=== PATIENT | male | born 1935 | race American Indian/Alaskan Native ===

== ENCOUNTER 2017-10-31 11:09 | Emergency (ER) | payer MEDICARE ==
--- NOTE | 2017-10-31 12:12 | Emergency Department Report ---
ED General Adult HPI - General Chief complaint: Extremity Injury, Lower Stated complaint: OPEN SORES/BLISTERS ON BOTH LEGS Time Seen by Provider: 10/31/17 12:10 Source: patient Mode of arrival: Stretcher Limitations: No Limitations - History of Present Illness Initial comments: Chief complaint: Draining sores both feet, worsening chronic edema both legs. Patient has history of recent hospitalization for wet gangrene of both lower extremities, primarily both feet, which review of discharge summary from hospitalization at [facility] from October 19-, shows patient to have had wet gangrene, with report of maggots in the wound. Patient was treated with diuresis, antibiotics, and chronic medical conditions were also stabilized, and patient was discharged home with prescriptions for antibiotics, and patient was expecting home health care to be taking care of wound daily, but nobody came by. He also got no antibiotics, but lives in assisted living facility, takes care of all of his own activities of daily living, and manages her own medications, and did not fill prescriptions on his own. He comes in for check, primarily because he was getting no care at home, and reports that wound is draining somewhat, but significantly reduced, and chronic edema of both lower extremities is also significantly improved, although he still has significant edema and chronic venous changes of both lower extremities. He has not had any fever chills or diaphoresis, and no pain in his lower extremities. He reports having had CT angiography of both lower extremities, and this was OK, and he has chronic venous changes, and that he takes blood thinners for both his atrial fibrillation and his legs. He is not aware of any diagnosis of pulmonary embolism. Past medical history is significant for insulin-dependent diabetes mellitus, he takes before meals NovoLog, takes Xarelto for atrial fibrillation, as well as medication for hypertension, and intermittent COPD medications, but reports that he had quit smoking approximately 10-15 years ago. He manages to take care of himself at home, but is minimally ambulatory, and primarily gets around by wheelchair, but can stand and transfer okay, and receives meals provided by assisted living facility twice daily. He administers insulin with each meal, 7 units NovoLog. Has no additional acute complaints, no chest pain, no shortness of breath, no abdominal pain, no nausea or vomiting, no focal neurologic symptoms. Review of chart shows patient has an unfilled prescription for Augmentin, to be taken twice daily. Other medications were also refilled at time of discharge. These were also not refilled. Contact with Hospital reveals that patient was felt that his chronic venous insufficiency was too advanced for compression devices, and that he was to be managed in wound care clinic, here at [facility], and appointment had already been made for November 08, 1 week from now, and arrangements for transport her to be made at that time as well. He has not had follow-up with his routine physicians, including his regular [place] primary care physician. Has appointment for these in the coming months. - Related Data Allergies Allergy/AdvReac Type Severity Reaction Status Date / Time morphine AdvReac Vomiting Verified 10/31/17 14:15 ED Review of Systems ROS: Stated complaint: OPEN SORES/BLISTERS ON BOTH LEGS Other details as noted in HPI Comment: All other systems reviewed and negative Constitutional: denies: chills, diaphoresis, fever, malaise, weakness ENT: denies: throat pain Respiratory: denies: orthopnea, shortness of breath Cardiovascular: denies: chest pain, palpitations, edema, syncope Endocrine: no symptoms reported Gastrointestinal: denies: abdominal pain, nausea, diarrhea Musculoskeletal: denies: back pain, joint swelling, arthralgia Skin: other (chronic venous insufficiency changes with thickening of skin of both lower extremities,) Neurological: numbness (chronic neuropathy, both lower extremities), abnormal gait (limited ambulation, chronic, secondary to neuropathy and chronic leg edema ) Psychiatric: denies: anxiety, depression Hematological/Lymphatic: denies: easy bleeding, easy bruising ED Past Medical Hx - Past Medical History Previous Medical History?: Yes Hx Hypertension: Yes Hx Diabetes: Yes Additional medical history: Chronic venous insufficiency both lower extremities, - Surgical History Past Surgical History?: Yes Hx Open Heart Surgery: Yes - Social History Smoking Status: Never Smoker Substance Use Type: None ED Physical Exam - General Limitations: No Limitations General appearance: alert, in no apparent distress - Head Head exam: Present: atraumatic, normocephalic - ENT ENT exam: Present: normal exam, mucous membranes moist - Neck Neck exam: Present: normal inspection, full ROM. Absent: tenderness - Respiratory Respiratory exam: Present: normal lung sounds bilaterally. Absent: respiratory distress, wheezes, rales, rhonchi, chest wall tenderness - Cardiovascular Cardiovascular Exam: Present: regular rate, normal heart sounds - GI/Abdominal GI/Abdominal exam: Present: soft, normal bowel sounds. Absent: tenderness - Extremities Exam Extremities exam: Present: pedal edema (bilateral, marked, chronic), other ( marked chronic bilateral skin thickening secondary to chronic venous insufficiency, with areas of secondary desquamation dorsum of both feet, dry, no acute drainage identified, no overt gangrene). Absent: tenderness - Back Exam Back exam: Present: normal inspection. Absent: tenderness - Neurological Exam Neurological exam: Present: alert, CN II-XII intact, other (equal bilateral effort to move both lower extremities, but unable to lift off of stretcher due to weightman generalized weakness) - Psychiatric Psychiatric exam: Present: normal affect, normal mood - Skin Skin exam: Present: other (chronic bilateral venous changes both lower extremities, with marked thickening, lichenification, scaling, no active drainage) ED Course Vital Signs 10/31/17 11:30 Temperature 37.0 C Pulse Rate 72 Respiratory 18 Rate Blood Pressure 160/57 O2 Sat by Pulse 97 Oximetry ED Medical Decision Making - Medical Decision Making Patient has significant chronic venous insufficiency both lower extremities, but is stable with no evidence of acute inflammation or infection, with stable laboratory evaluation. Patient himself reports that edema is less than when he was hospitalized one week ago at [facility], and that drainage has almost completely subsided. He primarily comes in because he did not get his antibiotics, and apparently was unaware that he had a prescription and was responsible for obtaining his medications. He also has an appointment for follow-up in clinic, here at [facility], as he is felt to be too far advanced for outpatient treatment by home health, which is the proximate reason why he did not have any visits. Patient was explaining this, given initial dose of Augmentin, and will be referred back for outpatient follow-up, as she shows no signs of acute infection or decompensation. 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 He is stable for return to his prior level of care, and should have adequate treatment once he fills his Augmentin prescription - Differential Diagnosis cellulitis, gangrene, chronic venous insufficiency Critical Care Time: No Critical care attestation.: If time is entered above; I have spent that time in minutes in the direct care of this critically ill patient, excluding procedure time. 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 steam pan sponger use Diabetes mellitus complication status: with circulatory complication Diabetes mellitus complication detail: with other circulatory complications Qualified Code(s): E11.59 - Type 2 diabetes mellitus with other circulatory complications; Z79.4 - nursing home (current) use of insulin Disposition: TO HOME OR SELFCARE Is pt being admited?: No Does the pt Need Aspirin: No Condition: Stable Instructions: Diabetes Mellitus Type 2 in Adults (ED), Peripheral Vascular Disorders (ED), Stasis Dermatitis (ED) Additional Instructions: Your physical exam is stable today, with your legs showing no signs of recurrence of infection. You have a prescription for Augmentin, should have this filled, and take medicine twice daily. We have given first dose in the emergency department. You have an appointment for visit by the wound care clinic on November 08, and transfer request arrangements have or even made according to paperwork sent by your facility. Keep her legs elevated as much as possible, but you should change positions several times during the day, as this will keep fluid moving through your system , and increase fluid removal by your kidneys. Continue your other medications as before. Time of Disposition: 14:34
[2017-10-31 13:55] LABS: Alanine Aminotransferase 16 units/L (7-56); Albumin 3.1 g/dL (3.9-5); BUN/Creatinine Ratio 19; Blood Urea Nitrogen 15 mg/dL (9-20); Calcium 8.2 mg/dL (8.4-10.2); Hemolysis Index 7
[2017-10-31 13:56] LABS: Basophils # (Auto) 0.1 K/mm3 (0.0-0.1); Basophils % (Auto) 1.4 % (0.0-1.8); Eosinophils # (Auto) 0.3 K/mm3 (0.0-0.4); Hematocrit 33.2 % (35.5-45.6); Hemoglobin 10.7 gm/dl (11.8-15.2); Lymphocytes # (Auto) 1.6 K/mm3 (1.2-5.4); Lymphocytes % (Auto) 20.5 % (13.4-35.0); Mean Corpuscular HGB Conc 32 % (32-34); Mean Corpuscular Hemoglobin 27 pg (28-32); Mean Corpuscular Volume 84 fl (84-94); Monocytes # (Auto) 0.6 K/mm3 (0.0-0.8); Monocytes % (Auto) 7.4 % (0.0-7.3); Platelet Count 311 K/mm3 (140-440); Red Blood Count 3.97 M/mm3 (3.65-5.03); Red Cell Distribution Width 16.3 % (13.2-15.2)
[2017-10-31] MEDS ORDERED: AUGMENTIN 875 MG PO ONE (14:41)
[2017-10-31 15:12] VITALS: BP 164/76
== END 2017-10-31 15:27 | disposition home or self-care (01) ==
LOC: ED 11:09
DX: I87.2 Venous insufficiency (chronic) (peripheral) (principal); I10 Essential (primary) hypertension; I48.91 Unspecified atrial fibrillation; J44.9 Chronic obstructive pulmonary disease, unspecified; E11.59 Type 2 diabetes mellitus with other circulatory complications; Z79.4 Long term (current) use of insulin; Z88.5 Allergy status to narcotic agent
CPT/HCPCS: 36415; 80053; 82140; 83735; 83880; 85025; 85379; 99283

== ENCOUNTER 2017-11-08 09:38 | Outpatient (CLI) | payer MEDICARE ==
[2017-11-08] MEDS ORDERED: XYLOCAINE TOPICAL 4% TP ONE ×2 (10:32→12:25)
== END 2017-11-08 09:39 | disposition home or self-care (01) ==
LOC: WOUND 09:38
PROVIDERS: ATTEND Surgery
DX: E11.621 Type 2 diabetes mellitus with foot ulcer (principal); L97.512 Non-pressure chronic ulcer of other part of right foot with fat layer exposed; L97.522 Non-pressure chronic ulcer of other part of left foot with fat layer exposed; I25.10 Atherosclerotic heart disease of native coronary artery without angina pectoris; I89.0 Lymphedema, not elsewhere classified; I10 Essential (primary) hypertension; Z87.891 Personal history of nicotine dependence
CPT/HCPCS: 11042; 11045; G0463

== ENCOUNTER 2017-11-15 09:20 | Outpatient (CLI) | payer MEDICARE ==
[2017-11-15] MEDS ORDERED: XYLOCAINE TOPICAL 4% TP ONE ×2 (10:06→10:47)
[2017-11-15] MEDS ORDERED: AD OINTMENT TP ONE (10:06)
[2017-11-15] MEDS ORDERED: AD OINTMENT TP PRN (10:49)
== END 2017-11-15 09:21 | disposition home or self-care (01) ==
LOC: WOUND 09:20
PROVIDERS: ATTEND Surgery
DX: E11.621 Type 2 diabetes mellitus with foot ulcer (principal); L97.412 Non-pressure chronic ulcer of right heel and midfoot with fat layer exposed; L97.522 Non-pressure chronic ulcer of other part of left foot with fat layer exposed; I25.10 Atherosclerotic heart disease of native coronary artery without angina pectoris; I89.0 Lymphedema, not elsewhere classified; I10 Essential (primary) hypertension; Z87.891 Personal history of nicotine dependence
CPT/HCPCS: A6250

== ENCOUNTER 2017-11-20 11:56 | Outpatient (CLI) | payer MEDICARE ==
--- NOTE | 2017-11-21 11:40 | Vascular Lab Report ---
LOWER EXTREMITY VENOUS DUPLEX: REASON FOR EXAM: Lymphedema. COMMENTS ON THE RIGHT: All veins visualized are freely compressible without evidence of internal echogenicity. Flow is spontaneous and phasic throughout. COMMENTS ON THE LEFT: All veins visualized are freely compressible without evidence of internal echogenicity. Flow is spontaneous and phasic throughout. IMPRESSION: No evidence of acute or chronic deep venous thrombosis in either lower extremity.
== END 2017-11-20 11:57 | disposition home or self-care (01) ==
LOC: VAS 11:56
PROVIDERS: ATTEND Surgery
DX: I89.0 Lymphedema, not elsewhere classified (principal); L97.512 Non-pressure chronic ulcer of other part of right foot with fat layer exposed; L97.522 Non-pressure chronic ulcer of other part of left foot with fat layer exposed; E11.9 Type 2 diabetes mellitus without complications; I10 Essential (primary) hypertension; I73.9 Peripheral vascular disease, unspecified; Z88.6 Allergy status to analgesic agent
CPT/HCPCS: 93970

== ENCOUNTER 2017-11-22 09:33 | Outpatient (CLI) | payer MEDICARE ==
[2017-11-22] MEDS ORDERED: AD OINTMENT TP ONE (10:30)
[2017-11-22] MEDS ORDERED: XYLOCAINE TOPICAL 4% TP ONE (10:31)
[2017-11-23] MEDS ORDERED: AD OINTMENT TP SCH (10:00)
== END 2017-11-22 09:34 | disposition home or self-care (01) ==
LOC: WOUND 09:33
PROVIDERS: ATTEND Surgery
DX: E11.621 Type 2 diabetes mellitus with foot ulcer (principal); L97.522 Non-pressure chronic ulcer of other part of left foot with fat layer exposed; L97.419 Non-pressure chronic ulcer of right heel and midfoot with unspecified severity; I25.10 Atherosclerotic heart disease of native coronary artery without angina pectoris; I89.0 Lymphedema, not elsewhere classified; I10 Essential (primary) hypertension; Z87.891 Personal history of nicotine dependence
CPT/HCPCS: 29580; 29581; A6250

== ENCOUNTER → 2017-11-28 | Outpatient (CLI) | payer MEDICARE ==
[~2017-11-28] MED LIST: AD OINTMENT TP ONE; AD OINTMENT TP PRN; XYLOCAINE TOPICAL 4% TP ONE
== END | disposition home or self-care (01) ==
LOC: WOUND 12:59
PROVIDERS: ATTEND Surgery
DX: E11.621 Type 2 diabetes mellitus with foot ulcer (principal); L97.522 Non-pressure chronic ulcer of other part of left foot with fat layer exposed; L97.512 Non-pressure chronic ulcer of other part of right foot with fat layer exposed; I25.10 Atherosclerotic heart disease of native coronary artery without angina pectoris; I89.0 Lymphedema, not elsewhere classified; I10 Essential (primary) hypertension; Z87.891 Personal history of nicotine dependence
CPT/HCPCS: 29581; A6250

== ENCOUNTER 2017-12-05 10:54 | Outpatient (CLI) | payer MEDICARE ==
[2017-12-05] MEDS ORDERED: AD OINTMENT TP ONE (11:47)
[2017-12-05] MEDS ORDERED: XYLOCAINE TOPICAL 4% TP ONE ×2 (11:48→15:52)
[2017-12-06] MEDS ORDERED: AD OINTMENT TP SCH (10:00)
== END 2017-12-05 10:55 | disposition home or self-care (01) ==
LOC: WOUND 10:54
PROVIDERS: ATTEND Surgery
DX: E11.621 Type 2 diabetes mellitus with foot ulcer (principal); L97.522 Non-pressure chronic ulcer of other part of left foot with fat layer exposed; L97.512 Non-pressure chronic ulcer of other part of right foot with fat layer exposed; I25.10 Atherosclerotic heart disease of native coronary artery without angina pectoris; I89.0 Lymphedema, not elsewhere classified; I10 Essential (primary) hypertension; Z87.891 Personal history of nicotine dependence
CPT/HCPCS: A6250

== ENCOUNTER 2017-12-12 10:32 | Outpatient (CLI) | payer MEDICARE ==
[2017-12-12] MEDS ORDERED: XYLOCAINE TOPICAL 4% TP ONE ×2 (11:51→15:34)
== END 2017-12-12 10:33 | disposition home or self-care (01) ==
LOC: WOUND 10:32
PROVIDERS: ATTEND Surgery
DX: E11.621 Type 2 diabetes mellitus with foot ulcer (principal); L97.522 Non-pressure chronic ulcer of other part of left foot with fat layer exposed; L97.512 Non-pressure chronic ulcer of other part of right foot with fat layer exposed; I25.10 Atherosclerotic heart disease of native coronary artery without angina pectoris; I89.0 Lymphedema, not elsewhere classified; I10 Essential (primary) hypertension; Z87.891 Personal history of nicotine dependence

== ENCOUNTER 2017-12-19 10:07 | Outpatient (CLI) | payer MEDICARE ==
[2017-12-19] MEDS ORDERED: AD OINTMENT TP ONE (11:18)
[2017-12-19] MEDS ORDERED: XYLOCAINE TOPICAL 2% 30ML TP ONE (11:19)
== END 2017-12-19 10:08 | disposition home or self-care (01) ==
LOC: WOUND 10:07
PROVIDERS: ATTEND Surgery
DX: E11.621 Type 2 diabetes mellitus with foot ulcer (principal); L97.522 Non-pressure chronic ulcer of other part of left foot with fat layer exposed; L97.512 Non-pressure chronic ulcer of other part of right foot with fat layer exposed; I25.10 Atherosclerotic heart disease of native coronary artery without angina pectoris; I89.0 Lymphedema, not elsewhere classified; I10 Essential (primary) hypertension; Z87.891 Personal history of nicotine dependence
CPT/HCPCS: 99213; A6250; G0463

== ENCOUNTER 2018-01-17 11:05 | Outpatient (CLI) | payer MEDICARE ==
[2018-01-17] MEDS ORDERED: XYLOCAINE TOPICAL 4% TP ONE (11:29)
[2018-01-17] MEDS ORDERED: AD OINTMENT TP ONE (12:12)
[2018-01-17] MEDS ORDERED: AD OINTMENT TP PRN (16:42)
== END 2018-01-17 11:06 | disposition home or self-care (01) ==
LOC: WOUND 11:05
PROVIDERS: ATTEND Surgery
DX: E11.621 Type 2 diabetes mellitus with foot ulcer (principal); L97.522 Non-pressure chronic ulcer of other part of left foot with fat layer exposed; L97.512 Non-pressure chronic ulcer of other part of right foot with fat layer exposed; I25.10 Atherosclerotic heart disease of native coronary artery without angina pectoris; I89.0 Lymphedema, not elsewhere classified; I10 Essential (primary) hypertension; Z87.891 Personal history of nicotine dependence
CPT/HCPCS: A6250

== ENCOUNTER 2018-01-31 11:22 | Outpatient (CLI) | payer MEDICARE ==
[2018-01-31] MEDS ORDERED: XYLOCAINE TOPICAL 4% TP ONE (15:43)
[2018-02-05] MEDS ORDERED: XYLOCAINE TOPICAL 4% TP ONE (16:06)
== END 2018-01-31 11:23 | disposition home or self-care (01) ==
LOC: WOUND 11:22
PROVIDERS: ATTEND Surgery
DX: E11.621 Type 2 diabetes mellitus with foot ulcer (principal); L97.512 Non-pressure chronic ulcer of other part of right foot with fat layer exposed; L97.522 Non-pressure chronic ulcer of other part of left foot with fat layer exposed; I25.10 Atherosclerotic heart disease of native coronary artery without angina pectoris; I89.0 Lymphedema, not elsewhere classified; I10 Essential (primary) hypertension; Z87.891 Personal history of nicotine dependence

== ENCOUNTER 2018-04-16 12:40 | Outpatient (CLI) | payer MEDICARE | END 2018-04-16 12:41 | disposition home or self-care (01) | LOC: WOUND 12:40 | PROVIDERS: ATTEND Surgery | DX: E11.622 Type 2 diabetes mellitus with other skin ulcer (principal); L89.892 Pressure ulcer of other site, stage 2; L97.811 Non-pressure chronic ulcer of other part of right lower leg limited to breakdown of skin; E11.621 Type 2 diabetes mellitus with foot ulcer; L97.512 Non-pressure chronic ulcer of other part of right foot with fat layer exposed; L97.522 Non-pressure chronic ulcer of other part of left foot with fat layer exposed; I10 Essential (primary) hypertension; I25.10 Atherosclerotic heart disease of native coronary artery without angina pectoris; I89.0 Lymphedema, not elsewhere classified; Z87.891 Personal history of nicotine dependence ==

== ENCOUNTER 2018-04-25 09:15 | Outpatient (CLI) | payer MEDICARE ==
[2018-04-25] MEDS ORDERED: XYLOCAINE TOPICAL 4% TP ONE (09:43)
== END 2018-04-25 09:16 | disposition home or self-care (01) ==
LOC: WOUND 09:15
PROVIDERS: ATTEND Surgery
DX: E11.622 Type 2 diabetes mellitus with other skin ulcer (principal); L89.892 Pressure ulcer of other site, stage 2; L97.812 Non-pressure chronic ulcer of other part of right lower leg with fat layer exposed; E11.621 Type 2 diabetes mellitus with foot ulcer; L97.512 Non-pressure chronic ulcer of other part of right foot with fat layer exposed; L97.522 Non-pressure chronic ulcer of other part of left foot with fat layer exposed; I25.10 Atherosclerotic heart disease of native coronary artery without angina pectoris; I89.0 Lymphedema, not elsewhere classified; Z87.891 Personal history of nicotine dependence

== ENCOUNTER 2018-04-30 12:53 | Outpatient (CLI) | payer MEDICARE | END 2018-04-30 12:54 | disposition home or self-care (01) | LOC: WOUND 12:53 ==

== ENCOUNTER 2018-05-02 09:40 | Outpatient (CLI) | payer MEDICARE | END 2018-05-02 09:41 | disposition home or self-care (01) | LOC: WOUND 09:40 ==

== ENCOUNTER 2018-05-07 12:53 | Outpatient (CLI) | payer MEDICARE | END 2018-05-07 12:54 | disposition home or self-care (01) | LOC: WOUND 12:53 ==

== ENCOUNTER 2018-05-09 09:39 | Outpatient (CLI) | payer MEDICARE ==
[2018-05-09] MEDS ORDERED: AD OINTMENT TP PRN (10:30)
== END 2018-05-09 09:40 | disposition home or self-care (01) ==
LOC: WOUND 09:39
PROVIDERS: ATTEND Surgery
DX: E11.622 Type 2 diabetes mellitus with other skin ulcer (principal); L89.892 Pressure ulcer of other site, stage 2; L97.812 Non-pressure chronic ulcer of other part of right lower leg with fat layer exposed; E11.621 Type 2 diabetes mellitus with foot ulcer; L97.512 Non-pressure chronic ulcer of other part of right foot with fat layer exposed; L97.522 Non-pressure chronic ulcer of other part of left foot with fat layer exposed; I25.10 Atherosclerotic heart disease of native coronary artery without angina pectoris; I89.0 Lymphedema, not elsewhere classified; I10 Essential (primary) hypertension; Z87.891 Personal history of nicotine dependence
CPT/HCPCS: A6250

== ENCOUNTER 2018-05-15 09:56 | Outpatient (CLI) | payer MEDICARE ==
--- NOTE | 2018-05-15 14:07 | Vascular Lab Report ---
FINAL REPORT EXAM: VL ARTERIAL DUPLEX LE BILAT HISTORY: L97.5176 NON-PRESSURE CHRONIC ULCER OF OTHER PART OF RIGHTFOOTWFA TECHNIQUE: Hernandez scale, color and pulsed Doppler ultrasound with color flow and spectral analysis micha luation of both lower extremities arteries were performed. PRIORS: None currently available. FINDINGS: RIGHT EXTREMITY: Distal iliac, RESTAURANT INSPECTOR, proximal SFA, DFA, mid SFA, distal SFA, popliteal, RADIOLOGY AIDE and MOI velocities in cm/se c: 131, 108, 103, 88, 125, 90, 77, 103, and 30. Monophasic flow in the RADIOLOGY AIDE and MOI. Otherwise triphas ic and biphasic flow in the remainder of the vessels. LEFT EXTREMITY: Distal iliac, RESTAURANT INSPECTOR, proximal SFA, DFA, mid SFA, distal SFA, popliteal, RADIOLOGY AIDE and MOI velocities in cm/se c: 146, 106, 90, 54, 97, 114, 55, 46, and 32. Monophasic flow at the distal SFA down to the ankle. Re mainder of the vessels demonstrate triphasic and biphasic flow. IMPRESSION: Hemodynamically significant stenosis between the right popliteal artery and MOI artery. Moderate to severe disease at the right RADIOLOGY AIDE. Hemodynamically significant stenosis between distal left SFA and popliteal artery.
== END 2018-05-15 09:57 | disposition home or self-care (01) ==
LOC: VAS 09:56
PROVIDERS: ATTEND Surgery
DX: I70.203 Unspecified atherosclerosis of native arteries of extremities, bilateral legs (principal); L97.512 Non-pressure chronic ulcer of other part of right foot with fat layer exposed; I10 Essential (primary) hypertension; Z88.6 Allergy status to analgesic agent
CPT/HCPCS: 93925

== ENCOUNTER 2018-05-16 13:37 | Outpatient (CLI) | payer MEDICARE | END 2018-05-16 13:38 | disposition home or self-care (01) | LOC: WOUND 13:37 | CPT/HCPCS: 29581 ==

== ENCOUNTER 2018-05-21 13:05 | Outpatient (CLI) | payer MEDICARE | END 2018-05-21 13:06 | disposition home or self-care (01) | LOC: WOUND 13:05 ==

== ENCOUNTER 2018-05-23 09:36 | Outpatient (CLI) | payer MEDICARE ==
[2018-05-23] MEDS ORDERED: XYLOCAINE TOPICAL 4% TP ONE (09:41)
[2018-05-23] MEDS ORDERED: SILVER NITRATE TP ONE (09:42)
[2018-05-23] MEDS ORDERED: AD OINTMENT TP PRN (09:42)
== END 2018-05-23 09:37 | disposition home or self-care (01) ==
LOC: WOUND 09:36
PROVIDERS: ATTEND Surgery
DX: E11.622 Type 2 diabetes mellitus with other skin ulcer (principal); L89.892 Pressure ulcer of other site, stage 2; L97.812 Non-pressure chronic ulcer of other part of right lower leg with fat layer exposed; I25.10 Atherosclerotic heart disease of native coronary artery without angina pectoris; I89.0 Lymphedema, not elsewhere classified; I10 Essential (primary) hypertension; Z87.891 Personal history of nicotine dependence
CPT/HCPCS: A6250

== ENCOUNTER 2018-05-28 12:11 | Outpatient (CLI) | payer MEDICARE | END 2018-05-28 12:12 | disposition home or self-care (01) | LOC: WOUND 12:11 ==

== ENCOUNTER 2018-06-04 12:55 | Outpatient (CLI) | payer MEDICARE | END 2018-06-04 12:56 | disposition home or self-care (01) | LOC: WOUND 12:55 ==

== ENCOUNTER 2018-06-06 09:20 | Outpatient (CLI) | payer MEDICARE | END 2018-06-06 09:21 | disposition home or self-care (01) | LOC: WOUND 09:20 ==

== ENCOUNTER 2018-06-19 09:39 | Outpatient (CLI) | payer MEDICARE | END 2018-06-19 09:40 | disposition home or self-care (01) | LOC: WOUND 09:39 | CPT/HCPCS: 99213; G0463 ==

== ENCOUNTER 2018-07-04 09:27 | Outpatient (CLI) | payer MEDICARE ==
[2018-07-04] MEDS ORDERED: AD OINTMENT TP PRN (10:30)
[2018-07-04] MEDS ORDERED: XYLOCAINE TOPICAL 4% TP ONE (10:30)
== END 2018-07-04 09:28 | disposition home or self-care (01) ==
LOC: WOUND 09:27
PROVIDERS: ATTEND Surgery
DX: E11.621 Type 2 diabetes mellitus with foot ulcer (principal); L97.512 Non-pressure chronic ulcer of other part of right foot with fat layer exposed; L97.522 Non-pressure chronic ulcer of other part of left foot with fat layer exposed; E11.622 Type 2 diabetes mellitus with other skin ulcer; L97.312 Non-pressure chronic ulcer of right ankle with fat layer exposed; L97.822 Non-pressure chronic ulcer of other part of left lower leg with fat layer exposed; I89.0 Lymphedema, not elsewhere classified; I25.10 Atherosclerotic heart disease of native coronary artery without angina pectoris; I10 Essential (primary) hypertension; Z87.891 Personal history of nicotine dependence
CPT/HCPCS: A6250

== ENCOUNTER 2018-07-16 12:52 | Outpatient (CLI) | payer MEDICARE | END 2018-07-16 12:53 | disposition home or self-care (01) | LOC: WOUND 12:52 | PROVIDERS: ATTEND Surgery | DX: E11.621 Type 2 diabetes mellitus with foot ulcer (principal); L97.512 Non-pressure chronic ulcer of other part of right foot with fat layer exposed; L97.522 Non-pressure chronic ulcer of other part of left foot with fat layer exposed; E11.622 Type 2 diabetes mellitus with other skin ulcer; L97.811 Non-pressure chronic ulcer of other part of right lower leg limited to breakdown of skin; L97.821 Non-pressure chronic ulcer of other part of left lower leg limited to breakdown of skin; I10 Essential (primary) hypertension; I25.10 Atherosclerotic heart disease of native coronary artery without angina pectoris; I89.0 Lymphedema, not elsewhere classified; Z87.891 Personal history of nicotine dependence ==

== ENCOUNTER 2018-07-18 09:15 | Outpatient (CLI) | payer MEDICARE ==
[2018-07-18] MEDS ORDERED: XYLOCAINE TOPICAL 4% TP ONE (10:09)
== END 2018-07-18 09:16 | disposition home or self-care (01) ==
LOC: WOUND 09:15
PROVIDERS: ATTEND Surgery
DX: E11.622 Type 2 diabetes mellitus with other skin ulcer (principal); L97.312 Non-pressure chronic ulcer of right ankle with fat layer exposed; L97.822 Non-pressure chronic ulcer of other part of left lower leg with fat layer exposed; E11.621 Type 2 diabetes mellitus with foot ulcer; L97.512 Non-pressure chronic ulcer of other part of right foot with fat layer exposed; L97.522 Non-pressure chronic ulcer of other part of left foot with fat layer exposed; I89.0 Lymphedema, not elsewhere classified; I25.10 Atherosclerotic heart disease of native coronary artery without angina pectoris; I10 Essential (primary) hypertension

== ENCOUNTER 2018-07-23 13:31 | Outpatient (CLI) | payer MEDICARE | END 2018-07-23 13:32 | disposition home or self-care (01) | LOC: WOUND 13:31 | PROVIDERS: ATTEND Surgery | DX: E11.622 Type 2 diabetes mellitus with other skin ulcer (principal); L97.312 Non-pressure chronic ulcer of right ankle with fat layer exposed; L97.822 Non-pressure chronic ulcer of other part of left lower leg with fat layer exposed; E11.621 Type 2 diabetes mellitus with foot ulcer; L97.512 Non-pressure chronic ulcer of other part of right foot with fat layer exposed; L97.522 Non-pressure chronic ulcer of other part of left foot with fat layer exposed; I25.10 Atherosclerotic heart disease of native coronary artery without angina pectoris; I89.0 Lymphedema, not elsewhere classified; I10 Essential (primary) hypertension ==

== ENCOUNTER 2018-07-25 09:31 | Outpatient (CLI) | payer MEDICARE ==
[2018-07-25] MEDS ORDERED: SILVER NITRATE TP ONE (10:00)
[2018-07-25] MEDS ORDERED: XYLOCAINE TOPICAL 4% TP ONE (10:00)
== END 2018-07-25 09:32 | disposition home or self-care (01) ==
LOC: WOUND 09:31
PROVIDERS: ATTEND Surgery
DX: E11.621 Type 2 diabetes mellitus with foot ulcer (principal); L97.512 Non-pressure chronic ulcer of other part of right foot with fat layer exposed; L97.528 Non-pressure chronic ulcer of other part of left foot with other specified severity; E11.622 Type 2 diabetes mellitus with other skin ulcer; L97.312 Non-pressure chronic ulcer of right ankle with fat layer exposed; I89.0 Lymphedema, not elsewhere classified; I25.10 Atherosclerotic heart disease of native coronary artery without angina pectoris; I10 Essential (primary) hypertension; Z87.891 Personal history of nicotine dependence

== ENCOUNTER 2018-07-30 13:33 | Outpatient (CLI) | payer MEDICARE | END 2018-07-30 13:34 | disposition home or self-care (01) | LOC: WOUND 13:33 | PROVIDERS: ATTEND Surgery | DX: E11.621 Type 2 diabetes mellitus with foot ulcer (principal); L97.512 Non-pressure chronic ulcer of other part of right foot with fat layer exposed; L97.522 Non-pressure chronic ulcer of other part of left foot with fat layer exposed; E11.622 Type 2 diabetes mellitus with other skin ulcer; L97.311 Non-pressure chronic ulcer of right ankle limited to breakdown of skin; I10 Essential (primary) hypertension; I25.10 Atherosclerotic heart disease of native coronary artery without angina pectoris; I89.0 Lymphedema, not elsewhere classified; Z87.891 Personal history of nicotine dependence ==

== ENCOUNTER 2018-08-01 09:22 | Outpatient (CLI) | payer MEDICARE ==
[2018-08-01] MEDS ORDERED: XYLOCAINE TOPICAL 4% TP ONE (09:29)
[2018-08-01] MEDS ORDERED: AD OINTMENT TP PRN (09:30)
== END 2018-08-01 09:23 | disposition home or self-care (01) ==
LOC: WOUND 09:22
PROVIDERS: ATTEND Surgery
DX: E11.621 Type 2 diabetes mellitus with foot ulcer (principal); L97.512 Non-pressure chronic ulcer of other part of right foot with fat layer exposed; L97.522 Non-pressure chronic ulcer of other part of left foot with fat layer exposed; E11.622 Type 2 diabetes mellitus with other skin ulcer; L97.311 Non-pressure chronic ulcer of right ankle limited to breakdown of skin; I10 Essential (primary) hypertension; I25.10 Atherosclerotic heart disease of native coronary artery without angina pectoris; I89.0 Lymphedema, not elsewhere classified; Z87.891 Personal history of nicotine dependence
CPT/HCPCS: A6250

== ENCOUNTER 2018-08-08 09:41 | Outpatient (CLI) | payer MEDICARE | END 2018-08-08 09:42 | disposition home or self-care (01) | LOC: WOUND 09:41 | PROVIDERS: ATTEND Surgery | DX: E11.621 Type 2 diabetes mellitus with foot ulcer (principal); L97.512 Non-pressure chronic ulcer of other part of right foot with fat layer exposed; L97.522 Non-pressure chronic ulcer of other part of left foot with fat layer exposed; E11.622 Type 2 diabetes mellitus with other skin ulcer; L97.319 Non-pressure chronic ulcer of right ankle with unspecified severity; I25.10 Atherosclerotic heart disease of native coronary artery without angina pectoris; I89.0 Lymphedema, not elsewhere classified; I10 Essential (primary) hypertension; Z87.891 Personal history of nicotine dependence ==

== ENCOUNTER 2018-08-13 14:00 | Outpatient (CLI) | payer MEDICARE | END 2018-08-13 14:01 | disposition home or self-care (01) | LOC: WOUND 14:00 | PROVIDERS: ATTEND Surgery | DX: E11.621 Type 2 diabetes mellitus with foot ulcer (principal); L97.512 Non-pressure chronic ulcer of other part of right foot with fat layer exposed; L97.522 Non-pressure chronic ulcer of other part of left foot with fat layer exposed; I25.10 Atherosclerotic heart disease of native coronary artery without angina pectoris; I89.0 Lymphedema, not elsewhere classified; I10 Essential (primary) hypertension; Z87.891 Personal history of nicotine dependence ==

== ENCOUNTER 2018-08-15 09:24 | Outpatient (CLI) | payer MEDICARE ==
[2018-08-15] MEDS ORDERED: XYLOCAINE TOPICAL 4% TP NR (10:00)
== END 2018-08-15 09:25 | disposition home or self-care (01) ==
LOC: WOUND 09:24
PROVIDERS: ATTEND Surgery
DX: E11.621 Type 2 diabetes mellitus with foot ulcer (principal); L97.512 Non-pressure chronic ulcer of other part of right foot with fat layer exposed; L97.522 Non-pressure chronic ulcer of other part of left foot with fat layer exposed; I25.10 Atherosclerotic heart disease of native coronary artery without angina pectoris; I89.0 Lymphedema, not elsewhere classified; I10 Essential (primary) hypertension; Z87.891 Personal history of nicotine dependence

== ENCOUNTER 2018-08-20 13:05 | Outpatient (CLI) | payer MEDICARE | END 2018-08-20 13:06 | disposition home or self-care (01) | LOC: WOUND 13:05 | PROVIDERS: ATTEND Surgery | DX: E11.621 Type 2 diabetes mellitus with foot ulcer (principal); L97.512 Non-pressure chronic ulcer of other part of right foot with fat layer exposed; L97.522 Non-pressure chronic ulcer of other part of left foot with fat layer exposed; I25.10 Atherosclerotic heart disease of native coronary artery without angina pectoris; I89.0 Lymphedema, not elsewhere classified; I10 Essential (primary) hypertension; Z87.891 Personal history of nicotine dependence ==

== ENCOUNTER 2018-08-22 09:17 | Outpatient (CLI) | payer MEDICARE | END 2018-08-22 09:18 | disposition home or self-care (01) | LOC: WOUND 09:17 | PROVIDERS: ATTEND Surgery | DX: E11.621 Type 2 diabetes mellitus with foot ulcer (principal); L97.512 Non-pressure chronic ulcer of other part of right foot with fat layer exposed; L97.522 Non-pressure chronic ulcer of other part of left foot with fat layer exposed; I25.10 Atherosclerotic heart disease of native coronary artery without angina pectoris; I89.0 Lymphedema, not elsewhere classified; I10 Essential (primary) hypertension; Z87.891 Personal history of nicotine dependence ==

== ENCOUNTER 2018-08-29 09:28 | Outpatient (CLI) | payer MEDICARE ==
[2018-08-29] MEDS ORDERED: SILVER NITRATE TP ONE (10:00)
[2018-08-29] MEDS ORDERED: XYLOCAINE TOPICAL 2% 5ML TP ONE (10:00)
== END 2018-08-29 09:29 | disposition home or self-care (01) ==
LOC: WOUND 09:28
PROVIDERS: ATTEND Surgery
DX: E11.621 Type 2 diabetes mellitus with foot ulcer (principal); L97.512 Non-pressure chronic ulcer of other part of right foot with fat layer exposed; L97.522 Non-pressure chronic ulcer of other part of left foot with fat layer exposed; I25.10 Atherosclerotic heart disease of native coronary artery without angina pectoris; I89.0 Lymphedema, not elsewhere classified; I10 Essential (primary) hypertension; Z87.891 Personal history of nicotine dependence

== ENCOUNTER 2018-09-05 09:22 | Outpatient (CLI) | payer MEDICARE | END 2018-09-05 09:23 | disposition home or self-care (01) | LOC: WOUND 09:22 | PROVIDERS: ATTEND Surgery | DX: E11.621 Type 2 diabetes mellitus with foot ulcer (principal); L97.512 Non-pressure chronic ulcer of other part of right foot with fat layer exposed; L97.522 Non-pressure chronic ulcer of other part of left foot with fat layer exposed; I25.10 Atherosclerotic heart disease of native coronary artery without angina pectoris; I89.0 Lymphedema, not elsewhere classified; I10 Essential (primary) hypertension; Z87.891 Personal history of nicotine dependence ==

== ENCOUNTER 2018-09-12 09:15 | Outpatient (CLI) | payer MEDICARE ==
[2018-09-12] MEDS ORDERED: SILVER NITRATE TP ONE (10:00)
[2018-09-12] MEDS ORDERED: XYLOCAINE TOPICAL 4% TP ONE (10:00)
== END 2018-09-12 09:16 | disposition home or self-care (01) ==
LOC: WOUND 09:15
PROVIDERS: ATTEND Surgery
DX: E11.621 Type 2 diabetes mellitus with foot ulcer (principal); L97.512 Non-pressure chronic ulcer of other part of right foot with fat layer exposed; L97.522 Non-pressure chronic ulcer of other part of left foot with fat layer exposed; I25.10 Atherosclerotic heart disease of native coronary artery without angina pectoris; I89.0 Lymphedema, not elsewhere classified; I10 Essential (primary) hypertension; Z87.891 Personal history of nicotine dependence

== ENCOUNTER 2018-09-17 13:20 | Outpatient (CLI) | payer MEDICARE | END 2018-09-17 13:21 | disposition home or self-care (01) | LOC: WOUND 13:20 | PROVIDERS: ATTEND Surgery | DX: E11.621 Type 2 diabetes mellitus with foot ulcer (principal); L97.512 Non-pressure chronic ulcer of other part of right foot with fat layer exposed; L89.891 Pressure ulcer of other site, stage 1; I25.10 Atherosclerotic heart disease of native coronary artery without angina pectoris; L97.522 Non-pressure chronic ulcer of other part of left foot with fat layer exposed; I89.0 Lymphedema, not elsewhere classified; I10 Essential (primary) hypertension; Z87.891 Personal history of nicotine dependence ==

== ENCOUNTER 2018-09-19 10:27 | Outpatient (CLI) | payer MEDICARE | END 2018-09-19 10:28 | disposition home or self-care (01) | LOC: WOUND 10:27 | PROVIDERS: ATTEND Surgery | DX: E11.621 Type 2 diabetes mellitus with foot ulcer (principal); L97.512 Non-pressure chronic ulcer of other part of right foot with fat layer exposed; L97.522 Non-pressure chronic ulcer of other part of left foot with fat layer exposed; I87.313 Chronic venous hypertension (idiopathic) with ulcer of bilateral lower extremity; I87.2 Venous insufficiency (chronic) (peripheral); E11.622 Type 2 diabetes mellitus with other skin ulcer; L97.822 Non-pressure chronic ulcer of other part of left lower leg with fat layer exposed; I25.10 Atherosclerotic heart disease of native coronary artery without angina pectoris; I89.0 Lymphedema, not elsewhere classified; Z87.891 Personal history of nicotine dependence ==

== ENCOUNTER 2018-09-26 10:33 | Outpatient (CLI) | payer MEDICARE | END 2018-09-26 10:34 | disposition home or self-care (01) | LOC: WOUND 10:33 | PROVIDERS: ATTEND Surgery | DX: E11.621 Type 2 diabetes mellitus with foot ulcer (principal); L97.512 Non-pressure chronic ulcer of other part of right foot with fat layer exposed; L97.522 Non-pressure chronic ulcer of other part of left foot with fat layer exposed; I87.313 Chronic venous hypertension (idiopathic) with ulcer of bilateral lower extremity; I87.2 Venous insufficiency (chronic) (peripheral); E11.622 Type 2 diabetes mellitus with other skin ulcer; L97.822 Non-pressure chronic ulcer of other part of left lower leg with fat layer exposed; I25.10 Atherosclerotic heart disease of native coronary artery without angina pectoris; I89.0 Lymphedema, not elsewhere classified; Z87.891 Personal history of nicotine dependence ==

== ENCOUNTER 2018-10-01 13:22 | Outpatient (CLI) | payer MEDICARE | END 2018-10-01 13:23 | disposition home or self-care (01) | LOC: WOUND 13:22 | PROVIDERS: ATTEND Surgery | DX: E11.621 Type 2 diabetes mellitus with foot ulcer (principal); L97.512 Non-pressure chronic ulcer of other part of right foot with fat layer exposed; L97.522 Non-pressure chronic ulcer of other part of left foot with fat layer exposed; I87.313 Chronic venous hypertension (idiopathic) with ulcer of bilateral lower extremity; E11.622 Type 2 diabetes mellitus with other skin ulcer; L97.822 Non-pressure chronic ulcer of other part of left lower leg with fat layer exposed; I25.10 Atherosclerotic heart disease of native coronary artery without angina pectoris; I89.0 Lymphedema, not elsewhere classified; Z87.891 Personal history of nicotine dependence ==

== ENCOUNTER 2018-10-03 10:00 | Outpatient (CLI) | payer MEDICARE | END 2018-10-03 10:01 | disposition home or self-care (01) | LOC: WOUND 10:00 | PROVIDERS: ATTEND Surgery | DX: E11.621 Type 2 diabetes mellitus with foot ulcer (principal); L89.891 Pressure ulcer of other site, stage 1; L97.512 Non-pressure chronic ulcer of other part of right foot with fat layer exposed; L97.522 Non-pressure chronic ulcer of other part of left foot with fat layer exposed; I87.313 Chronic venous hypertension (idiopathic) with ulcer of bilateral lower extremity; I87.2 Venous insufficiency (chronic) (peripheral); I25.10 Atherosclerotic heart disease of native coronary artery without angina pectoris; I89.0 Lymphedema, not elsewhere classified; Z87.891 Personal history of nicotine dependence ==

== ENCOUNTER 2018-10-08 13:16 | Outpatient (CLI) | payer MEDICARE | END 2018-10-08 13:17 | disposition home or self-care (01) | LOC: WOUND 13:16 | PROVIDERS: ATTEND Surgery | DX: E11.621 Type 2 diabetes mellitus with foot ulcer (principal); I87.313 Chronic venous hypertension (idiopathic) with ulcer of bilateral lower extremity; L89.891 Pressure ulcer of other site, stage 1; L97.512 Non-pressure chronic ulcer of other part of right foot with fat layer exposed; L97.522 Non-pressure chronic ulcer of other part of left foot with fat layer exposed; I25.10 Atherosclerotic heart disease of native coronary artery without angina pectoris; I89.0 Lymphedema, not elsewhere classified; Z87.891 Personal history of nicotine dependence ==

== ENCOUNTER 2018-10-10 13:30 | Outpatient (CLI) | payer MEDICARE | END 2018-10-10 13:31 | disposition home or self-care (01) | LOC: WOUND 13:30 | PROVIDERS: ATTEND Surgery | DX: E11.621 Type 2 diabetes mellitus with foot ulcer (principal); I87.313 Chronic venous hypertension (idiopathic) with ulcer of bilateral lower extremity; L89.891 Pressure ulcer of other site, stage 1; L97.522 Non-pressure chronic ulcer of other part of left foot with fat layer exposed; I25.10 Atherosclerotic heart disease of native coronary artery without angina pectoris; I89.0 Lymphedema, not elsewhere classified; I87.2 Venous insufficiency (chronic) (peripheral); Z87.891 Personal history of nicotine dependence ==

== ENCOUNTER 2018-10-15 13:47 | Outpatient (CLI) | payer MEDICARE | END 2018-10-15 13:48 | disposition home or self-care (01) | LOC: WOUND 13:47 | PROVIDERS: ATTEND Surgery | DX: E11.621 Type 2 diabetes mellitus with foot ulcer (principal); I87.313 Chronic venous hypertension (idiopathic) with ulcer of bilateral lower extremity; L97.522 Non-pressure chronic ulcer of other part of left foot with fat layer exposed; L97.512 Non-pressure chronic ulcer of other part of right foot with fat layer exposed; L89.891 Pressure ulcer of other site, stage 1; I25.10 Atherosclerotic heart disease of native coronary artery without angina pectoris; I89.0 Lymphedema, not elsewhere classified; I87.2 Venous insufficiency (chronic) (peripheral); Z87.891 Personal history of nicotine dependence ==

== ENCOUNTER 2018-10-17 10:53 | Outpatient (CLI) | payer MEDICARE | END 2018-10-17 10:54 | disposition home or self-care (01) | LOC: WOUND 10:53 | PROVIDERS: ATTEND Surgery | DX: E11.621 Type 2 diabetes mellitus with foot ulcer (principal); I87.313 Chronic venous hypertension (idiopathic) with ulcer of bilateral lower extremity; L97.522 Non-pressure chronic ulcer of other part of left foot with fat layer exposed; L89.891 Pressure ulcer of other site, stage 1; L97.512 Non-pressure chronic ulcer of other part of right foot with fat layer exposed; I25.10 Atherosclerotic heart disease of native coronary artery without angina pectoris; I89.0 Lymphedema, not elsewhere classified; I87.2 Venous insufficiency (chronic) (peripheral); Z87.891 Personal history of nicotine dependence ==

== ENCOUNTER 2018-10-22 13:41 | Outpatient (CLI) | payer MEDICARE | END 2018-10-22 13:42 | disposition home or self-care (01) | LOC: WOUND 13:41 | PROVIDERS: ATTEND Surgery | DX: E11.621 Type 2 diabetes mellitus with foot ulcer (principal); I87.313 Chronic venous hypertension (idiopathic) with ulcer of bilateral lower extremity; L97.522 Non-pressure chronic ulcer of other part of left foot with fat layer exposed; L89.891 Pressure ulcer of other site, stage 1; L97.512 Non-pressure chronic ulcer of other part of right foot with fat layer exposed; I25.10 Atherosclerotic heart disease of native coronary artery without angina pectoris; I89.0 Lymphedema, not elsewhere classified; I87.2 Venous insufficiency (chronic) (peripheral); Z87.891 Personal history of nicotine dependence ==

== ENCOUNTER 2018-10-24 09:56 | Outpatient (CLI) | payer MEDICARE ==
[2018-10-24] MEDS ORDERED: SILVER NITRATE TP ONE (10:30)
[2018-10-24] MEDS ORDERED: XYLOCAINE TOPICAL 4% TP ONE (10:30)
== END 2018-10-24 09:57 | disposition home or self-care (01) ==
LOC: WOUND 09:56
PROVIDERS: ATTEND Surgery
DX: E11.621 Type 2 diabetes mellitus with foot ulcer (principal); I87.313 Chronic venous hypertension (idiopathic) with ulcer of bilateral lower extremity; L97.522 Non-pressure chronic ulcer of other part of left foot with fat layer exposed; L89.891 Pressure ulcer of other site, stage 1; L97.512 Non-pressure chronic ulcer of other part of right foot with fat layer exposed; I25.10 Atherosclerotic heart disease of native coronary artery without angina pectoris; I89.0 Lymphedema, not elsewhere classified; I87.2 Venous insufficiency (chronic) (peripheral); Z87.891 Personal history of nicotine dependence

== ENCOUNTER 2018-10-31 10:54 | Outpatient (CLI) | payer MEDICARE | END 2018-10-31 10:55 | disposition home or self-care (01) | LOC: WOUND 10:54 | PROVIDERS: ATTEND Surgery | DX: E11.621 Type 2 diabetes mellitus with foot ulcer (principal); I87.313 Chronic venous hypertension (idiopathic) with ulcer of bilateral lower extremity; L97.522 Non-pressure chronic ulcer of other part of left foot with fat layer exposed; L89.891 Pressure ulcer of other site, stage 1; L97.512 Non-pressure chronic ulcer of other part of right foot with fat layer exposed; I25.10 Atherosclerotic heart disease of native coronary artery without angina pectoris; I89.0 Lymphedema, not elsewhere classified; I87.2 Venous insufficiency (chronic) (peripheral); Z87.891 Personal history of nicotine dependence ==

== ENCOUNTER 2018-11-07 09:55 | Outpatient (CLI) | payer MEDICARE | END 2018-11-07 09:56 | disposition home or self-care (01) | LOC: WOUND 09:55 | PROVIDERS: ATTEND Surgery | DX: E11.621 Type 2 diabetes mellitus with foot ulcer (principal); I87.313 Chronic venous hypertension (idiopathic) with ulcer of bilateral lower extremity; L97.522 Non-pressure chronic ulcer of other part of left foot with fat layer exposed; L89.891 Pressure ulcer of other site, stage 1; L97.512 Non-pressure chronic ulcer of other part of right foot with fat layer exposed; I25.10 Atherosclerotic heart disease of native coronary artery without angina pectoris; I89.0 Lymphedema, not elsewhere classified; I87.2 Venous insufficiency (chronic) (peripheral); Z87.891 Personal history of nicotine dependence ==

== ENCOUNTER 2018-11-21 10:20 | Outpatient (CLI) | payer MEDICARE ==
[2018-11-21] MEDS ORDERED: AD OINTMENT TP PRN (11:30)
== END 2018-11-21 10:21 | disposition home or self-care (01) ==
LOC: WOUND 10:20
PROVIDERS: ATTEND Surgery
DX: E11.621 Type 2 diabetes mellitus with foot ulcer (principal); I87.313 Chronic venous hypertension (idiopathic) with ulcer of bilateral lower extremity; L97.522 Non-pressure chronic ulcer of other part of left foot with fat layer exposed; L89.891 Pressure ulcer of other site, stage 1; L97.512 Non-pressure chronic ulcer of other part of right foot with fat layer exposed; I25.10 Atherosclerotic heart disease of native coronary artery without angina pectoris; I89.0 Lymphedema, not elsewhere classified; I87.2 Venous insufficiency (chronic) (peripheral); Z87.891 Personal history of nicotine dependence
CPT/HCPCS: A6250

== ENCOUNTER 2018-11-28 10:36 | Outpatient (CLI) | payer MEDICARE | END 2018-11-28 10:37 | disposition home or self-care (01) | LOC: WOUND 10:36 | PROVIDERS: ATTEND Surgery | DX: E11.621 Type 2 diabetes mellitus with foot ulcer (principal); I87.313 Chronic venous hypertension (idiopathic) with ulcer of bilateral lower extremity; L97.522 Non-pressure chronic ulcer of other part of left foot with fat layer exposed; L89.891 Pressure ulcer of other site, stage 1; L97.512 Non-pressure chronic ulcer of other part of right foot with fat layer exposed; I25.10 Atherosclerotic heart disease of native coronary artery without angina pectoris; I89.0 Lymphedema, not elsewhere classified; I87.2 Venous insufficiency (chronic) (peripheral); Z87.891 Personal history of nicotine dependence ==

== ENCOUNTER 2018-12-05 09:54 | Outpatient (CLI) | payer MEDICARE ==
[2018-12-05] MEDS ORDERED: AD OINTMENT TP PRN (10:01)
== END 2018-12-05 09:55 | disposition home or self-care (01) ==
LOC: WOUND 09:54
PROVIDERS: ATTEND Surgery
DX: E11.621 Type 2 diabetes mellitus with foot ulcer (principal); I87.313 Chronic venous hypertension (idiopathic) with ulcer of bilateral lower extremity; L97.522 Non-pressure chronic ulcer of other part of left foot with fat layer exposed; L89.891 Pressure ulcer of other site, stage 1; L97.512 Non-pressure chronic ulcer of other part of right foot with fat layer exposed; I89.0 Lymphedema, not elsewhere classified; I87.2 Venous insufficiency (chronic) (peripheral); I25.10 Atherosclerotic heart disease of native coronary artery without angina pectoris; Z87.891 Personal history of nicotine dependence
CPT/HCPCS: A6250

== ENCOUNTER 2018-12-12 09:31 | Outpatient (CLI) | payer MEDICARE ==
[2018-12-12] MEDS ORDERED: AD OINTMENT TP PRN (10:00)
[2018-12-12] MEDS ORDERED: XYLOCAINE TOPICAL 4% TP ONE (10:00)
== END 2018-12-12 09:32 | disposition home or self-care (01) ==
LOC: WOUND 09:31
PROVIDERS: ATTEND Surgery
DX: E11.621 Type 2 diabetes mellitus with foot ulcer (principal); I87.313 Chronic venous hypertension (idiopathic) with ulcer of bilateral lower extremity; L97.522 Non-pressure chronic ulcer of other part of left foot with fat layer exposed; L89.891 Pressure ulcer of other site, stage 1; L97.512 Non-pressure chronic ulcer of other part of right foot with fat layer exposed; I89.0 Lymphedema, not elsewhere classified; I87.2 Venous insufficiency (chronic) (peripheral); I25.10 Atherosclerotic heart disease of native coronary artery without angina pectoris; Z87.891 Personal history of nicotine dependence
CPT/HCPCS: A6250

== ENCOUNTER 2018-12-19 09:31 | Outpatient (CLI) | payer MEDICARE ==
[2018-12-19] MEDS ORDERED: AD OINTMENT TP PRN (10:30)
[2018-12-19] MEDS ORDERED: XYLOCAINE TOPICAL 4% TP ONE (10:30)
== END 2018-12-19 09:32 | disposition home or self-care (01) ==
LOC: WOUND 09:31
PROVIDERS: ATTEND Surgery
DX: E11.621 Type 2 diabetes mellitus with foot ulcer (principal); I87.313 Chronic venous hypertension (idiopathic) with ulcer of bilateral lower extremity; L97.522 Non-pressure chronic ulcer of other part of left foot with fat layer exposed; L89.891 Pressure ulcer of other site, stage 1; L97.512 Non-pressure chronic ulcer of other part of right foot with fat layer exposed; I89.0 Lymphedema, not elsewhere classified; I87.2 Venous insufficiency (chronic) (peripheral); I25.10 Atherosclerotic heart disease of native coronary artery without angina pectoris; Z87.891 Personal history of nicotine dependence
CPT/HCPCS: A6250

== ENCOUNTER 2018-12-26 10:05 | Outpatient (CLI) | payer MEDICARE | END 2018-12-26 10:06 | disposition home or self-care (01) | LOC: WOUND 10:05 | PROVIDERS: ATTEND Surgery | DX: E11.621 Type 2 diabetes mellitus with foot ulcer (principal); I87.313 Chronic venous hypertension (idiopathic) with ulcer of bilateral lower extremity; L97.522 Non-pressure chronic ulcer of other part of left foot with fat layer exposed; L89.891 Pressure ulcer of other site, stage 1; L97.512 Non-pressure chronic ulcer of other part of right foot with fat layer exposed; I89.0 Lymphedema, not elsewhere classified; I87.2 Venous insufficiency (chronic) (peripheral); I25.10 Atherosclerotic heart disease of native coronary artery without angina pectoris; Z87.891 Personal history of nicotine dependence ==

== ENCOUNTER 2018-12-31 09:31 | Outpatient (CLI) | payer MEDICARE | END 2018-12-31 09:32 | disposition home or self-care (01) | LOC: WOUND 09:31 | PROVIDERS: ATTEND Surgery | DX: E11.621 Type 2 diabetes mellitus with foot ulcer (principal); I87.313 Chronic venous hypertension (idiopathic) with ulcer of bilateral lower extremity; L97.522 Non-pressure chronic ulcer of other part of left foot with fat layer exposed; L89.891 Pressure ulcer of other site, stage 1; L97.512 Non-pressure chronic ulcer of other part of right foot with fat layer exposed; I89.0 Lymphedema, not elsewhere classified; I87.2 Venous insufficiency (chronic) (peripheral); I25.10 Atherosclerotic heart disease of native coronary artery without angina pectoris; Z87.891 Personal history of nicotine dependence | CPT/HCPCS: 87116 ==

== ENCOUNTER 2019-01-02 10:05 | Outpatient (CLI) | payer MEDICARE | END 2019-01-02 10:06 | disposition home or self-care (01) | LOC: WOUND 10:05 | PROVIDERS: ATTEND Surgery | DX: E11.621 Type 2 diabetes mellitus with foot ulcer (principal); I87.313 Chronic venous hypertension (idiopathic) with ulcer of bilateral lower extremity; L97.522 Non-pressure chronic ulcer of other part of left foot with fat layer exposed; L89.891 Pressure ulcer of other site, stage 1; L97.512 Non-pressure chronic ulcer of other part of right foot with fat layer exposed; I89.0 Lymphedema, not elsewhere classified; I87.2 Venous insufficiency (chronic) (peripheral); I25.10 Atherosclerotic heart disease of native coronary artery without angina pectoris; Z87.891 Personal history of nicotine dependence | CPT/HCPCS: 97597 ==

== ENCOUNTER 2019-01-16 09:50 | Outpatient (CLI) | payer MEDICARE | END 2019-01-16 09:51 | disposition home or self-care (01) | LOC: WOUND 09:50 | PROVIDERS: ATTEND Surgery | DX: E11.621 Type 2 diabetes mellitus with foot ulcer (principal); L89.893 Pressure ulcer of other site, stage 3; L97.512 Non-pressure chronic ulcer of other part of right foot with fat layer exposed; L97.522 Non-pressure chronic ulcer of other part of left foot with fat layer exposed; I87.313 Chronic venous hypertension (idiopathic) with ulcer of bilateral lower extremity; I89.0 Lymphedema, not elsewhere classified; I87.2 Venous insufficiency (chronic) (peripheral); I25.10 Atherosclerotic heart disease of native coronary artery without angina pectoris | CPT/HCPCS: 29581 ==

== ENCOUNTER 2019-01-23 09:44 | Outpatient (CLI) | payer MEDICARE | END 2019-01-23 09:45 | disposition home or self-care (01) | LOC: WOUND 09:44 | PROVIDERS: ATTEND Surgery | DX: E11.621 Type 2 diabetes mellitus with foot ulcer (principal); L89.893 Pressure ulcer of other site, stage 3; L97.512 Non-pressure chronic ulcer of other part of right foot with fat layer exposed; L97.522 Non-pressure chronic ulcer of other part of left foot with fat layer exposed; I87.313 Chronic venous hypertension (idiopathic) with ulcer of bilateral lower extremity; I89.0 Lymphedema, not elsewhere classified; I87.2 Venous insufficiency (chronic) (peripheral); I25.10 Atherosclerotic heart disease of native coronary artery without angina pectoris; Z87.891 Personal history of nicotine dependence | CPT/HCPCS: 29580 ==

== ENCOUNTER 2019-01-30 10:01 | Outpatient (CLI) | payer MEDICARE | END 2019-01-30 10:02 | disposition home or self-care (01) | LOC: WOUND 10:01 | PROVIDERS: ATTEND Surgery | DX: I87.313 Chronic venous hypertension (idiopathic) with ulcer of bilateral lower extremity (principal); E11.621 Type 2 diabetes mellitus with foot ulcer; L89.893 Pressure ulcer of other site, stage 3; L97.512 Non-pressure chronic ulcer of other part of right foot with fat layer exposed; L97.522 Non-pressure chronic ulcer of other part of left foot with fat layer exposed; I89.0 Lymphedema, not elsewhere classified; I87.2 Venous insufficiency (chronic) (peripheral); I25.10 Atherosclerotic heart disease of native coronary artery without angina pectoris; Z87.891 Personal history of nicotine dependence | CPT/HCPCS: 29580 ==

== ENCOUNTER 2019-02-06 10:06 | Outpatient (CLI) | payer MEDICARE | END 2019-02-06 10:07 | disposition home or self-care (01) | LOC: WOUND 10:06 | PROVIDERS: ATTEND Surgery | DX: I87.313 Chronic venous hypertension (idiopathic) with ulcer of bilateral lower extremity (principal); E11.621 Type 2 diabetes mellitus with foot ulcer; L89.893 Pressure ulcer of other site, stage 3; L97.512 Non-pressure chronic ulcer of other part of right foot with fat layer exposed; L97.522 Non-pressure chronic ulcer of other part of left foot with fat layer exposed; I89.0 Lymphedema, not elsewhere classified; I87.2 Venous insufficiency (chronic) (peripheral); I25.10 Atherosclerotic heart disease of native coronary artery without angina pectoris; Z87.891 Personal history of nicotine dependence ==

== ENCOUNTER 2019-02-13 09:34 | Outpatient (CLI) | payer MEDICARE ==
[2019-02-13] MEDS ORDERED: SILVER NITRATE APPLICATOR 1 EA TP ONE (10:30)
[2019-02-13] MEDS ORDERED: LIDOCAINE (4%) 40 MG/ML TOPICAL SOLN 50 ML BOTTLE TP ONE (10:30)
== END 2019-02-13 09:35 | disposition home or self-care (01) ==
LOC: WOUND 09:34
PROVIDERS: ATTEND Surgery
DX: I87.313 Chronic venous hypertension (idiopathic) with ulcer of bilateral lower extremity (principal); E11.621 Type 2 diabetes mellitus with foot ulcer; L89.893 Pressure ulcer of other site, stage 3; L97.512 Non-pressure chronic ulcer of other part of right foot with fat layer exposed; L97.522 Non-pressure chronic ulcer of other part of left foot with fat layer exposed; I89.0 Lymphedema, not elsewhere classified; I87.2 Venous insufficiency (chronic) (peripheral); I25.10 Atherosclerotic heart disease of native coronary artery without angina pectoris; Z87.891 Personal history of nicotine dependence
CPT/HCPCS: 29580

== ENCOUNTER 2019-02-18 11:36 | Inpatient (IN) | payer MEDICARE ==
[2019-02-18] MEDS ORDERED: SODIUM CHLORIDE 0.9% 500 ML 500 ML IV ONE ×2 (12:02→22:39)
[2019-02-18] MEDS ORDERED: ACETAMINOPHEN 325 MG TAB PO ONE (12:09)
[2019-02-18] MEDS ORDERED: IPRATROPIUM/ALBUTEROL SULFATE 3 ML AMPUL.NEB IH ONE ×2 (12:14→13:06)
--- NOTE | 2019-02-18 12:20 | Emergency Department Report ---
ED Shortness of Breath HPI - General Chief Complaint: Dyspnea/Respdistress Stated Complaint: SOB Time Seen by Provider: 02/18/19 11:46 Source: EMS Mode of arrival: Ambulatory Limitations: Physical Limitation - History of Present Illness Initial Comments: 83-year-old -Japanese male patient with history of diabetes, hypertension, and peripheral vascular disease presents via EMS complaints of sudden worsening of shortness of breath and chills this morning. EMS notes A. fib on EKGpatient denies history of this. He does follow with Dr. Blount, cardiology, at the [facility]. Patient states he was recently diagnosed with CHF. He denies any cough or sputum production or worsening swelling in his legs. MD Complaint: shortness of breath -: Sudden Improves With: oxygen Known History Of: congestive heart failure, diabetes - Related Data Allergies Allergy/AdvReac Type Severity Reaction Status Date / Time morphine AdvReac Vomiting Verified 10/31/17 14:15 ED Review of Systems ROS: Stated complaint: SOB Other details as noted in HPI Constitutional: chills, malaise Eyes: denies: vision change ENT: denies: throat pain Respiratory: shortness of breath, SOB with exertion Cardiovascular: denies: chest pain, palpitations Gastrointestinal: denies: abdominal pain, nausea, vomiting Skin: denies: rash, lesions Neurological: denies: headache, numbness, paresthesias Hematological/Lymphatic: denies: easy bleeding, easy bruising ED Past Medical Hx - Past Medical History Previous Medical History?: Yes Hx Hypertension: Yes Hx Diabetes: Yes Additional medical history: Chronic venous insufficiency both lower extremities, triple bypass - Surgical History Past Surgical History?: No Hx Open Heart Surgery: Yes - Social History Smoking Status: Unknown if ever smoked Substance Use Type: None ED Physical Exam - General Limitations: Physical Limitation General appearance: alert, in no apparent distress - Head Head exam: Present: atraumatic, normocephalic - Eye Eye exam: Present: normal appearance. Absent: scleral icterus - ENT ENT exam: Present: normal orophraynx - Neck Neck exam: Present: normal inspection, full ROM. Absent: meningismus, lymphadenopathy - Respiratory Respiratory exam: Present: respiratory distress, rales, rhonchi. Absent: chest wall tenderness - Cardiovascular Cardiovascular Exam: Present: tachycardia, irregular rhythm - GI/Abdominal GI/Abdominal exam: Present: soft. Absent: distended, tenderness, guarding, rebound, rigid, normal bowel sounds - Rectal Rectal exam: Present: deferred - Extremities Exam Extremities exam: Present: other (significant bilateral lower extremity pitting edema noted. No tenderness to palpation or erythema noted) - Back Exam Back exam: Absent: CVA tenderness (R), CVA tenderness (L) - Neurological Exam Neurological exam: Present: alert, oriented X3 - Psychiatric Psychiatric exam: Present: normal affect, normal mood - Skin Skin exam: Present: warm, dry, intact, normal color. Absent: rash ED Course Vital Signs 02/18/19 02/18/19 02/18/19 11:42 11:58 12:00 Temperature 103 F H Pulse Rate 119 H 118 H 112 H Pulse Rate [ Anterior Bilateral Throughout] Respiratory 38 H 24 37 H Rate Respiratory Rate [Anterior Bilateral Throughout] Blood Pressure 194/75 194/75 O2 Sat by Pulse 100 99 100 Oximetry 02/18/19 02/18/19 02/18/19 12:31 13:01 13:03 Temperature Pulse Rate 118 H 115 H 28 L Pulse Rate [ Anterior Bilateral Throughout] Respiratory 17 27 H 24 Rate Respiratory Rate [Anterior Bilateral Throughout] Blood Pressure 167/82 177/84 O2 Sat by Pulse 99 100 99 Oximetry 02/18/19 02/18/19 02/18/19 13:07 13:29 15:15 Temperature Pulse Rate 100 H 27 L Pulse Rate [ 105 H Anterior Bilateral Throughout] Respiratory 26 H 26 H Rate Respiratory 18 Rate [Anterior Bilateral Throughout] Blood Pressure 159/67 134/63 O2 Sat by Pulse 100 100 Oximetry 02/18/19 15:18 Temperature Pulse Rate Pulse Rate [ Anterior Bilateral Throughout] Respiratory Rate Respiratory Rate [Anterior Bilateral Throughout] Blood Pressure O2 Sat by Pulse 95 Oximetry - Reevaluation(s) Reevaluation #1: 02/18/19 12:57 Pt satting 98% on room air, however given respiratory distress pt placed on BIPAP ED Medical Decision Making - Lab Data Result diagrams: 02/18/19 14:12 02/18/19 12:02 Lab Results 02/18/19 02/18/19 02/18/19 Range/Units 12:02 12:02 12:03 WBC (4.5-11.0) K/mm3 RBC (3.65-5.03) M/mm3 Hgb (11.8-15.2) gm/dl Hct (35.5-45.6) % MCV (84-94) fl MCH (28-32) pg MCHC (32-34) % RDW (13.2-15.2) % Plt Count (140-440) K/mm3 Lymph % (Auto) (13.4-35.0) % [place] % (Auto) (0.0-7.3) % Eos % (Auto) (0.0-4.3) % Baso % (Auto) (0.0-1.8) % Lymph # (1.2-5.4) K/mm3 [place] # (0.0-0.8) K/mm3 Eos # (0.0-0.4) K/mm3 Baso # (0.0-0.1) K/mm3 Seg Neutrophils % (40.0-70.0) % Seg Neutrophils # (1.8-7.7) K/mm3 PT (12.2-14.9) Sec. INR (0.87-1.13) APTT (24.2-36.6) Sec. D-Dimer (0-234) ng/mlDDU POC ABG pH (7.35-7.45) POC ABG pCO2 (35-45) POC ABG pO2 (80-105) POC ABG HCO3 (22-26 mml/L) POC ABG Total CO2 (23-27mmol/L) POC ABG O2 Sat POC ABG Base Excess ((-2) - (+3)mmol/L) VBG pH 7.370 (7.320-7.420) FiO2 % Sodium 140 (137-145) mmol/L Potassium 4.4 (3.6-5.0) mmol/L Chloride 99.0 (98-107) mmol/L Carbon Dioxide 26 (22-30) mmol/L Anion Gap 19 mmol/L BUN 18 (9-20) mg/dL Creatinine 0.8 (0.8-1.5) mg/dL Estimated GFR > 60 ml/min BUN/Creatinine Ratio 23 % Glucose 230 H (75-100) mg/dL POC Glucose (70-105) Lactic Acid 2.20 H* (0.7-2.0) mmol/L Calcium 9.0 (8.4-10.2) mg/dL Total Bilirubin 0.40 (0.1-1.2) mg/dL Direct Bilirubin < 0.2 (0-0.2) mg/dL Indirect Bilirubin 0.2 mg/dL AST 18 (5-40) units/L ALT 17 (7-56) units/L Alkaline Phosphatase 125 (35-129) units/L Troponin T 0.013 (0.00-0.029) ng/mL NT-Pro-B Natriuret Pep 540.1 (0-900) pg/mL Total Protein 8.4 H (6.3-8.2) g/dL Albumin 4.1 (3.9-5) g/dL Albumin/Globulin Ratio 1.0 % 02/18/19 02/18/19 02/18/19 Range/Units 13:33 14:12 14:20 WBC 14.3 H (4.5-11.0) K/mm3 RBC 4.21 (3.65-5.03) M/mm3 Hgb 12.1 (11.8-15.2) gm/dl Hct 36.7 (35.5-45.6) % MCV 87 (84-94) fl MCH 29 (28-32) pg MCHC 33 (32-34) % RDW 15.6 H (13.2-15.2) % Plt Count 206 (140-440) K/mm3 Lymph % (Auto) 5.5 L (13.4-35.0) % [place] % (Auto) 5.4 (0.0-7.3) % Eos % (Auto) 0.3 (0.0-4.3) % Baso % (Auto) 0.5 (0.0-1.8) % Lymph # 0.8 L (1.2-5.4) K/mm3 [place] # 0.8 (0.0-0.8) K/mm3 Eos # 0.0 (0.0-0.4) K/mm3 Baso # 0.1 (0.0-0.1) K/mm3 Seg Neutrophils % 88.3 H (40.0-70.0) % Seg Neutrophils # 12.6 H (1.8-7.7) K/mm3 PT (12.2-14.9) Sec. INR (0.87-1.13) APTT (24.2-36.6) Sec. D-Dimer (0-234) ng/mlDDU POC ABG pH (7.35-7.45) POC ABG pCO2 (35-45) POC ABG pO2 (80-105) POC ABG HCO3 (22-26 mml/L) POC ABG Total CO2 (23-27mmol/L) POC ABG O2 Sat POC ABG Base Excess ((-2) - (+3)mmol/L) VBG pH (7.320-7.420) FiO2 % Sodium (137-145) mmol/L Potassium (3.6-5.0) mmol/L Chloride (98-107) mmol/L Carbon Dioxide (22-30) mmol/L Anion Gap mmol/L BUN (9-20) mg/dL Creatinine (0.8-1.5) mg/dL Estimated GFR ml/min BUN/Creatinine Ratio % Glucose (75-100) mg/dL POC Glucose 204 H (70-105) Lactic Acid 2.00 (0.7-2.0) mmol/L Calcium (8.4-10.2) mg/dL Total Bilirubin (0.1-1.2) mg/dL Direct Bilirubin (0-0.2) mg/dL Indirect Bilirubin mg/dL AST (5-40) units/L ALT (7-56) units/L Alkaline Phosphatase (35-129) units/L Troponin T (0.00-0.029) ng/mL NT-Pro-B Natriuret Pep (0-900) pg/mL Total Protein (6.3-8.2) g/dL Albumin (3.9-5) g/dL Albumin/Globulin Ratio % 02/18/19 02/18/19 02/18/19 Range/Units 14:38 15:15 15:41 WBC (4.5-11.0) K/mm3 RBC (3.65-5.03) M/mm3 Hgb (11.8-15.2) gm/dl Hct (35.5-45.6) % MCV (84-94) fl MCH (28-32) pg MCHC (32-34) % RDW (13.2-15.2) % Plt Count (140-440) K/mm3 Lymph % (Auto) (13.4-35.0) % [place] % (Auto) (0.0-7.3) % Eos % (Auto) (0.0-4.3) % Baso % (Auto) (0.0-1.8) % Lymph # (1.2-5.4) K/mm3 [place] # (0.0-0.8) K/mm3 Eos # (0.0-0.4) K/mm3 Baso # (0.0-0.1) K/mm3 Seg Neutrophils % (40.0-70.0) % Seg Neutrophils # (1.8-7.7) K/mm3 PT (12.2-14.9) Sec. INR (0.87-1.13) APTT (24.2-36.6) Sec. D-Dimer (0-234) ng/mlDDU POC ABG pH 7.424 (7.35-7.45) POC ABG pCO2 36.7 (35-45) POC ABG pO2 132 H (80-105) POC ABG HCO3 24.0 (22-26 mml/L) POC ABG Total CO2 25 (23-27mmol/L) POC ABG O2 Sat 99 POC ABG Base Excess 0 ((-2) - (+3)mmol/L) VBG pH (7.320-7.420) FiO2 35 % Sodium (137-145) mmol/L Potassium (3.6-5.0) mmol/L Chloride (98-107) mmol/L Carbon Dioxide (22-30) mmol/L Anion Gap mmol/L BUN (9-20) mg/dL Creatinine (0.8-1.5) mg/dL Estimated GFR ml/min BUN/Creatinine Ratio % Glucose (75-100) mg/dL POC Glucose (70-105) Lactic Acid 1.90 1.80 (0.7-2.0) mmol/L Calcium (8.4-10.2) mg/dL Total Bilirubin (0.1-1.2) mg/dL Direct Bilirubin (0-0.2) mg/dL Indirect Bilirubin mg/dL AST (5-40) units/L ALT (7-56) units/L Alkaline Phosphatase (35-129) units/L Troponin T (0.00-0.029) ng/mL NT-Pro-B Natriuret Pep (0-900) pg/mL Total Protein (6.3-8.2) g/dL Albumin (3.9-5) g/dL Albumin/Globulin Ratio % 02/18/19 Range/Units Unknown WBC (4.5-11.0) K/mm3 RBC (3.65-5.03) M/mm3 Hgb (11.8-15.2) gm/dl Hct (35.5-45.6) % MCV (84-94) fl MCH (28-32) pg MCHC (32-34) % RDW (13.2-15.2) % Plt Count (140-440) K/mm3 Lymph % (Auto) (13.4-35.0) % [place] % (Auto) (0.0-7.3) % Eos % (Auto) (0.0-4.3) % Baso % (Auto) (0.0-1.8) % Lymph # (1.2-5.4) K/mm3 [place] # (0.0-0.8) K/mm3 Eos # (0.0-0.4) K/mm3 Baso # (0.0-0.1) K/mm3 Seg Neutrophils % (40.0-70.0) % Seg Neutrophils # (1.8-7.7) K/mm3 PT 14.1 (12.2-14.9) Sec. INR 1.10 (0.87-1.13) APTT 29.7 (24.2-36.6) Sec. D-Dimer 2356.30 H (0-234) ng/mlDDU POC ABG pH (7.35-7.45) POC ABG pCO2 (35-45) POC ABG pO2 (80-105) POC ABG HCO3 (22-26 mml/L) POC ABG Total CO2 (23-27mmol/L) POC ABG O2 Sat POC ABG Base Excess ((-2) - (+3)mmol/L) VBG pH (7.320-7.420) FiO2 % Sodium (137-145) mmol/L Potassium (3.6-5.0) mmol/L Chloride (98-107) mmol/L Carbon Dioxide (22-30) mmol/L Anion Gap mmol/L BUN (9-20) mg/dL Creatinine (0.8-1.5) mg/dL Estimated GFR ml/min BUN/Creatinine Ratio % Glucose (75-100) mg/dL POC Glucose (70-105) Lactic Acid (0.7-2.0) mmol/L Calcium (8.4-10.2) mg/dL Total Bilirubin (0.1-1.2) mg/dL Direct Bilirubin (0-0.2) mg/dL Indirect Bilirubin mg/dL AST (5-40) units/L ALT (7-56) units/L Alkaline Phosphatase (35-129) units/L Troponin T (0.00-0.029) ng/mL NT-Pro-B Natriuret Pep (0-900) pg/mL Total Protein (6.3-8.2) g/dL Albumin (3.9-5) g/dL Albumin/Globulin Ratio % - EKG Data Rate: tachycardia (afib noted without RVR) - Radiology Data CHEST 1 VIEW INDICATION: SOB, FEVER possible Sepsis. COMPARISON: None FINDINGS: Support devices: None. Heart: Mild cardiomegaly. Previous CABG or thoracic surgery changes are noted. Lungs/Pleura: Mild pulmonary venous congestion. No acute air space disease, interstitial disease or pleural abnormality. Additional findings: None. IMPRESSION: Mild cardiomegaly and pulmonary venous congestion. - Medical Decision Making 83-year-old -[place] male patient here today with with history of diabetes, hypertension and recent diagnosis of heart failure presents with complaints of acute on chronic shortness of breath. Patient presented with a fever of 103 and new onset A. fib with rate control. Oxygen saturation was 98% on room air, however due to patient's high respiratory rate BiPAP was initiated. Patient states his shortness of breath has resolved with BiPAP. BNP is >2300. D-dimer also elevated > 2500. Chest x-ray shows mild pulmonary venous congestion. White count at 14.3. Initial lactic acid was 2.2 and last reading was 1.8. Temperature is currently 97.9. Unable to obtain CT angiogram of chest due to lack of IV access. VQ scan still pending. Patient is stable at this time. Discussed patient with Dr. Zurita to be admitted to hospital medicine. Critical care attestation.: If time is entered above; I have spent that time in minutes in the direct care of this critically ill patient, excluding procedure time. ED Disposition Clinical Impression: New onset a-fib, Elevated lactic acid level CHF exacerbation Qualifiers: Heart failure type: unspecified Qualified Code(s): I50.9 - Heart failure, unspecified Disposition: OP ADMIT IP TO THIS HOSP Is pt being admited?: Yes Condition: Stable Referrals: PRIMARY CARE, [Primary Care Provider] - 3-5 Days
--- NOTE | 2019-02-18 12:36 | XRay Report ---
CHEST 1 VIEW INDICATION: SOB, FEVER possible Sepsis. COMPARISON: None FINDINGS: Support devices: None. Heart: Mild cardiomegaly. Previous CABG or thoracic surgery changes are noted. Lungs/Pleura: Mild pulmonary venous congestion. No acute air space disease, interstitial disease or p leural abnormality. Additional findings: None. IMPRESSION: Mild cardiomegaly and pulmonary venous congestion. Signer Name: Simone Stanton Jr, MD Signed: 02/18/2019 12:32 PM Workstation Name: [id number]
[2019-02-18 13:12] LABS: Alanine Aminotransferase 17 units/L (7-56); Albumin 4.1 g/dL (3.9-5); BUN/Creatinine Ratio 23; Blood Urea Nitrogen 18 mg/dL (9-20); Hemolysis Index 3
[2019-02-18 13:14] LABS: Bilirubin,Direct < 0.2 mg/dL (0-0.2)
[2019-02-18 13:21] LABS: INR 1.1 (0.87-1.13)
[2019-02-18 13:22] LABS: Partial Thromboplastin Time 29.7 Sec. (24.2-36.6)
[2019-02-18 14:26] LABS: Basophils # (Auto) 0.1 K/mm3 (0.0-0.1); Basophils % (Auto) 0.5 % (0.0-1.8); Eosinophils % (Auto) 0.3 % (0.0-4.3); Hematocrit 36.7 % (35.5-45.6); Hemoglobin 12.1 gm/dl (11.8-15.2); Lymphocytes # (Auto) 0.8 K/mm3 (1.2-5.4); Lymphocytes % (Auto) 5.5 % (13.4-35.0); Mean Corpuscular HGB Conc 33 % (32-34); Mean Corpuscular Volume 87 fl (84-94); Monocytes # (Auto) 0.8 K/mm3 (0.0-0.8); Monocytes % (Auto) 5.4 % (0.0-7.3); Platelet Count 206 K/mm3 (140-440); Red Blood Count 4.21 M/mm3 (3.65-5.03); Red Cell Distribution Width 15.6 % (13.2-15.2)
--- NOTE | 2019-02-18 17:36 | History and Physical Report ---
History of Present Illness Chief complaint: I cant breathe History of present illness: 83 YO Male with DM, HTN, PVD, CAD S/P CABG presents to ED for evaluation. Pt states that she has experienced shortness of breath over the past 1 day with progressively worsening symptoms over the same time frame. Pt acknowledges Or thopnea/PND, Decreased exercise tolerance, leg edema, dypsnea on exertion, dypsnea at rest. EMS notified, and upon arrival the patient was found to be in distress and transported to [facility]. Pt seen and evaluated in ED and found to have symptoms consistent with CHF Decompensation, Sepsis, Pneumonia, as well as New Onset Atrial Fibrillation. Pt denies fever, chills, palpitatons, NVD, Trauma, BRBPR, skin rash or recent ill contacts. Cardiology team consulted in ED. Pt admitted to telemetry and initiated on Pneumonia and Sepsis protocols. No prior admission for review. All listed mediation reconciled at time of admission. Past History Past Medical History: other (see hpi) Past Surgical History: CABG Social history: . denies: smoking, alcohol abuse, prescription drug abuse Family history: diabetes, hypertension Medications and Allergies Allergies Allergy/AdvReac Type Severity Reaction Status Date / Time morphine AdvReac Vomiting Verified 10/31/17 14:15 Active Meds: Active Medications Levofloxacin/Dextrose (Levaquin 750mg/150ml) 750 mg in 150 mls @ 100 mls/hr IV Q24HR [facility]; Protocol Last Admin: 02/18/19 15:54 Dose: 100 mls/hr Documented by: Review of Systems Constitutional: no weight loss, no weight gain, no fever, no chills Ears, nose, mouth and throat: no ear pain, no ear discharge, no tinnitis, no decreased hearing, no nose pain Cardiovascular: orthopnea, shortness of breath, dyspnea on exertion, paroxysmal nocturnal dyspnea, leg edema, decreased exercise tolerance, no rapid/irregular heart beat Respiratory: no cough, no cough with sputum, no excessive sputum, no hemoptysis Gastrointestinal: no nausea, no vomiting, no diarrhea, no constipation Genitourinary Male: no hematuria, no flank pain, no discharge, no urinary frequency, no urinary hesitancy Rectal: no pain, no incontinence Musculoskeletal: no shooting arm pain, no arm numbness/tingling, no leg numbness/tingling Integumentary: no rash, no pruritis, no redness, no sores, no wounds Neurological: no head injury, no transient paralysis, no weakness, no parathesias, no numbness, no seizures, no syncope Psychiatric: no anxiety, no memory loss, no change in sleep habits, no insomnia, no hypersomnia, no change in appetite, no change in libido Endocrine: no cold intolerance, no heat intolerance, no polyphagia, no polyuria, no nocturia, no flushing Hematologic/Lymphatic: no easy bruising, no lymphedema Allergic/Immunologic: no urticaria, no allergic rhinitis, no persistent infections, no angioedema Exam - Constitutional Vitals: Temp Pulse Resp BP Pulse Ox 103 F H 27 L 26 H 134/63 95 02/18/19 11:42 02/18/19 15:15 02/18/19 15:15 02/18/19 15:15 02/18/19 15:18 General appearance: Present: mild distress, obese - EENT Eyes: Present: PERRL ENT: hearing intact, clear oral mucosa - Neck Neck: Present: supple, normal ROM - Respiratory Respiratory effort: labored, accessory muscle use Respiratory: bilateral: diminished, rhonchi - Cardiovascular Rhythm: irregularly irregular Heart Sounds: Present: S1 & S2. Absent: rub, click - Extremities Extremities: pulses symmetrical Extremity abnormal: edema Peripheral Pulses: within normal limits - Abdominal General gastrointestinal: Present: soft, non-tender, non-distended, normal bowel sounds Male genitourinary: Present: normal - Integumentary Integumentary: Present: clear, warm, dry - Musculoskeletal Musculoskeletal: generalized weakness - Psychiatric Psychiatric: appropriate mood/affect, intact judgment & insight - Neurologic Neurologic: CNII-XII intact, moves all extremities Results - Labs CBC & Chem 7: 02/18/19 14:12 02/18/19 12:02 Labs: Abnormal lab results 02/18/19 02/18/19 02/18/19 Range/Units 12:02 12:03 13:33 WBC (4.5-11.0) K/mm3 RDW (13.2-15.2) % Lymph % (Auto) (13.4-35.0) % Lymph # (1.2-5.4) K/mm3 Seg Neutrophils % (40.0-70.0) % Seg Neutrophils # (1.8-7.7) K/mm3 D-Dimer (0-234) ng/mlDDU POC ABG pO2 (80-105) Glucose 230 H (75-100) mg/dL POC Glucose 204 H (70-105) Lactic Acid 2.20 H* (0.7-2.0) mmol/L Total Protein 8.4 H (6.3-8.2) g/dL 02/18/19 02/18/19 02/18/19 Range/Units 14:12 15:15 Unknown WBC 14.3 H (4.5-11.0) K/mm3 RDW 15.6 H (13.2-15.2) % Lymph % (Auto) 5.5 L (13.4-35.0) % Lymph # 0.8 L (1.2-5.4) K/mm3 Seg Neutrophils % 88.3 H (40.0-70.0) % Seg Neutrophils # 12.6 H (1.8-7.7) K/mm3 D-Dimer 2356.30 H (0-234) ng/mlDDU POC ABG pO2 132 H (80-105) Glucose (75-100) mg/dL POC Glucose (70-105) Lactic Acid (0.7-2.0) mmol/L Total Protein (6.3-8.2) g/dL Assessment and Plan - Patient Problems (1) Sepsis Current Visit: Yes Status: Acute Plan to address problem: Sepsis protocol: IV antibiotic therapy, IVF resuscitation therapy as tolerated, CBC, CMP, Urinalysis, chest x ray, blood cultures, serial lactic acid, (2) CHF (congestive heart failure) Current Visit: Yes Status: Acute Qualifiers: Heart failure type: systolic Heart failure chronicity: acute Qualified Code(s): I50.21 - Acute systolic (congestive) heart failure Plan to address problem: Admit to telemetry: Echo, strict I/O, daily weight, monitor uop q shift, cardiology consulted in ED, diuresis, chest x ray, afterload reduction, supplemental oxygen, bnp, thyroid panel, magnesium level. (3) Pneumonia Current Visit: Yes Status: Acute Qualifiers: Lung location: unspecified part of lung Plan to address problem: Pneumonia protocol: IV antibiotic therapy, supplemental oxygen, nebulizer therapy, pulse oximetry, chest x ray, cbc, cmp, (4) Diabetes Current Visit: Yes Status: Acute Plan to address problem: ADA diet, insulin, accu check (5) New onset a-fib Current Visit: Yes Status: Acute Plan to address problem: Therapeutic anticoagulation with eliquis, rate control with cardizem. (6) Obesity hypoventilation syndrome Current Visit: Yes Status: Acute Plan to address problem: Supplemental oxygen, nebulizer therapy, NIPPV as clinically indicated, pulse oximetry, (7) DVT prophylaxis Current Visit: Yes Status: Acute Plan to address problem: scd to BLE while in bed, therapeutic anticoagulation.
[2019-02-18] MEDS ORDERED: ONDANSETRON 4 MG/2 ML INJ IV PRN (17:48)
[2019-02-18] MEDS ORDERED: SODIUM CHLORIDE 0.9% 1000 ML IV SOLN IV ONE (17:52)
[2019-02-18 17:59] LABS: Bilirubin,Urine NEG (Negative); Blood,Urine SM (Negative); Color,Urine Yellow (Yellow)
[2019-02-18 18:00] LABS: Protein,Urine >500 mg/dL (Negative)
[2019-02-18 18:51] LABS: Free T4 (Free Thyroxine) 1.3 ng/dL (0.76-1.46)
[2019-02-18] MEDS: FUROSEMIDE 20 MG/2 ML INJ IV SCH (19:23)
[2019-02-18] MEDS ORDERED: FUROSEMIDE 20 MG TAB ONE (19:27)
[2019-02-18] MEDS: ALBUTEROL 2.5 MG/3 ML NEBU IH PRN (20:30)
--- NOTE | 2019-02-18 20:40 | Cat Scan Report ---
CT ANGIOGRAPHY OF THE CHEST WITH INTRAVENOUS CONTRAST AND MULTIPLANAR MIP RECONSTRUCTIONS INDICATION / CLINICAL INFORMATION: Dyspnea. TECHNIQUE: Axial CT images were obtained after injection of 100 cc Omnipaque 350 IV contrast using CTA protocol. 3 plane MIP / 3D reconstructions were produced. All CT scans at this location are performed using CT dose reduction for ALARA by means of automated exposure control. COMPARISON: None available. FINDINGS: There is motion artifact especially in the lower lung zones. There is adequate opacification of the p ulmonary arterial system bilaterally without definite intraluminal filling defect to suggest acute PT E. There are atherosclerotic calcifications involving the thoracic aorta without aneurysm or dissecti on. There is moderately severe coronary artery calcification. The tracheobronchial tree is normal. There is mild bibasilar dependent atelectasis, greater on the le ft. Is no evidence of effusion or adenopathy. There is a small hiatal hernia. The visualized upper abdomen is otherwise unremarkable. There is mode rate bilateral gynecomastia. No acute osseous abnormality is seen. There is a median sternotomy. IMPRESSION: 1. Suboptimal exam without definite evidence of acute PTE. 2. Moderately severe coronary artery calcification. 3. Moderate bilateral gynecomastia. Signer Name: Larry Mayberry MD Signed: 02/18/2019 8:35 PM Workstation Name: [id number]
[2019-02-18] MEDS: ACETAMINOPHEN 325 MG TAB PO PRN (22:20)
[2019-02-18] MEDS: APIXABAN 2.5 MG TAB PO SCH ×2 (22:21)
[2019-02-18] MEDS ORDERED: DEXTROSE 50% IN WATER (25GM) 50 ML SYRINGE IV PRN (22:27)
[2019-02-18 22:49] LABS: Free T4 (Free Thyroxine) 1.3 ng/dL (0.76-1.46)
[2019-02-19] MEDS: FUROSEMIDE 20 MG/2 ML INJ IV SCH (05:23)
[2019-02-19] MEDS: ACETAMINOPHEN 325 MG TAB PO PRN (05:23)
[2019-02-19 06:05] LABS: Basophils % (Auto) 0.3 % (0.0-1.8); Hematocrit 34.5 % (35.5-45.6); Hemoglobin 11.2 gm/dl (11.8-15.2); Lymphocytes # (Auto) 0.8 K/mm3 (1.2-5.4); Lymphocytes % (Auto) 5.2 % (13.4-35.0); Mean Corpuscular HGB Conc 33 % (32-34); Mean Corpuscular Volume 87 fl (84-94); Monocytes # (Auto) 0.7 K/mm3 (0.0-0.8); Monocytes % (Auto) 4.7 % (0.0-7.3); Platelet Count 170 K/mm3 (140-440); Red Blood Count 3.96 M/mm3 (3.65-5.03); Red Cell Distribution Width 15.5 % (13.2-15.2)
[2019-02-19 06:17] LABS: Alanine Aminotransferase 16 units/L (7-56); Albumin 3.6 g/dL (3.9-5); BUN/Creatinine Ratio 21; Blood Urea Nitrogen 19 mg/dL (9-20); Calcium 8.3 mg/dL (8.4-10.2); Hemolysis Index 3
--- NOTE | 2019-02-19 09:21 | Nuclear Medicine Report ---
NUCLEAR MEDICINE PERFUSION ONLY LUNG SCAN HISTORY: Shortness of breath, elevated d-dimer COMPARISON: 02/18/2019 chest radiograph. TECHNIQUE: Tc-99m-MAA was injected. Perfusion images were acquired in multiple projections. RADIOPHARMACEUTICAL: 5.5 mCi of Tc-99m-MAA injected FINDINGS: PERFUSION: No significant segmental or non-segmental defect. Additional Findings: None. IMPRESSION: 1. Low probability for pulmonary embolism. Signer Name: Simone Stanton Jr, MD Signed: 02/19/2019 9:16 AM Workstation Name: [id number]
--- NOTE | 2019-02-19 10:11 | Consultation ---
History of Present Illness Consult date: 02/19/19 Requesting physician: PRECIOUS SHEEHAN Consult reason: congestive heart failure History of present illness: The pt is an 83 YO male with a past medical history of CAD s/p CABG, HF with "weak heart", atrial fibrillation (was anticoagulated on Eliquis which [facility]), HTN, DM, PVD. He is followed by [facility]. He presented with c/o progressively worsening SOB and chills for the past 3 days. He denies any chest pain, cough, palpitations, n/v, diaphoresis, dizziness or syncope. Past History Past Medical History: atrial fib, CAD, diabetes, heart failure, hypertension Past Surgical History: CABG Social history: . denies: smoking, alcohol abuse, prescription drug abuse Family history: diabetes, hypertension Medications and Allergies Allergies Allergy/AdvReac Type Severity Reaction Status Date / Time morphine AdvReac Vomiting Verified 10/31/17 14:15 Active Meds: Active Medications Acetaminophen (Tylenol) 650 mg PO Q4H PRN PRN Reason: Pain MILD(1-3)/Fever >100.5/LARSON Last Admin: 02/19/19 05:23 Dose: 650 mg Documented by: Albuterol (Proventil) 2.5 mg IH Q4HRT PRN PRN Reason: Shortness Of Breath Last Admin: 02/18/19 20:30 Dose: 2.5 mg Documented by: Apixaban (Eliquis) 2.5 mg PO Q12HR [facility]; Protocol Last Admin: 02/18/19 22:21 Dose: 2.5 mg Documented by: Dextrose (D50w (25gm) Syringe) 0 ml IV Q30MIN PRN PRN Reason: Hypoglycemia Diltiazem HCl (Cardizem) 30 mg PO Q6HR [facility] Furosemide (Lasix) 20 mg IV BID@0600,1800 [facility] Last Admin: 02/19/19 05:23 Dose: 20 mg Documented by: Levofloxacin/Dextrose (Levaquin 750mg/150ml) 750 mg in 150 mls @ 100 mls/hr IV Q24HR [facility]; Protocol Last Admin: 02/18/19 15:54 Dose: 100 mls/hr Documented by: Insulin Human Lispro (Humalog) 0 unit SUB-Q ACHS [facility]; Protocol Ondansetron HCl (Zofran) 4 mg IV Q8H PRN PRN Reason: Nausea And Vomiting Sodium Chloride (Sodium Chloride Flush Syringe 10 Ml) 10 ml IV BID [facility] Last Admin: 02/18/19 22:21 Dose: 10 ml Documented by: Sodium Chloride (Sodium Chloride Flush Syringe 10 Ml) 10 ml IV PRN PRN PRN Reason: LINE FLUSH Review of Systems Constitutional: chills, no weight loss, no weight gain, no sweats Ears, nose, mouth and throat: no ear pain, no nose pain, no sinus pressure, no sinus pain Cardiovascular: orthopnea, shortness of breath, dyspnea on exertion, no chest p ain, no palpitations, no rapid/irregular heart beat, no edema, no syncope, no lightheadedness Respiratory: shortness of breath, dyspnea on exertion, no cough, no congestion, no wheezing, no pain on inspiration Gastrointestinal: no abdominal pain, no nausea, no vomiting, no diarrhea, no constipation, no change in bowel habits Genitourinary Male: no dysuria, no hematuria, no flank pain, no discharge, no urinary frequency, no urinary hesitancy Musculoskeletal: no neck stiffness, no neck pain, no shooting arm pain, no arm numbness/tingling, no low back pain, no shooting leg pain Integumentary: no rash, no pruritis, no redness, no sores, no wounds Neurological: no head injury, no paralysis, no weakness, no parathesias, no numbness, no tingling, no seizures, no syncope Psychiatric: no anxiety Endocrine: no cold intolerance, no heat intolerance Hematologic/Lymphatic: no easy bruising, no easy bleeding Allergic/Immunologic: no urticaria, no wheezing Physical Examination Vital Signs Temp Pulse Resp BP Pulse Ox 103 F H 119 H 38 H 194/75 100 02/18/19 11:42 02/18/19 11:42 02/18/19 11:42 02/18/19 11:42 02/18/19 11:42 General appearance: no acute distress HEENT: Positive: PERRL, Normocephaly, Mucus Membranes Moist Neck: Positive: neck supple, trachea midline Cardiac: Positive: irregularly irregular, S1/S2 Lungs: Positive: Decreased Breath Sounds, Rhonchi, Oxygen Neuro: Positive: Grossly Intact Abdomen: Negative: Tender Skin: Negative: Rash Musculoskeletal: No Pain Extremities: Absent: edema Results 02/19/19 05:10 02/19/19 05:10 Cardiac Enzymes 02/18/19 02/19/19 Range/Units 12:02 05:10 AST 18 21 (5-40) units/L Coagulation 02/18/19 Range/Units Unknown PT 14.1 (12.2-14.9) Sec. INR 1.10 (0.87-1.13) APTT 29.7 (24.2-36.6) Sec. CBC 02/18/19 02/19/19 Range/Units 14:12 05:10 WBC 14.3 H 15.2 H (4.5-11.0) K/mm3 RBC 4.21 3.96 (3.65-5.03) M/mm3 Hgb 12.1 11.2 L (11.8-15.2) gm/dl Hct 36.7 34.5 L (35.5-45.6) % Plt Count 206 170 (140-440) K/mm3 Lymph # 0.8 L 0.8 L (1.2-5.4) K/mm3 [place] # 0.8 0.7 (0.0-0.8) K/mm3 Eos # 0.0 0.0 (0.0-0.4) K/mm3 Baso # 0.1 0.0 (0.0-0.1) K/mm3 Comprehensive Metabolic Panel 02/18/19 02/19/19 Range/Units 12:02 05:10 Sodium 140 139 (137-145) mmol/L Potassium 4.4 4.2 (3.6-5.0) mmol/L Chloride 99.0 101.7 (98-107) mmol/L Carbon Dioxide 26 23 (22-30) mmol/L BUN 18 19 (9-20) mg/dL Creatinine 0.8 0.9 (0.8-1.5) mg/dL Glucose 230 H 204 H (75-100) mg/dL Calcium 9.0 8.3 L (8.4-10.2) mg/dL Direct Bilirubin < 0.2 (0-0.2) mg/dL Indirect Bilirubin 0.2 mg/dL AST 18 21 (5-40) units/L ALT 17 16 (7-56) units/L Alkaline Phosphatase 125 98 (35-129) units/L Total Protein 8.4 H 6.8 (6.3-8.2) g/dL Albumin 4.1 3.6 L (3.9-5) g/dL - Imaging and Cardiology Echo: pending EKG: report reviewed, image reviewed EKG interpretations - Telemetry EKG Rhythm: Atrial Fibrillation - EKG Supraventricular dysrhythmia: atrial fibrillation AV and intraventricular conduction: right bundle branch block Assessment and Plan Pt presented with acute HF, suspected PNA, lactic acidosis, fever, acute respiratory failure requiring BiPAP, atrial fibrillation with currently CVR. He has history of CAD s/p CABG, HF with "weak heart", atrial fibrillation (was anticoagulated on Eliquis which was [facility] per pt report), HTN, DM, PVD. He is followed by [facility]. DDimer elevated - chest CTA suboptimal exam without definite evidence of PE, V/Q scan low prob for PE. Eliquis resumed per primary team. Will increase IV lasix to 40mg BID and initiate coreg and lisinopril (pt is unable to recall home medications). Await echo. Blood cultures pending, PNA management per primary. Further recs to follow per hospital course. The patient has been seen in conjunction with Dr. Livingston who agrees with the assessment and plan of care. - Patient Problems (1) Acute heart failure Current Visit: Yes Status: Acute (2) Atrial fibrillation Current Visit: Yes Status: Chronic (3) Acute respiratory failure Current Visit: Yes Status: Acute (4) Pneumonia Current Visit: Yes Status: Suspected Qualifiers: Lung location: unspecified part of lung (5) CAD (coronary artery disease) Current Visit: Yes Status: Chronic (6) History of coronary artery bypass graft Current Visit: Yes Status: Chronic (7) HTN (hypertension) Current Visit: Yes Status: Chronic (8) Diabetes Current Visit: Yes Status: Chronic
[2019-02-19] MEDS ORDERED: APIXABAN 2.5 MG TAB PO SCH (10:22)
[2019-02-19] MEDS ORDERED: FUROSEMIDE 20 MG/2 ML INJ IV SCH (10:22)
[2019-02-19] MEDS: APIXABAN 5 MG TAB PO SCH ×2 (10:43→21:23)
[2019-02-19] MEDS: INSULIN LISPRO 100 UNIT/ML SUB-Q SCH ×4 (10:44→21:23)
[2019-02-19] MEDS: FUROSEMIDE 40 MG/4 ML INJ IV SCH ×2 (10:59→17:58)
[2019-02-19] MEDS ORDERED: FLU VACC QUAD 2019-20 (3 YR UP)/PF 60 MCG/0.5 ML SYRINGE IM ONE (12:00)
[2019-02-19] MEDS ORDERED: PIPERACILLIN/TAZOBACTAM 3.375 3.375 GM/50 ML BAG IV SCH (14:00)
--- NOTE | 2019-02-19 15:41 | Progress Note ---
Assessment and Plan Assessment and plan: Severe Sepsis, gram-positive cocci bacteremia - Patient is on IV Zosyn - Gram-positive cocci, pending identification - Patient is being managed according to sepsis protocol Lactic acidosis - Resolved with fluids and antibiotics Acute on chronic combined systolic and diastolic CHF - Cardiology consulted - Patient is being treated for CHF exacerbation - Echo showed ejection fraction of 25-30%, was grad 2 diastolic dysfunction Acute respiratory failure - due to the above - Patient is on Ventimask - Continue to monitor Atrial fibrillation - Rate is controlled, continue anticoagulation - Continue carvedilol Diabetes mellitus -Sliding scale insulin Obesity hypoventilation syndrome - Patient is on oxygen DVT prophylaxis - Continue eliquis Disposition - Continue inpatient care History Interval history: Patient was seen and evaluated this morning, patient is in respiratory distress on non-rebreather mask. Hospitalist Physical - Physical exam Narrative exam: Patient is in pulmonary distress, on Ventimask The patient is obese. Vital signs as documented. Head exam is unremarkable. No scleral icterus . Neck is without jugular venous distension, thyromegaly, or carotid bruits. Lungs are decreased air entry on the bibasilar area. Cardiac exam reveals irregular rate and Rhythm. Abdominal exam reveals normal bowel sounds, no masses, no organomegaly and no aortic enlargement. Extremities are nonedematous and both femoral and pedal pulses are normal. VEGETABLE CANNER: Alert and oriented 3. No focal weakness. - Constitutional Vitals: Temp Pulse Resp BP Pulse Ox 98.1 F 74 18 157/71 100 02/19/19 11:22 02/19/19 12:00 02/19/19 11:22 02/19/19 11:22 02/19/19 11:22 General appearance: Present: no acute distress Results - Labs CBC & Chem 7: 02/19/19 05:10 02/19/19 05:10 Labs: Laboratory Last Values WBC 15.2 K/mm3 (4.5-11.0) H 02/19/19 05:10 RBC 3.96 M/mm3 (3.65-5.03) 02/19/19 05:10 Hgb 11.2 gm/dl (11.8-15.2) L 02/19/19 05:10 Hct 34.5 % (35.5-45.6) L 02/19/19 05:10 MCV 87 fl (84-94) 02/19/19 05:10 MCH 28 pg (28-32) 02/19/19 05:10 MCHC 33 % (32-34) 02/19/19 05:10 RDW 15.5 % (13.2-15.2) H 02/19/19 05:10 Plt Count 170 K/mm3 (140-440) 02/19/19 05:10 Lymph % (Auto) 5.2 % (13.4-35.0) L 02/19/19 05:10 [place] % (Auto) 4.7 % (0.0-7.3) 02/19/19 05:10 Eos % (Auto) 0.0 % (0.0-4.3) 02/19/19 05:10 Baso % (Auto) 0.3 % (0.0-1.8) 02/19/19 05:10 Lymph # 0.8 K/mm3 (1.2-5.4) L 02/19/19 05:10 [place] # 0.7 K/mm3 (0.0-0.8) 02/19/19 05:10 Eos # 0.0 K/mm3 (0.0-0.4) 02/19/19 05:10 Baso # 0.0 K/mm3 (0.0-0.1) 02/19/19 05:10 Seg Neutrophils % 89.8 % (40.0-70.0) H 02/19/19 05:10 Seg Neutrophils # 13.6 K/mm3 (1.8-7.7) H 02/19/19 05:10 PT 14.1 Sec. (12.2-14.9) 02/18/19 Unknown INR 1.10 (0.87-1.13) 02/18/19 Unknown APTT 29.7 Sec. (24.2-36.6) 02/18/19 Unknown D-Dimer 2356.30 ng/mlDDU (0-234) H 02/18/19 Unknown POC ABG pH 7.424 (7.35-7.45) 02/18/19 15:15 POC ABG pCO2 36.7 (35-45) 02/18/19 15:15 POC ABG pO2 132 (80-105) H 02/18/19 15:15 POC ABG HCO3 24.0 (22-26 mml/L) 02/18/19 15:15 POC ABG Total CO2 25 (23-27mmol/L) 02/18/19 15:15 POC ABG O2 Sat 99 02/18/19 15:15 POC ABG Base Excess 0 ((-2) - (+3)mmol/L) 02/18/19 15:15 VBG pH 7.370 (7.320-7.420) 02/18/19 12:02 FiO2 35 % 02/18/19 15:15 Sodium 139 mmol/L (137-145) 02/19/19 05:10 Potassium 4.2 mmol/L (3.6-5.0) 02/19/19 05:10 Chloride 101.7 mmol/L (98-107) 02/19/19 05:10 Carbon Dioxide 23 mmol/L (22-30) 02/19/19 05:10 Anion Gap 19 mmol/L 02/19/19 05:10 BUN 19 mg/dL (9-20) 02/19/19 05:10 Creatinine 0.9 mg/dL (0.8-1.5) 02/19/19 05:10 Estimated GFR > 60 ml/min 02/19/19 05:10 BUN/Creatinine Ratio 21 % 02/19/19 05:10 Glucose 204 mg/dL (75-100) H 02/19/19 05:10 POC Glucose 167 (70-105) H 02/19/19 08:05 Hemoglobin A1c 8.3 % (4-6) H 02/18/19 23:49 Lactic Acid 1.90 mmol/L (0.7-2.0) 02/19/19 06:27 Calcium 8.3 mg/dL (8.4-10.2) L 02/19/19 05:10 Magnesium 1.80 mg/dL (1.7-2.3) 02/18/19 22:01 Total Bilirubin 0.40 mg/dL (0.1-1.2) 02/19/19 05:10 Direct Bilirubin < 0.2 mg/dL (0-0.2) 02/18/19 12:02 Indirect Bilirubin 0.2 mg/dL 02/18/19 12:02 AST 21 units/L (5-40) 02/19/19 05:10 ALT 16 units/L (7-56) 02/19/19 05:10 Alkaline Phosphatase 98 units/L (35-129) 02/19/19 05:10 Troponin T 0.013 ng/mL (0.00-0.029) 02/18/19 12:02 NT-Pro-B Natriuret Pep 540.1 pg/mL (0-900) 02/18/19 12:02 Total Protein 6.8 g/dL (6.3-8.2) 02/19/19 05:10 Albumin 3.6 g/dL (3.9-5) L 02/19/19 05:10 Albumin/Globulin Ratio 1.1 % 02/19/19 05:10 TSH 0.514 mlU/mL (0.270-4.200) 02/18/19 22:01 Free T4 1.30 ng/dL (0.76-1.46) 02/18/19 22:01 Urine Color Yellow (Yellow) 02/18/19 Unknown Urine Turbidity Clear (Clear) 02/18/19 Unknown Urine pH 6.0 (5.0-7.0) 02/18/19 Unknown Ur Specific [place] 1.020 (1.003-1.030) 02/18/19 Unknown Urine Protein >500 mg/dL (Negative) 02/18/19 Unknown Urine Glucose (UA) 150 mg/dL (Negative) 02/18/19 Unknown Urine Ketones Tr mg/dL (Negative) 02/18/19 Unknown Urine Blood Sm (Negative) 02/18/19 Unknown Urine Nitrite Neg (Negative) 02/18/19 Unknown Urine Bilirubin Neg (Negative) 02/18/19 Unknown Urine Urobilinogen 2.0 mg/dL (<2.0) 02/18/19 Unknown Ur Leukocyte Esterase Neg (Negative) 02/18/19 Unknown Urine WBC (Auto) 1.0 /HPF (0.0-6.0) 02/18/19 Unknown Urine RBC (Auto) 14.0 /HPF (0.0-6.0) 02/18/19 Unknown U Epithel Cells (Auto) 1.0 /HPF (0-13.0) 02/18/19 Unknown Active Medications - Current Medications Current Medications: Generic Name Dose Route Start Last Admin Trade Name Freq PRN Reason Stop Dose Admin Acetaminophen 650 mg 02/18/19 17:48 02/19/19 05:23 Tylenol PO 650 mg Q4H PRN Administration Pain MILD(1-3)/Fever >100.5/LARSON Albuterol 2.5 mg 02/18/19 17:48 02/18/19 20:30 Proventil IH 2.5 mg Q4HRT PRN Administration Shortness Of Breath Apixaban 5 mg 02/19/19 11:00 02/19/19 10:43 Eliquis PO 5 mg Q12HR [facility] Administration Atorvastatin Calcium 20 mg 02/19/19 22:00 Lipitor PO QHS [facility] Carvedilol 6.25 mg 02/19/19 22:00 Coreg PO BID [facility] Dextrose 0 ml 02/18/19 22:27 D50w (25gm) Syringe IV Q30MIN PRN Hypoglycemia Furosemide 40 mg 02/19/19 11:00 02/19/19 10:59 Lasix IV 40 mg 0600,1800 [facility] Administration Piperacillin Sod/Tazobactam Sod 3.375 gm in 50 mls @ 100 mls/hr 02/19/19 14:00 Zosyn/Ns 3.375gm/50ml IV Q8HR [facility] Protocol Insulin Human Lispro 0 unit 02/19/19 07:30 02/19/19 13:49 Humalog SUB-Q Not Given ACHS [facility] Protocol Lisinopril 10 mg 02/20/19 10:00 Zestril PO QDAY [facility] Ondansetron HCl 4 mg 02/18/19 17:48 Zofran IV Q8H PRN Nausea And Vomiting Sodium Chloride 10 ml 02/18/19 22:00 02/19/19 10:43 Sodium Chloride Flush Syringe 10 Ml IV 10 ml BID [facility] Administration Sodium Chloride 10 ml 02/18/19 17:48 Sodium Chloride Flush Syringe 10 Ml IV PRN PRN LINE FLUSH
[2019-02-19] MEDS: PIPERACILLIN/TAZOBACTAM 3.375 3.375 GM/50 ML BAG IV SCH ×2 (16:48→22:21)
[2019-02-19] MEDS: ALBUTEROL 2.5 MG/3 ML NEBU IH PRN (20:45)
[2019-02-19] MEDS ORDERED: dilTIAZem 30 MG TAB PO SCH (21:13)
[2019-02-19] MEDS: carvediloL 6.25 MG TAB PO SCH (21:23)
[2019-02-20] MEDS: FUROSEMIDE 40 MG/4 ML INJ IV SCH ×2 (05:52→17:18)
[2019-02-20] MEDS: PIPERACILLIN/TAZOBACTAM 3.375 3.375 GM/50 ML BAG IV SCH ×2 (05:52→14:00)
[2019-02-20 06:48] LABS: Basophils % (Auto) 0.2 % (0.0-1.8); Eosinophils % (Auto) 0.2 % (0.0-4.3); Hematocrit 32.5 % (35.5-45.6); Hemoglobin 10.5 gm/dl (11.8-15.2); Lymphocytes % (Auto) 9.2 % (13.4-35.0); Mean Corpuscular HGB Conc 32 % (32-34); Mean Corpuscular Volume 88 fl (84-94); Monocytes # (Auto) 0.9 K/mm3 (0.0-0.8); Monocytes % (Auto) 8.1 % (0.0-7.3); Platelet Count 156 K/mm3 (140-440); Red Cell Distribution Width 15.8 % (13.2-15.2)
[2019-02-20 07:16] LABS: BUN/Creatinine Ratio 18; Blood Urea Nitrogen 22 mg/dL (9-20); Hemolysis Index 7
[2019-02-20] MEDS: INSULIN LISPRO 100 UNIT/ML SUB-Q SCH ×4 (08:00→21:36)
--- NOTE | 2019-02-20 09:36 | Progress Note ---
Assessment and Plan Assessment and plan: Severe Sepsis, gram-positive cocci bacteremia - Patient is on IV Zosyn - Gram-positive cocci, pending identification - Patient is being managed according to sepsis protocol Lactic acidosis - Resolved with fluids and antibiotics Acute on chronic combined systolic and diastolic CHF - Cardiology consulted - Patient is being treated for CHF exacerbation - Echo showed ejection fraction of 25-30%, was grad 2 diastolic dysfunction - patient is on carvedilol and lisinopril Acute respiratory failure - due to the above - Patient is on Ventimask, will discuss with pulmonary to decrease and wean off if possible - Continue to monitor Atrial fibrillation - Rate is controlled, continue eliquis - Continue carvedilol Diabetes mellitus -Sliding scale insulin Obesity hypoventilation syndrome - Patient is on oxygen PVD; continue supportive care DVT prophylaxis - Continue eliquis Disposition - Continue inpatient care History Interval history: Patient was seen and evaluated this morning, patient is breathing is getting better. Hospitalist Physical - Physical exam Narrative exam: in pulmonary distress, on Ventimask The patient is obese. Vital signs as documented. Head exam is unremarkable. No scleral icterus . Neck is without jugular venous distension, thyromegaly, or carotid bruits. Lungs are decreased air entry on the bibasilar area. Cardiac exam reveals irregular rate and Rhythm. Abdominal exam reveals normal bowel sounds, no masses, no organomegaly and no aortic enlargement. Extremities swelling and ulceration of bilateral LE. [employer]: Alert and oriented 3. No focal weakness. - Constitutional Vitals: Temp Pulse Resp BP Pulse Ox 99.3 F 60 24 111/51 100 02/20/19 04:24 02/20/19 04:24 02/20/19 04:24 02/20/19 04:24 02/20/19 08:44 General appearance: Present: no acute distress Results - Labs CBC & Chem 7: 02/20/19 05:04 02/20/19 05:04 Labs: Laboratory Last Values WBC 11.1 K/mm3 (4.5-11.0) H 02/20/19 05:04 RBC 3.70 M/mm3 (3.65-5.03) 02/20/19 05:04 Hgb 10.5 gm/dl (11.8-15.2) L 02/20/19 05:04 Hct 32.5 % (35.5-45.6) L 02/20/19 05:04 MCV 88 fl (84-94) 02/20/19 05:04 MCH 28 pg (28-32) 02/20/19 05:04 MCHC 32 % (32-34) 02/20/19 05:04 RDW 15.8 % (13.2-15.2) H 02/20/19 05:04 Plt Count 156 K/mm3 (140-440) 02/20/19 05:04 Lymph % (Auto) 9.2 % (13.4-35.0) L 02/20/19 05:04 [place] % (Auto) 8.1 % (0.0-7.3) H 02/20/19 05:04 Eos % (Auto) 0.2 % (0.0-4.3) 02/20/19 05:04 Baso % (Auto) 0.2 % (0.0-1.8) 02/20/19 05:04 Lymph # 1.0 K/mm3 (1.2-5.4) L 02/20/19 05:04 [place] # 0.9 K/mm3 (0.0-0.8) H 02/20/19 05:04 Eos # 0.0 K/mm3 (0.0-0.4) 02/20/19 05:04 Baso # 0.0 K/mm3 (0.0-0.1) 02/20/19 05:04 Seg Neutrophils % 82.3 % (40.0-70.0) H 02/20/19 05:04 Seg Neutrophils # 9.2 K/mm3 (1.8-7.7) H 02/20/19 05:04 PT 14.1 Sec. (12.2-14.9) 02/18/19 Unknown INR 1.10 (0.87-1.13) 02/18/19 Unknown APTT 29.7 Sec. (24.2-36.6) 02/18/19 Unknown D-Dimer 2356.30 ng/mlDDU (0-234) H 02/18/19 Unknown POC ABG pH 7.424 (7.35-7.45) 02/18/19 15:15 POC ABG pCO2 36.7 (35-45) 02/18/19 15:15 POC ABG pO2 132 (80-105) H 02/18/19 15:15 POC ABG HCO3 24.0 (22-26 mml/L) 02/18/19 15:15 POC ABG Total CO2 25 (23-27mmol/L) 02/18/19 15:15 POC ABG O2 Sat 99 02/18/19 15:15 POC ABG Base Excess 0 ((-2) - (+3)mmol/L) 02/18/19 15:15 VBG pH 7.370 (7.320-7.420) 02/18/19 12:02 FiO2 35 % 02/18/19 15:15 Sodium 140 mmol/L (137-145) 02/20/19 05:04 Potassium 3.9 mmol/L (3.6-5.0) 02/20/19 05:04 Chloride 99.4 mmol/L (98-107) 02/20/19 05:04 Carbon Dioxide 24 mmol/L (22-30) 02/20/19 05:04 Anion Gap 21 mmol/L 02/20/19 05:04 BUN 22 mg/dL (9-20) H 02/20/19 05:04 Creatinine 1.2 mg/dL (0.8-1.5) 02/20/19 05:04 Estimated GFR > 60 ml/min 02/20/19 05:04 BUN/Creatinine Ratio 18 % 02/20/19 05:04 Glucose 111 mg/dL (75-100) H 02/20/19 05:04 POC Glucose 109 (70-105) H 02/20/19 07:59 Hemoglobin A1c 8.3 % (4-6) H 02/18/19 23:49 Lactic Acid 1.90 mmol/L (0.7-2.0) 02/19/19 06:27 Calcium 8.0 mg/dL (8.4-10.2) L 02/20/19 05:04 Magnesium 1.80 mg/dL (1.7-2.3) 02/18/19 22:01 Total Bilirubin 0.40 mg/dL (0.1-1.2) 02/19/19 05:10 Direct Bilirubin < 0.2 mg/dL (0-0.2) 02/18/19 12:02 Indirect Bilirubin 0.2 mg/dL 02/18/19 12:02 AST 21 units/L (5-40) 02/19/19 05:10 ALT 16 units/L (7-56) 02/19/19 05:10 Alkaline Phosphatase 98 units/L (35-129) 02/19/19 05:10 Troponin T 0.013 ng/mL (0.00-0.029) 02/18/19 12:02 NT-Pro-B Natriuret Pep 540.1 pg/mL (0-900) 02/18/19 12:02 Total Protein 6.8 g/dL (6.3-8.2) 02/19/19 05:10 Albumin 3.6 g/dL (3.9-5) L 02/19/19 05:10 Albumin/Globulin Ratio 1.1 % 02/19/19 05:10 TSH 0.514 mlU/mL (0.270-4.200) 02/18/19 22:01 Free T4 1.30 ng/dL (0.76-1.46) 02/18/19 22:01 Urine Color Yellow (Yellow) 02/18/19 Unknown Urine Turbidity Clear (Clear) 02/18/19 Unknown Urine pH 6.0 (5.0-7.0) 02/18/19 Unknown Ur Specific [place] 1.020 (1.003-1.030) 02/18/19 Unknown Urine Protein >500 mg/dL (Negative) 02/18/19 Unknown Urine Glucose (UA) 150 mg/dL (Negative) 02/18/19 Unknown Urine Ketones Tr mg/dL (Negative) 02/18/19 Unknown Urine Blood Sm (Negative) 02/18/19 Unknown Urine Nitrite Neg (Negative) 02/18/19 Unknown Urine Bilirubin Neg (Negative) 02/18/19 Unknown Urine Urobilinogen 2.0 mg/dL (<2.0) 02/18/19 Unknown Ur Leukocyte Esterase Neg (Negative) 02/18/19 Unknown Urine WBC (Auto) 1.0 /HPF (0.0-6.0) 02/18/19 Unknown Urine RBC (Auto) 14.0 /HPF (0.0-6.0) 02/18/19 Unknown U Epithel Cells (Auto) 1.0 /HPF (0-13.0) 02/18/19 Unknown Active Medications - Current Medications Current Medications: Generic Name Dose Route Start Last Admin Trade Name Freq PRN Reason Stop Dose Admin Acetaminophen 650 mg 02/18/19 17:48 02/19/19 05:23 Tylenol PO 650 mg Q4H PRN Administration Pain MILD(1-3)/Fever >100.5/LARSON Albuterol 2.5 mg 02/18/19 17:48 02/19/19 20:45 Proventil IH 2.5 mg Q4HRT PRN Administration Shortness Of Breath Apixaban 5 mg 02/19/19 11:00 02/19/19 21:23 Eliquis PO 5 mg Q12HR CARMEN Administration Atorvastatin Calcium 20 mg 02/19/19 22:00 02/19/19 21:23 Lipitor PO 20 mg QHS CARMEN Administration Carvedilol 6.25 mg 02/19/19 22:00 02/19/19 21:23 Coreg PO 6.25 mg BID CARMEN Administration Dextrose 0 ml 02/18/19 22:27 D50w (25gm) Syringe IV Q30MIN PRN Hypoglycemia Furosemide 40 mg 02/19/19 11:00 02/20/19 05:52 Lasix IV 40 mg 0600,1800 CARMEN Administration Piperacillin Sod/Tazobactam Sod 3.375 gm in 50 mls @ 100 mls/hr 02/19/19 16:00 02/20/19 05:52 Zosyn/Ns 3.375gm/50ml IV 100 mls/hr Q8HR CARMEN Administration Insulin Human Lispro 0 unit 02/19/19 07:30 02/19/19 21:23 Humalog SUB-Q Not Given ACHS [facility] Protocol Lisinopril 10 mg 02/20/19 10:00 Zestril PO QDAY CARMEN Ondansetron HCl 4 mg 02/18/19 17:48 Zofran IV Q8H PRN Nausea And Vomiting Sodium Chloride 10 ml 02/18/19 22:00 02/19/19 21:23 Sodium Chloride Flush Syringe 10 Ml IV 10 ml BID CARMEN Administration Sodium Chloride 10 ml 02/18/19 17:48 Sodium Chloride Flush Syringe 10 Ml IV PRN PRN LINE FLUSH
--- NOTE | 2019-02-20 10:52 | Progress Note ---
Assessment and Plan Echo reviewed - EF 25-30%, dilated LV, dilated LA and RA, grade 2 diastolic dysfunction, mild to mod CA. Cont present cardiac management, including IV diuretics, coreg, lisinopril, Eliquis. Recommend to address AICD candidacy as OP. Pt verbalizes understanding. The patient has been seen in conjunction with Dr. Livingston who agrees with the assessment and plan of care. - Patient Problems (1) Acute HFrEF (heart failure with reduced ejection fraction) Current Visit: Yes Status: Acute (2) Cardiomyopathy Current Visit: Yes Status: Chronic (3) Atrial fibrillation Current Visit: Yes Status: Chronic (4) Acute respiratory failure Current Visit: Yes Status: Acute (5) Pneumonia Current Visit: Yes Status: Suspected Qualifiers: Lung location: unspecified part of lung (6) CAD (coronary artery disease) Current Visit: Yes Status: Chronic (7) History of coronary artery bypass graft Current Visit: Yes Status: Chronic (8) HTN (hypertension) Current Visit: Yes Status: Chronic (9) Diabetes Current Visit: Yes Status: Chronic Subjective Date of service: 02/20/19 Principal diagnosis: HF; afib Interval history: pt resting in bed, states he is feeling better, on O2 via venti mask. in AFib on tele HR 50s - 60s. Objective Last Vital Signs Temp 99.3 F 02/20/19 04:24 Pulse 60 02/20/19 04:24 Resp 24 02/20/19 04:24 BP 111/51 02/20/19 04:24 Pulse Ox 100 02/20/19 08:44 - Physical Examination General: No Apparent Distress HEENT: Positive: PERRL, Normocephaly, Mucus Membranes Moist Neck: Positive: neck supple, trachea midline Cardiac: Positive: irregularly irregular, S1/S2 Lungs: Positive: Decreased Breath Sounds, Rhonchi, Oxygen Neuro: Positive: Grossly Intact Abdomen: Negative: Tender Skin: Negative: Rash Musculoskeletal: No Pain Extremities: Present: +2 Edema (BLE) - Labs and Meds CBC 02/20/19 Range/Units 05:04 WBC 11.1 H (4.5-11.0) K/mm3 RBC 3.70 (3.65-5.03) M/mm3 Hgb 10.5 L (11.8-15.2) gm/dl Hct 32.5 L (35.5-45.6) % Plt Count 156 (140-440) K/mm3 Lymph # 1.0 L (1.2-5.4) K/mm3 [place] # 0.9 H (0.0-0.8) K/mm3 Eos # 0.0 (0.0-0.4) K/mm3 Baso # 0.0 (0.0-0.1) K/mm3 Comprehensive Metabolic Panel 02/20/19 Range/Units 05:04 Sodium 140 (137-145) mmol/L Potassium 3.9 (3.6-5.0) mmol/L Chloride 99.4 (98-107) mmol/L Carbon Dioxide 24 (22-30) mmol/L BUN 22 H (9-20) mg/dL Creatinine 1.2 (0.8-1.5) mg/dL Glucose 111 H (75-100) mg/dL Calcium 8.0 L (8.4-10.2) mg/dL - Imaging and Cardiology EKG: report reviewed, image reviewed Echo: report reviewed - Telemetry EKG Rhythm: Sinus Rhythm AV and intraventricular conduction: right bundle branch block
[2019-02-20] MEDS ORDERED: VANCOMYCIN 1,500 MG in SODIUM CHLORIDE 0.9% 500 ML 500 ML IV ONE (11:00)
[2019-02-20] MEDS: APIXABAN 5 MG TAB PO SCH ×2 (13:12→21:36)
[2019-02-20] MEDS: carvediloL 6.25 MG TAB PO SCH ×2 (13:16→21:36)
[2019-02-20] MEDS: LISINOPRIL 10 MG TAB PO SCH (13:16)
--- NOTE | 2019-02-20 16:19 | Consultation ---
History of Present Illness - Reason for Consult Consult date: 02/20/19 - History of Present Illness 83 yo M PMHx Dm2, HTN, PVD, CAD s/p CABG admitted to the hospital complaining of SOB. His symptoms began pedrito day prior to admission and were progressively worse throughout that day. he also complained of PND and orthopnea, as well as poor exercise tolerance and leg edema. He was otherwise asymptomatic. He denies any skin rash or wounds, sore throat, cough, sputum production. Febrile to 100.5 with a white count of 11. He is currently receiving zosyn. Blood cultures positive fro GAS. Imaging personally reviewed: Echo: no vegetations seen CXR: venous congestion Review of Systems: Bold if positive, otherwise negative General: fevers, chills, rigors HEENT: visual disturbance, diplopia, eye pain Respiratory: cough, sputum, hemoptysis, shortness of breath Cardiovascular: chest pain, syncope Gastrointestinal: nausea, vomiting, diarrhea, abdominal pain Genitourinary: dysuria, hematuria, flank pain Musculoskeletal: neck pain, back pain, joint pain, edema Neurologic: headaches, seizures Hematologic: easy bruising or bleeding Endocrine: night sweats, acute weight loss Skin: rash, jaundice, redness Psychiatric: suicidal, homicidal ideation Past History Past Medical History: atrial fib, CAD, diabetes, heart failure, hypertension Past Surgical History: CABG Social history: . denies: smoking, alcohol abuse, prescription drug abuse Family history: diabetes, hypertension Medications and Allergies Allergies Allergy/AdvReac Type Severity Reaction Status Date / Time morphine AdvReac Vomiting Verified 10/31/17 14:15 Active Meds: Active Medications Acetaminophen (Tylenol) 650 mg PO Q4H PRN PRN Reason: Pain MILD(1-3)/Fever >100.5/LARSON Last Admin: 02/19/19 05:23 Dose: 650 mg Documented by: Albuterol (Proventil) 2.5 mg IH Q4HRT PRN PRN Reason: Shortness Of Breath Last Admin: 02/19/19 20:45 Dose: 2.5 mg Documented by: Apixaban (Eliquis) 5 mg PO Q12HR [facility] Last Admin: 02/20/19 13:12 Dose: 5 mg Documented by: Atorvastatin Calcium (Lipitor) 20 mg PO QHS [facility] Last Admin: 02/19/19 21:23 Dose: 20 mg Documented by: Carvedilol (Coreg) 6.25 mg PO BID [facility] Last Admin: 02/20/19 13:16 Dose: 6.25 mg Documented by: Dextrose (D50w (25gm) Syringe) 0 ml IV Q30MIN PRN PRN Reason: Hypoglycemia Furosemide (Lasix) 40 mg IV 0600,1800 [facility] Last Admin: 02/20/19 05:52 Dose: 40 mg Documented by: Piperacillin Sod/Tazobactam Sod (Zosyn/Ns 3.375gm/50ml) 3.375 gm in 50 mls @ 100 mls/hr IV Q8HR [facility] Last Admin: 02/20/19 05:52 Dose: 100 mls/hr Documented by: Insulin Human Lispro (Humalog) 0 unit SUB-Q ACHS [facility]; Protocol Last Admin: 02/20/19 13:18 Dose: 4 unit Documented by: Lisinopril (Zestril) 10 mg PO QDAY [facility] Last Admin: 02/20/19 13:16 Dose: 10 mg Documented by: Ondansetron HCl (Zofran) 4 mg IV Q8H PRN PRN Reason: Nausea And Vomiting Sodium Chloride (Sodium Chloride Flush Syringe 10 Ml) 10 ml IV BID [facility] Last Admin: 02/20/19 13:12 Dose: 10 ml Documented by: Sodium Chloride (Sodium Chloride Flush Syringe 10 Ml) 10 ml IV PRN PRN PRN Reason: LINE FLUSH Physical Examination - Physical Exam Narrative exam: Constitutional: Alert, cooperative. No acute distress Head, Ears, Nose: Normocephalic, atraumatic. External ears, nose normal Eyes: Conjunctivae/corneas clear. No icterus. No ptosis. Neck: Supple, no meningeal signs Oral: dentition fair, no thrush Cardiovascular: S1, S2 normal. Respiratory: Good air entry, b/l crackles GI: Soft, non-tender; bowel sounds normal. No peritoneal signs. Musculoskeletal: 2+ pedal edema, no cyanosis. Skin: No rash or abscess Hem/Lymphatic: No palpable cervical or supraclavicular nodes. No lymphangitis Psych: Mood ok. Affect normal Neurological: Awake, alert, oriented. No gross abnormality - Constitutional Vitals: Vital Signs Temp Pulse Resp BP Pulse Ox 99 F 64 24 122/64 96 02/20/19 13:14 02/20/19 13:16 02/20/19 13:14 02/20/19 13:16 02/20/19 13:14 Temperature -Last 24 Hours Temperature 99 F Temperature 97.6 F Temperature 99.3 F Temperature 99.3 F Temperature 99.8 F Results - Labs CBC & Chem 7: 02/20/19 05:04 02/20/19 05:04 Labs: Abnormal lab results 02/19/19 02/19/19 02/19/19 Range/Units 13:35 17:46 21:31 WBC (4.5-11.0) K/mm3 Hgb (11.8-15.2) gm/dl Hct (35.5-45.6) % RDW (13.2-15.2) % Lymph % (Auto) (13.4-35.0) % [place] % (Auto) (0.0-7.3) % Lymph # (1.2-5.4) K/mm3 [place] # (0.0-0.8) K/mm3 Seg Neutrophils % (40.0-70.0) % Seg Neutrophils # (1.8-7.7) K/mm3 BUN (9-20) mg/dL Glucose (75-100) mg/dL POC Glucose 154 H 214 H 127 H (70-105) Calcium (8.4-10.2) mg/dL 02/20/19 02/20/19 02/20/19 Range/Units 05:04 05:04 07:59 WBC 11.1 H (4.5-11.0) K/mm3 Hgb 10.5 L (11.8-15.2) gm/dl Hct 32.5 L (35.5-45.6) % RDW 15.8 H (13.2-15.2) % Lymph % (Auto) 9.2 L (13.4-35.0) % [place] % (Auto) 8.1 H (0.0-7.3) % Lymph # 1.0 L (1.2-5.4) K/mm3 [place] # 0.9 H (0.0-0.8) K/mm3 Seg Neutrophils % 82.3 H (40.0-70.0) % Seg Neutrophils # 9.2 H (1.8-7.7) K/mm3 BUN 22 H (9-20) mg/dL Glucose 111 H (75-100) mg/dL POC Glucose 109 H (70-105) Calcium 8.0 L (8.4-10.2) mg/dL 02/20/19 Range/Units 12:42 WBC (4.5-11.0) K/mm3 Hgb (11.8-15.2) gm/dl Hct (35.5-45.6) % RDW (13.2-15.2) % Lymph % (Auto) (13.4-35.0) % [place] % (Auto) (0.0-7.3) % Lymph # (1.2-5.4) K/mm3 [place] # (0.0-0.8) K/mm3 Seg Neutrophils % (40.0-70.0) % Seg Neutrophils # (1.8-7.7) K/mm3 BUN (9-20) mg/dL Glucose (75-100) mg/dL POC Glucose 253 H (70-105) Calcium (8.4-10.2) mg/dL Assessment and Plan Cultures: 02/18 blood culture - 07/19 GAS A/P: 83 yo M PMHx Dm2, HTN, PVD, CAD s/p CABG admitted with CHF exacerbation and found to have GAS bacteremia. 1. Acute sepsis - secondary to GAS bacteremia. Present with fever and leukocytosis. 2. GAS bacteremia - Source likely nurmeous shallow wounds. Recommend narrowing coverage from Zosyn to ceftriaxone and clindamycin (clinda for 2 days). will need 2 weeks of therapy as echo was not evident for vegetations. 3. DM2 - recommend tight glycemic control for best immune function 4. Acute CHF exacerbation Recs: - stop pip-tazo - start ceftriaxone 2g q24h - start clindamycin 900mg q8h to complete 2 days. - repeat blood cultures in the AM. Thank you for the consult, we will continue to follow. MD Camm[facility] ([facility]) M: [phone] O: [phone] F: [phone]
[2019-02-20] MEDS: cefTRIAXone/NS 2 GM/100 ML 2 GM/100 ML BAG IV SCH (17:56)
[2019-02-20] MEDS: guaiFENesin DM 200/20 MG ORAL LIQD 10 ML PO PRN (17:57)
[2019-02-21 05:42] LABS: Basophils % (Auto) 0.2 % (0.0-1.8); Eosinophils # (Auto) 0.1 K/mm3 (0.0-0.4); Eosinophils % (Auto) 0.6 % (0.0-4.3); Hematocrit 33.2 % (35.5-45.6); Hemoglobin 10.9 gm/dl (11.8-15.2); Lymphocytes # (Auto) 1.2 K/mm3 (1.2-5.4); Lymphocytes % (Auto) 12.8 % (13.4-35.0); Mean Corpuscular HGB Conc 33 % (32-34); Mean Corpuscular Volume 87 fl (84-94); Monocytes # (Auto) 0.9 K/mm3 (0.0-0.8); Monocytes % (Auto) 9.1 % (0.0-7.3); Platelet Count 153 K/mm3 (140-440); Red Blood Count 3.81 M/mm3 (3.65-5.03); Red Cell Distribution Width 15.8 % (13.2-15.2)
[2019-02-21 06:12] LABS: BUN/Creatinine Ratio 25; Blood Urea Nitrogen 25 mg/dL (9-20); Calcium 7.7 mg/dL (8.4-10.2); Hemolysis Index 1
[2019-02-21] MEDS: FUROSEMIDE 40 MG/4 ML INJ IV SCH ×2 (06:13→17:35)
[2019-02-21] MEDS: INSULIN LISPRO 100 UNIT/ML SUB-Q SCH ×4 (07:30→22:50)
[2019-02-21] MEDS: LISINOPRIL 10 MG TAB PO SCH (09:32)
[2019-02-21] MEDS: APIXABAN 5 MG TAB PO SCH ×2 (09:33→22:50)
[2019-02-21] MEDS: carvediloL 6.25 MG TAB PO SCH ×2 (09:33→22:50)
--- NOTE | 2019-02-21 11:32 | Progress Note ---
Assessment and Plan Cultures: 02/18 blood culture - 07/19 GAS A/P: 83 yo M PMHx Dm2, HTN, PVD, CAD s/p CABG admitted with CHF exacerbation and found to have GAS bacteremia. 1. Acute sepsis - secondary to GAS bacteremia. Present with fever and leukocytosis. 2. GAS bacteremia - Source likely nurmeous shallow wounds. Recommend narrowing coverage from Zosyn to ceftriaxone and clindamycin (clinda for 2 days). will need 2 weeks of therapy as echo was not evident for vegetations. 3. DM2 - recommend tight glycemic control for best immune function 4. Acute CHF exacerbation Recs: - Continue ceftriaxone 2g q24h to complete 2 weeks from first negative culture. - Continue clindamycin 900mg q8h to complete 2 days. - wounds are all very shallow, minimal concern for osteo at present time. - ok for midline when cultures negative x48 hours. Thank you for the consult, we will continue to follow. Rocco James MD [facility] ([facility]) M: [phone] O: [phone] F: [phone] Subjective Date of service: 02/21/19 Principal diagnosis: HF; afib Interval history: Remains short of breath. Afebrile. Normal white count. Objective - Exam Narrative Exam: Constitutional: Alert, cooperative. No acute distress Head, Ears, Nose: Normocephalic, atraumatic. External ears, nose normal Eyes: Conjunctivae/corneas clear. No icterus. No ptosis. Neck: Supple, no meningeal signs Oral: dentition fair, no thrush Cardiovascular: S1, S2 normal. Respiratory: Good air entry, b/l crackles GI: Soft, non-tender; bowel sounds normal. No peritoneal signs. Musculoskeletal: 2+ pedal edema, no cyanosis. Skin: No rash or abscess Hem/Lymphatic: No palpable cervical or supraclavicular nodes. No lymphangitis Psych: Mood ok. Affect normal Neurological: Awake, alert, oriented. No gross abnormality - Constitutional Vitals: Vital Signs Temp Pulse Resp BP Pulse Ox 98.3 F 56 L 21 131/59 100 02/21/19 04:01 02/21/19 09:33 02/21/19 04:01 02/21/19 09:33 02/21/19 08:28 Temperature -Last 24 Hours Temperature 98.3 F Temperature 97.7 F Temperature 98.9 F Temperature 99.6 F Temperature 99 F - Labs CBC & Chem 7: 02/21/19 04:54 02/21/19 04:54 Labs: Abnormal lab results 02/20/19 02/20/19 02/21/19 Range/Units 12:42 20:13 04:54 Hgb 10.9 L (11.8-15.2) gm/dl Hct 33.2 L (35.5-45.6) % RDW 15.8 H (13.2-15.2) % Lymph % (Auto) 12.8 L (13.4-35.0) % [place] % (Auto) 9.1 H (0.0-7.3) % [place] # 0.9 H (0.0-0.8) K/mm3 Seg Neutrophils % 77.3 H (40.0-70.0) % Potassium (3.6-5.0) mmol/L BUN (9-20) mg/dL Glucose (75-100) mg/dL POC Glucose 253 H 133 H (70-105) Calcium (8.4-10.2) mg/dL 02/21/19 Range/Units 04:54 Hgb (11.8-15.2) gm/dl Hct (35.5-45.6) % RDW (13.2-15.2) % Lymph % (Auto) (13.4-35.0) % [place] % (Auto) (0.0-7.3) % [place] # (0.0-0.8) K/mm3 Seg Neutrophils % (40.0-70.0) % Potassium 3.4 L (3.6-5.0) mmol/L BUN 25 H (9-20) mg/dL Glucose 111 H (75-100) mg/dL POC Glucose (70-105) Calcium 7.7 L (8.4-10.2) mg/dL
--- NOTE | 2019-02-21 12:44 | Progress Note ---
Assessment and Plan Cont present cardiac management, including IV diuretics, coreg, lisinopril, Eliquis. Recommend to address AICD candidacy as OP. Pt verbalizes understanding. The patient has been seen in conjunction with Dr. Livingston who agrees with the assessment and plan of care. - Patient Problems (1) Acute HFrEF (heart failure with reduced ejection fraction) Current Visit: Yes Status: Acute (2) Cardiomyopathy Current Visit: Yes Status: Chronic (3) Atrial fibrillation Current Visit: Yes Status: Chronic (4) Acute respiratory failure Current Visit: Yes Status: Acute (5) Pneumonia Current Visit: Yes Status: Suspected Qualifiers: Lung location: unspecified part of lung (6) CAD (coronary artery disease) Current Visit: Yes Status: Chronic (7) History of coronary artery bypass graft Current Visit: Yes Status: Chronic (8) HTN (hypertension) Current Visit: Yes Status: Chronic (9) Diabetes Current Visit: Yes Status: Chronic (10) Bacteremia Current Visit: Yes Status: Acute (11) Sepsis Current Visit: Yes Status: Acute Subjective Date of service: 02/21/19 Principal diagnosis: HF; afib Interval history: pt resting in bed, states he is feeling better, BLE edema improving. in AFib on tele HR 50s - 60s, HR low 40s overnight, pt reports that he was wearing his CPAP. Objective Last Vital Signs Temp 98.0 F 02/21/19 12:15 Pulse 51 L 02/21/19 12:15 Resp 18 02/21/19 12:15 BP 115/47 02/21/19 12:15 Pulse Ox 96 02/21/19 12:15 - Physical Examination General: No Apparent Distress HEENT: Positive: PERRL, Normocephaly, Mucus Membranes Moist Neck: Positive: neck supple, trachea midline Cardiac: Positive: irregularly irregular, S1/S2 Lungs: Positive: Decreased Breath Sounds Neuro: Positive: Grossly Intact Abdomen: Negative: Tender Skin: Negative: Rash Musculoskeletal: No Pain Extremities: Present: +2 Edema (BLE) - Labs and Meds CBC 02/21/19 Range/Units 04:54 WBC 9.7 (4.5-11.0) K/mm3 RBC 3.81 (3.65-5.03) M/mm3 Hgb 10.9 L (11.8-15.2) gm/dl Hct 33.2 L (35.5-45.6) % Plt Count 153 (140-440) K/mm3 Lymph # 1.2 (1.2-5.4) K/mm3 [place] # 0.9 H (0.0-0.8) K/mm3 Eos # 0.1 (0.0-0.4) K/mm3 Baso # 0.0 (0.0-0.1) K/mm3 Comprehensive Metabolic Panel 02/21/19 Range/Units 04:54 Sodium 140 (137-145) mmol/L Potassium 3.4 L (3.6-5.0) mmol/L Chloride 99.1 (98-107) mmol/L Carbon Dioxide 26 (22-30) mmol/L BUN 25 H (9-20) mg/dL Creatinine 1.0 (0.8-1.5) mg/dL Glucose 111 H (75-100) mg/dL Calcium 7.7 L (8.4-10.2) mg/dL - Imaging and Cardiology EKG: report reviewed, image reviewed Echo: report reviewed ( EF 25-30%, dilated LV, dilated LA and RA, grade 2 diastolic dysfunction, mild to mod [place]. ) - Telemetry EKG Rhythm: Atrial Fibrillation AV and intraventricular conduction: right bundle branch block
--- NOTE | 2019-02-21 15:21 | Progress Note ---
Assessment and Plan Assessment and plan: Severe Sepsis, gram-positive cocci bacteremia - Patient is on IV ceftriaxone and clinidamycin - Blood culture grew Group B beta-hemolytic streptococci - ID recommend IV antibiotics for 2 weeks Lactic acidosis - Resolved with fluids and antibiotics Acute on chronic combined systolic and diastolic CHF - Cardiology consulted - Patient is being treated for CHF exacerbation - Echo showed ejection fraction of 25-30%, was grad 2 diastolic dysfunction - patient is on carvedilol, lisinopril and eliquis Acute respiratory failure - due to the above - Patient is on Ventimask, will discuss with pulmonary to decrease and wean off if possible - Continue to monitor Atrial fibrillation - Rate is controlled, continue eliquis - Continue carvedilol Diabetes mellitus -Sliding scale insulin Obesity hypoventilation syndrome - Patient is on oxygen PVD; continue supportive care DVT prophylaxis - Continue eliquis Disposition - Continue inpatient care History Interval history: Patient was seen and evaluated this morning, patient is breathing is getting better. Hospitalist Physical - Physical exam Narrative exam: in pulmonary distress, on Ventimask The patient is obese. Vital signs as documented. Head exam is unremarkable. No scleral icterus . Neck is without jugular venous distension, thyromegaly, or carotid bruits. Lungs are decreased air entry on the bibasilar area. Cardiac exam reveals irregular rate and Rhythm. Abdominal exam reveals normal bowel sounds, no masses, no organomegaly and no aortic enlargement. Extremities swelling and ulceration of bilateral LE. 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 No focal weakness. - Constitutional Vitals: Temp Pulse Resp BP Pulse Ox 98.0 F 51 L 18 115/47 96 02/21/19 12:15 02/21/19 12:15 02/21/19 12:15 02/21/19 12:15 02/21/19 12:15 General appearance: Present: no acute distress Results - Labs CBC & Chem 7: 02/21/19 04:54 02/21/19 04:54 Labs: Laboratory Last Values WBC 9.7 K/mm3 (4.5-11.0) 02/21/19 04:54 RBC 3.81 M/mm3 (3.65-5.03) 02/21/19 04:54 Hgb 10.9 gm/dl (11.8-15.2) L 02/21/19 04:54 Hct 33.2 % (35.5-45.6) L 02/21/19 04:54 MCV 87 fl (84-94) 02/21/19 04:54 MCH 29 pg (28-32) 02/21/19 04:54 MCHC 33 % (32-34) 02/21/19 04:54 RDW 15.8 % (13.2-15.2) H 02/21/19 04:54 Plt Count 153 K/mm3 (140-440) 02/21/19 04:54 Lymph % (Auto) 12.8 % (13.4-35.0) L 02/21/19 04:54 [place] % (Auto) 9.1 % (0.0-7.3) H 02/21/19 04:54 Eos % (Auto) 0.6 % (0.0-4.3) 02/21/19 04:54 Baso % (Auto) 0.2 % (0.0-1.8) 02/21/19 04:54 Lymph # 1.2 K/mm3 (1.2-5.4) 02/21/19 04:54 [place] # 0.9 K/mm3 (0.0-0.8) H 02/21/19 04:54 Eos # 0.1 K/mm3 (0.0-0.4) 02/21/19 04:54 Baso # 0.0 K/mm3 (0.0-0.1) 02/21/19 04:54 Seg Neutrophils % 77.3 % (40.0-70.0) H 02/21/19 04:54 Seg Neutrophils # 7.5 K/mm3 (1.8-7.7) 02/21/19 04:54 PT 14.1 Sec. (12.2-14.9) 02/18/19 Unknown INR 1.10 (0.87-1.13) 02/18/19 Unknown APTT 29.7 Sec. (24.2-36.6) 02/18/19 Unknown D-Dimer 2356.30 ng/mlDDU (0-234) H 02/18/19 Unknown POC ABG pH 7.424 (7.35-7.45) 02/18/19 15:15 POC ABG pCO2 36.7 (35-45) 02/18/19 15:15 POC ABG pO2 132 (80-105) H 02/18/19 15:15 POC ABG HCO3 24.0 (22-26 mml/L) 02/18/19 15:15 POC ABG Total CO2 25 (23-27mmol/L) 02/18/19 15:15 POC ABG O2 Sat 99 02/18/19 15:15 POC ABG Base Excess 0 ((-2) - (+3)mmol/L) 02/18/19 15:15 VBG pH 7.370 (7.320-7.420) 02/18/19 12:02 FiO2 35 % 02/18/19 15:15 Sodium 140 mmol/L (137-145) 02/21/19 04:54 Potassium 3.4 mmol/L (3.6-5.0) L 02/21/19 04:54 Chloride 99.1 mmol/L (98-107) 02/21/19 04:54 Carbon Dioxide 26 mmol/L (22-30) 02/21/19 04:54 Anion Gap 18 mmol/L 02/21/19 04:54 BUN 25 mg/dL (9-20) H 02/21/19 04:54 Creatinine 1.0 mg/dL (0.8-1.5) 02/21/19 04:54 Estimated GFR > 60 ml/min 02/21/19 04:54 BUN/Creatinine Ratio 25 % 02/21/19 04:54 Glucose 111 mg/dL (75-100) H 02/21/19 04:54 POC Glucose 158 (70-105) H 02/21/19 12:15 Hemoglobin A1c 8.3 % (4-6) H 02/18/19 23:49 Lactic Acid 1.90 mmol/L (0.7-2.0) 02/19/19 06:27 Calcium 7.7 mg/dL (8.4-10.2) L 02/21/19 04:54 Magnesium 1.80 mg/dL (1.7-2.3) 02/18/19 22:01 Total Bilirubin 0.40 mg/dL (0.1-1.2) 02/19/19 05:10 Direct Bilirubin < 0.2 mg/dL (0-0.2) 02/18/19 12:02 Indirect Bilirubin 0.2 mg/dL 02/18/19 12:02 AST 21 units/L (5-40) 02/19/19 05:10 ALT 16 units/L (7-56) 02/19/19 05:10 Alkaline Phosphatase 98 units/L (35-129) 02/19/19 05:10 Troponin T 0.013 ng/mL (0.00-0.029) 02/18/19 12:02 NT-Pro-B Natriuret Pep 540.1 pg/mL (0-900) 02/18/19 12:02 Total Protein 6.8 g/dL (6.3-8.2) 02/19/19 05:10 Albumin 3.6 g/dL (3.9-5) L 02/19/19 05:10 Albumin/Globulin Ratio 1.1 % 02/19/19 05:10 TSH 0.514 mlU/mL (0.270-4.200) 02/18/19 22:01 Free T4 1.30 ng/dL (0.76-1.46) 02/18/19 22:01 Urine Color Yellow (Yellow) 02/18/19 Unknown Urine Turbidity Clear (Clear) 02/18/19 Unknown Urine pH 6.0 (5.0-7.0) 02/18/19 Unknown Ur Specific [place] 1.020 (1.003-1.030) 02/18/19 Unknown Urine Protein >500 mg/dL (Negative) 02/18/19 Unknown Urine Glucose (UA) 150 mg/dL (Negative) 02/18/19 Unknown Urine Ketones Tr mg/dL (Negative) 02/18/19 Unknown Urine Blood Sm (Negative) 02/18/19 Unknown Urine Nitrite Neg (Negative) 02/18/19 Unknown Urine Bilirubin Neg (Negative) 02/18/19 Unknown Urine Urobilinogen 2.0 mg/dL (<2.0) 02/18/19 Unknown Ur Leukocyte Esterase Neg (Negative) 02/18/19 Unknown Urine WBC (Auto) 1.0 /HPF (0.0-6.0) 02/18/19 Unknown Urine RBC (Auto) 14.0 /HPF (0.0-6.0) 02/18/19 Unknown U Epithel Cells (Auto) 1.0 /HPF (0-13.0) 02/18/19 Unknown Active Medications - Current Medications Current Medications: Generic Name Dose Route Start Last Admin Trade Name Freq PRN Reason Stop Dose Admin Acetaminophen 650 mg 02/18/19 17:48 02/19/19 05:23 Tylenol PO 650 mg Q4H PRN Administration Pain MILD(1-3)/Fever >100.5/LARSON Albuterol 2.5 mg 02/18/19 17:48 02/19/19 20:45 Proventil IH 2.5 mg Q4HRT PRN Administration Shortness Of Breath Apixaban 5 mg 02/19/19 11:00 02/21/19 09:33 Eliquis PO 5 mg Q12HR CARMEN Administration Atorvastatin Calcium 20 mg 02/19/19 22:00 02/20/19 21:36 Lipitor PO 20 mg QHS CARMEN Administration Carvedilol 6.25 mg 02/19/19 22:00 02/21/19 09:33 Coreg PO 6.25 mg BID CARMEN Administration Dextrose 0 ml 02/18/19 22:27 D50w (25gm) Syringe IV Q30MIN PRN Hypoglycemia Furosemide 40 mg 02/19/19 11:00 02/21/19 06:13 Lasix IV Not Given 0600,1800 [facility] Guaifenesin 10 ml 02/20/19 17:46 02/20/19 17:57 Guaifenesin Dm Syrup PO 10 ml Q4H PRN Administration Cough Clindamycin HCl 900 mg in 50 mls @ 100 mls/hr 02/20/19 18:00 02/21/19 09:29 Cleocin 900 Mg/50 Ml IV 100 mls/hr Q8H CARMEN Administration Protocol Ceftriaxone Sodium 2 gm in 100 mls @ 200 mls/hr 02/20/19 18:00 02/20/19 17:56 Rocephin/Ns 2 Gm/100 Ml IV 200 mls/hr Q24H CARMEN Administration Protocol Calcium Gluconate 2,000 mg/ 120 mls @ 660 mls/hr 02/21/19 15:10 Sodium Chloride IV 02/21/19 15:20 ONCE ONE Insulin Human Lispro 0 unit 02/19/19 07:30 02/21/19 12:00 Humalog SUB-Q 2 unit ACHS CARMEN Administration Protocol Lisinopril 10 mg 02/20/19 10:00 02/21/19 09:32 Zestril PO 10 mg QDAY CARMEN Administration Ondansetron HCl 4 mg 02/18/19 17:48 Zofran IV Q8H PRN Nausea And Vomiting Sodium Chloride 10 ml 02/18/19 22:00 02/21/19 09:36 Sodium Chloride Flush Syringe 10 Ml IV 10 ml BID CARMEN Administration Sodium Chloride 10 ml 02/18/19 17:48 Sodium Chloride Flush Syringe 10 Ml IV PRN PRN LINE FLUSH
[2019-02-21] MEDS ORDERED: CALCIUM GLUCONATE 2,000 MG in SODIUM CHLORIDE 0.9% 100 ML IV ONE (16:10)
[2019-02-21] MEDS: cefTRIAXone/NS 2 GM/100 ML 2 GM/100 ML BAG IV SCH (17:36)
[2019-02-21] MEDS: APIXABAN 2.5 MG TAB PO SCH (19:52)
[2019-02-22 04:47] LABS: BUN/Creatinine Ratio 30; Blood Urea Nitrogen 27 mg/dL (9-20); Calcium 7.9 mg/dL (8.4-10.2); Hemolysis Index 0
[2019-02-22] MEDS: FUROSEMIDE 40 MG/4 ML INJ IV SCH ×2 (06:12→17:20)
[2019-02-22] MEDS: INSULIN LISPRO 100 UNIT/ML SUB-Q SCH ×4 (09:13→23:04)
[2019-02-22] MEDS: LISINOPRIL 10 MG TAB PO SCH (09:16)
[2019-02-22] MEDS: carvediloL 6.25 MG TAB PO SCH ×2 (09:16→22:54)
[2019-02-22] MEDS: APIXABAN 5 MG TAB PO SCH ×2 (09:16→23:03)
--- NOTE | 2019-02-22 13:01 | Progress Note ---
Assessment and Plan Cultures: 02/18 blood culture - 07/19 GAS A/P: 83 yo M PMHx Dm2, HTN, PVD, CAD s/p CABG admitted with CHF exacerbation and found to have GAS bacteremia. 1. Acute sepsis - secondary to GAS bacteremia. Present with fever and leukocytosis. 2. GAS bacteremia - Source likely nurmeous shallow wounds. Recommend narrowing coverage from Zosyn to ceftriaxone and clindamycin (clinda for 2 days). will need 2 weeks of therapy as echo was not evident for vegetations. 3. DM2 - recommend tight glycemic control for best immune function 4. Acute CHF exacerbation Recs: - Continue ceftriaxone 2g q24h to complete 2 weeks from first negative culture. - Continue clindamycin 900mg q8h to complete 2 days. - wounds are all very shallow, minimal concern for osteo at present time. - ok for midline when cultures negative x48 hours (tomorrow) - case management consult placed. - As tomorrow is the weekend, I have placed a PICC insertion for the morning. If cultures are negative, please place PICC. If they return positive, please do not place. Thank you for the consult, we will continue to follow. Rocco James MD [facility] ([facility]) M: [phone] O: [phone] F: [phone] Subjective Date of service: 02/22/19 Principal diagnosis: HF; afib Interval history: Remains short of breath. Afebrile. Normal white count. Objective - Exam Narrative Exam: Constitutional: Alert, cooperative. No acute distress Head, Ears, Nose: Normocephalic, atraumatic. External ears, nose normal Eyes: Conjunctivae/corneas clear. No icterus. No ptosis. Neck: Supple, no meningeal signs Oral: dentition fair, no thrush Cardiovascular: S1, S2 normal. Respiratory: Good air entry, b/l crackles GI: Soft, non-tender; bowel sounds normal. No peritoneal signs. Musculoskeletal: 2+ pedal edema, no cyanosis. Skin: No rash or abscess Hem/Lymphatic: No palpable cervical or supraclavicular nodes. No lymphangitis Psych: Mood ok. Affect normal Neurological: Awake, alert, oriented. No gross abnormality - Constitutional Vitals: Vital Signs Temp Pulse Resp BP Pulse Ox 98.8 F 65 20 151/65 97 02/22/19 08:00 02/22/19 10:00 02/22/19 10:00 02/22/19 09:16 02/22/19 08:19 Temperature -Last 24 Hours Temperature 98.8 F Temperature 98.5 F Temperature 98.3 F Temperature 98.6 F - Labs CBC & Chem 7: 02/21/19 04:54 02/22/19 03:55 Labs: Abnormal lab results 02/21/19 02/21/19 02/21/19 Range/Units 12:15 16:46 21:54 Potassium (3.6-5.0) mmol/L BUN (9-20) mg/dL Glucose (75-100) mg/dL POC Glucose 158 H 147 H 173 H (70-105) Calcium (8.4-10.2) mg/dL 02/22/19 02/22/19 02/22/19 Range/Units 03:55 08:35 12:17 Potassium 3.5 L (3.6-5.0) mmol/L BUN 27 H (9-20) mg/dL Glucose 133 H (75-100) mg/dL POC Glucose 123 H 180 H (70-105) Calcium 7.9 L (8.4-10.2) mg/dL
--- NOTE | 2019-02-22 13:13 | Progress Note ---
Assessment and Plan Cont present cardiac management, including IV diuretics, coreg, lisinopril, Eliquis. Replete K+ and f/u BMP and Mg in AM. Pt was noted to have 29 beat run NSVT this AM. Cardiac defibrillator is recommended in setting of ICMP and NSVT. Pt is currently agreeable to LifeVest and will plan to address AICD candidacy as OP with [place] cardiology. LifeVest ordered today. The patient has been seen in conjunction with Dr. Livingston who agrees with the assessment and plan of care. - Patient Problems (1) Acute HFrEF (heart failure with reduced ejection fraction) Current Visit: Yes Status: Acute (2) Ischemic cardiomyopathy Current Visit: Yes Status: Chronic (3) Atrial fibrillation Current Visit: Yes Status: Chronic (4) Acute respiratory failure Current Visit: Yes Status: Acute (5) Pneumonia Current Visit: Yes Status: Suspected Qualifiers: Lung location: unspecified part of lung (6) CAD (coronary artery disease) Current Visit: Yes Status: Chronic (7) History of coronary artery bypass graft Current Visit: Yes Status: Chronic (8) HTN (hypertension) Current Visit: Yes Status: Chronic (9) Diabetes Current Visit: Yes Status: Chronic (10) Bacteremia Current Visit: Yes Status: Acute (11) Sepsis Current Visit: Yes Status: Acute (12) NSVT (nonsustained ventricular tachycardia) Current Visit: Yes Status: Acute Subjective Date of service: 02/22/19 Principal diagnosis: HF; afib Interval history: pt resting in bed, states he is feeling better, BLE edema improving. in AFib on tele HR 50s - 60s, HR low 40s overnight, 29 beat run NSVT noted this morning, pt symptomatic. Objective Last Vital Signs Temp 98.8 F 02/22/19 08:00 Pulse 65 02/22/19 10:00 Resp 20 02/22/19 10:00 BP 151/65 02/22/19 09:16 Pulse Ox 97 02/22/19 08:19 - Physical Examination General: No Apparent Distress HEENT: Positive: PERRL, Normocephaly, Mucus Membranes Moist Neck: Positive: neck supple, trachea midline Cardiac: Positive: irregularly irregular, S1/S2 Lungs: Positive: Decreased Breath Sounds Neuro: Positive: Grossly Intact Abdomen: Negative: Tender Skin: Negative: Rash Musculoskeletal: No Pain Extremities: Present: +2 Edema (BLE) - Labs and Meds Comprehensive Metabolic Panel 02/22/19 Range/Units 03:55 Sodium 142 (137-145) mmol/L Potassium 3.5 L (3.6-5.0) mmol/L Chloride 102.3 (98-107) mmol/L Carbon Dioxide 26 (22-30) mmol/L BUN 27 H (9-20) mg/dL Creatinine 0.9 (0.8-1.5) mg/dL Glucose 133 H (75-100) mg/dL Calcium 7.9 L (8.4-10.2) mg/dL - Imaging and Cardiology EKG: report reviewed, image reviewed Echo: report reviewed ( EF 25-30%, dilated LV, dilated LA and RA, grade 2 diastolic dysfunction, mild to mod SC. ) AV and intraventricular conduction: right bundle branch block
[2019-02-22] MEDS ORDERED: POTASSIUM CHLORIDE ER 20 MEQ TAB PO NR (13:14)
--- NOTE | 2019-02-22 15:01 | Progress Note ---
Assessment and Plan Assessment and plan: Severe Sepsis, gram-positive cocci bacteremia - Patient is on IV ceftriaxone and clinidamycin - Blood culture grew Group B beta-hemolytic streptococci - ID recommend IV antibiotic (ceftriaxone) for 2 weeks - PICC line ordered Lactic acidosis - Resolved with fluids and antibiotics Acute on chronic combined systolic and diastolic CHF - Cardiology consulted - Patient is being treated for CHF exacerbation - Echo showed ejection fraction of 25-30%, was grad 2 diastolic dysfunction - patient is on carvedilol, lisinopril and eliquis - Patient needs lifevest Acute respiratory failure - due to the above - Patient is on Ventimask, will discuss with pulmonary to decrease and wean off if possible - Continue to monitor Atrial fibrillation - Rate is controlled, continue eliquis - Continue carvedilol Diabetes mellitus -Sliding scale insulin Obesity hypoventilation syndrome - Patient is on oxygen PVD; continue supportive care DVT prophylaxis - Continue eliquis Disposition - pending rehab placement History Interval history: Patient was seen and evaluated this morning, patient is breathing is getting better. patient is off oxygen. Hospitalist Physical - Physical exam Narrative exam: Patient is not in cardiopulmonary distress, patient is off oxygen The patient is obese. Vital signs as documented. Head exam is unremarkable. No scleral icterus . Neck is without jugular venous distension, thyromegaly, or carotid bruits. Lungs clear to auscultation bilaterally. Cardiac exam reveals irregular rate and Rhythm. Abdominal exam reveals normal bowel sounds, no masses, no organomegaly and no aortic enlargement. Extremities swelling and ulceration of bilateral LE. 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 No focal weakness. - Constitutional Vitals: Temp Pulse Resp BP Pulse Ox 98.8 F 65 20 151/65 97 02/22/19 08:00 02/22/19 10:00 02/22/19 10:00 02/22/19 09:16 02/22/19 08:19 General appearance: Present: no acute distress Results - Labs CBC & Chem 7: 02/21/19 04:54 02/22/19 03:55 Labs: Laboratory Last Values WBC 9.7 K/mm3 (4.5-11.0) 02/21/19 04:54 RBC 3.81 M/mm3 (3.65-5.03) 02/21/19 04:54 Hgb 10.9 gm/dl (11.8-15.2) L 02/21/19 04:54 Hct 33.2 % (35.5-45.6) L 02/21/19 04:54 MCV 87 fl (84-94) 02/21/19 04:54 MCH 29 pg (28-32) 02/21/19 04:54 MCHC 33 % (32-34) 02/21/19 04:54 RDW 15.8 % (13.2-15.2) H 02/21/19 04:54 Plt Count 153 K/mm3 (140-440) 02/21/19 04:54 Lymph % (Auto) 12.8 % (13.4-35.0) L 02/21/19 04:54 [place] % (Auto) 9.1 % (0.0-7.3) H 02/21/19 04:54 Eos % (Auto) 0.6 % (0.0-4.3) 02/21/19 04:54 Baso % (Auto) 0.2 % (0.0-1.8) 02/21/19 04:54 Lymph # 1.2 K/mm3 (1.2-5.4) 02/21/19 04:54 [place] # 0.9 K/mm3 (0.0-0.8) H 02/21/19 04:54 Eos # 0.1 K/mm3 (0.0-0.4) 02/21/19 04:54 Baso # 0.0 K/mm3 (0.0-0.1) 02/21/19 04:54 Seg Neutrophils % 77.3 % (40.0-70.0) H 02/21/19 04:54 Seg Neutrophils # 7.5 K/mm3 (1.8-7.7) 02/21/19 04:54 PT 14.1 Sec. (12.2-14.9) 02/18/19 Unknown INR 1.10 (0.87-1.13) 02/18/19 Unknown APTT 29.7 Sec. (24.2-36.6) 02/18/19 Unknown D-Dimer 2356.30 ng/mlDDU (0-234) H 02/18/19 Unknown POC ABG pH 7.424 (7.35-7.45) 02/18/19 15:15 POC ABG pCO2 36.7 (35-45) 02/18/19 15:15 POC ABG pO2 132 (80-105) H 02/18/19 15:15 POC ABG HCO3 24.0 (22-26 mml/L) 02/18/19 15:15 POC ABG Total CO2 25 (23-27mmol/L) 02/18/19 15:15 POC ABG O2 Sat 99 02/18/19 15:15 POC ABG Base Excess 0 ((-2) - (+3)mmol/L) 02/18/19 15:15 VBG pH 7.370 (7.320-7.420) 02/18/19 12:02 FiO2 35 % 02/18/19 15:15 Sodium 142 mmol/L (137-145) 02/22/19 03:55 Potassium 3.5 mmol/L (3.6-5.0) L 02/22/19 03:55 Chloride 102.3 mmol/L (98-107) 02/22/19 03:55 Carbon Dioxide 26 mmol/L (22-30) 02/22/19 03:55 Anion Gap 17 mmol/L 02/22/19 03:55 BUN 27 mg/dL (9-20) H 02/22/19 03:55 Creatinine 0.9 mg/dL (0.8-1.5) 02/22/19 03:55 Estimated GFR > 60 ml/min 02/22/19 03:55 BUN/Creatinine Ratio 30 % 02/22/19 03:55 Glucose 133 mg/dL (75-100) H 02/22/19 03:55 POC Glucose 223 (70-105) H 02/22/19 14:35 Hemoglobin A1c 8.3 % (4-6) H 02/18/19 23:49 Lactic Acid 1.90 mmol/L (0.7-2.0) 02/19/19 06:27 Calcium 7.9 mg/dL (8.4-10.2) L 02/22/19 03:55 Magnesium 1.80 mg/dL (1.7-2.3) 02/18/19 22:01 Total Bilirubin 0.40 mg/dL (0.1-1.2) 02/19/19 05:10 Direct Bilirubin < 0.2 mg/dL (0-0.2) 02/18/19 12:02 Indirect Bilirubin 0.2 mg/dL 02/18/19 12:02 AST 21 units/L (5-40) 02/19/19 05:10 ALT 16 units/L (7-56) 02/19/19 05:10 Alkaline Phosphatase 98 units/L (35-129) 02/19/19 05:10 Troponin T 0.013 ng/mL (0.00-0.029) 02/18/19 12:02 NT-Pro-B Natriuret Pep 540.1 pg/mL (0-900) 02/18/19 12:02 Total Protein 6.8 g/dL (6.3-8.2) 02/19/19 05:10 Albumin 3.6 g/dL (3.9-5) L 02/19/19 05:10 Albumin/Globulin Ratio 1.1 % 02/19/19 05:10 TSH 0.514 mlU/mL (0.270-4.200) 02/18/19 22:01 Free T4 1.30 ng/dL (0.76-1.46) 02/18/19 22:01 Urine Color Yellow (Yellow) 02/18/19 Unknown Urine Turbidity Clear (Clear) 02/18/19 Unknown Urine pH 6.0 (5.0-7.0) 02/18/19 Unknown Ur Specific [place] 1.020 (1.003-1.030) 02/18/19 Unknown Urine Protein >500 mg/dL (Negative) 02/18/19 Unknown Urine Glucose (UA) 150 mg/dL (Negative) 02/18/19 Unknown Urine Ketones Tr mg/dL (Negative) 02/18/19 Unknown Urine Blood Sm (Negative) 02/18/19 Unknown Urine Nitrite Neg (Negative) 02/18/19 Unknown Urine Bilirubin Neg (Negative) 02/18/19 Unknown Urine Urobilinogen 2.0 mg/dL (<2.0) 02/18/19 Unknown Ur Leukocyte Esterase Neg (Negative) 02/18/19 Unknown Urine WBC (Auto) 1.0 /HPF (0.0-6.0) 02/18/19 Unknown Urine RBC (Auto) 14.0 /HPF (0.0-6.0) 02/18/19 Unknown U Epithel Cells (Auto) 1.0 /HPF (0-13.0) 02/18/19 Unknown Active Medications - Current Medications Current Medications: Generic Name Dose Route Start Last Admin Trade Name Freq PRN Reason Stop Dose Admin Acetaminophen 650 mg 02/18/19 17:48 02/19/19 05:23 Tylenol PO 650 mg Q4H PRN Administration Pain MILD(1-3)/Fever >100.5/LARSON Albuterol 2.5 mg 02/18/19 17:48 02/19/19 20:45 Proventil IH 2.5 mg Q4HRT PRN Administration Shortness Of Breath Apixaban 5 mg 02/19/19 11:00 02/22/19 09:16 Eliquis PO 5 mg Q12HR CARMEN Administration Atorvastatin Calcium 20 mg 02/19/19 22:00 02/21/19 22:50 Lipitor PO 20 mg QHS CARMEN Administration Carvedilol 6.25 mg 02/19/19 22:00 02/22/19 09:16 Coreg PO 6.25 mg BID CARMEN Administration Dextrose 0 ml 02/18/19 22:27 D50w (25gm) Syringe IV Q30MIN PRN Hypoglycemia Furosemide 40 mg 02/19/19 11:00 02/22/19 06:12 Lasix IV Not Given 0600,1800 CAR[facility] Guaifenesin 10 ml 02/20/19 17:46 02/20/19 17:57 Guaifenesin Dm Syrup PO 10 ml Q4H PRN Administration Cough Clindamycin HCl 900 mg in 50 mls @ 100 mls/hr 02/20/19 18:00 02/22/19 09:17 Cleocin 900 Mg/50 Ml IV 100 mls/hr Q8H CARMEN Administration Protocol Ceftriaxone Sodium 2 gm in 100 mls @ 200 mls/hr 02/20/19 18:00 02/21/19 17:36 Rocephin/Ns 2 Gm/100 Ml IV 200 mls/hr Q24H CARMEN Administration Protocol Insulin Human Lispro 0 unit 02/19/19 07:30 02/22/19 12:50 Humalog SUB-Q 2 unit ACHS CARMEN Administration Protocol Lisinopril 10 mg 02/20/19 10:00 02/22/19 09:16 Zestril PO 10 mg QDAY CARMEN Administration Ondansetron HCl 4 mg 02/18/19 17:48 Zofran IV Q8H PRN Nausea And Vomiting Potassium Chloride 40 meq 02/22/19 13:14 K-Dur PO 02/22/19 18:00 ONCE NR Sodium Chloride 10 ml 02/18/19 22:00 02/22/19 09:17 Sodium Chloride Flush Syringe 10 Ml IV 10 ml BID CARMEN Administration Sodium Chloride 10 ml 02/18/19 17:48 Sodium Chloride Flush Syringe 10 Ml IV PRN PRN LINE FLUSH
[2019-02-22] MEDS: cefTRIAXone/NS 2 GM/100 ML 2 GM/100 ML BAG IV SCH (17:20)
[2019-02-23 05:06] LABS: BUN/Creatinine Ratio 26; Blood Urea Nitrogen 23 mg/dL (9-20); Calcium 7.6 mg/dL (8.4-10.2); Hemolysis Index 1
[2019-02-23] MEDS: FUROSEMIDE 40 MG/4 ML INJ IV SCH ×2 (07:01→17:52)
--- NOTE | 2019-02-23 09:18 | Progress Note ---
Assessment and Plan Assessment and plan: Severe Sepsis, gram-positive cocci bacteremia - Patient is on IV ceftriaxone and clinidamycin(for 2 days) - Blood culture grew Group B beta-hemolytic streptococci, repeat blood culture is negative - Entry Source is likely from the ulcer in the leg - ID recommend IV antibiotic (ceftriaxone) for 2 weeks - PICC line ordered Lactic acidosis - Resolved with fluids and antibiotics Acute on chronic combined systolic and diastolic CHF - Cardiology consulted - Patient is being treated for CHF exacerbation - Echo showed ejection fraction of 25-30%, was grad 2 diastolic dysfunction - patient is on carvedilol, lisinopril and eliquis - Patient get lifevest Acute respiratory failure - due to the above - Patient was on Ventimask, currently off for the last 2 days - Continue to monitor Atrial fibrillation - Rate is controlled, continue eliquis - patient was on carvedilol and held for now because of bradycardia HTN - on losartan Diabetes mellitus -Sliding scale insulin Obesity hypoventilation syndrome - Patient is on oxygen PVD; continue supportive care DVT prophylaxis - Continue eliquis Disposition - pending rehab placement History Interval history: Patient was seen and evaluated this morning, patient is breathing is getting better. patient is off oxygen. Tried to contact his Daughter Fabrice Espinoza @[phone] for the update about her father condition but she didn't scrap picker her phone. Hospitalist Physical - Physical exam Narrative exam: Patient is not in cardiopulmonary distress, patient is off oxygen The patient is obese. Vital signs as documented. Head exam is unremarkable. No scleral icterus . Neck is without jugular venous distension, thyromegaly, or carotid bruits. Lungs clear to auscultation bilaterally. Cardiac exam reveals irregular rate and Rhythm. Abdominal exam reveals normal bowel sounds, no masses, no organomegaly and no aortic enlargement. Extremities swelling and ulceration of bilateral LE. 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 No focal weakness. - Constitutional Vitals: Temp Pulse Resp BP Pulse Ox 98.4 F 85 18 153/64 97 02/23/19 00:03 02/23/19 02:28 02/23/19 02:28 02/23/19 02:28 02/23/19 08:49 General appearance: Present: no acute distress Results - Labs CBC & Chem 7: 02/21/19 04:54 02/23/19 04:17 Labs: Laboratory Last Values WBC 9.7 K/mm3 (4.5-11.0) 02/21/19 04:54 RBC 3.81 M/mm3 (3.65-5.03) 02/21/19 04:54 Hgb 10.9 gm/dl (11.8-15.2) L 02/21/19 04:54 Hct 33.2 % (35.5-45.6) L 02/21/19 04:54 MCV 87 fl (84-94) 02/21/19 04:54 MCH 29 pg (28-32) 02/21/19 04:54 MCHC 33 % (32-34) 02/21/19 04:54 RDW 15.8 % (13.2-15.2) H 02/21/19 04:54 Plt Count 153 K/mm3 (140-440) 02/21/19 04:54 Lymph % (Auto) 12.8 % (13.4-35.0) L 02/21/19 04:54 Franklin % (Auto) 9.1 % (0.0-7.3) H 02/21/19 04:54 Eos % (Auto) 0.6 % (0.0-4.3) 02/21/19 04:54 Baso % (Auto) 0.2 % (0.0-1.8) 02/21/19 04:54 Lymph # 1.2 K/mm3 (1.2-5.4) 02/21/19 04:54 Franklin # 0.9 K/mm3 (0.0-0.8) H 02/21/19 04:54 Eos # 0.1 K/mm3 (0.0-0.4) 02/21/19 04:54 Baso # 0.0 K/mm3 (0.0-0.1) 02/21/19 04:54 Seg Neutrophils % 77.3 % (40.0-70.0) H 02/21/19 04:54 Seg Neutrophils # 7.5 K/mm3 (1.8-7.7) 02/21/19 04:54 PT 14.1 Sec. (12.2-14.9) 02/18/19 Unknown INR 1.10 (0.87-1.13) 02/18/19 Unknown APTT 29.7 Sec. (24.2-36.6) 02/18/19 Unknown D-Dimer 2356.30 ng/mlDDU (0-234) H 02/18/19 Unknown POC ABG pH 7.424 (7.35-7.45) 02/18/19 15:15 POC ABG pCO2 36.7 (35-45) 02/18/19 15:15 POC ABG pO2 132 (80-105) H 02/18/19 15:15 POC ABG HCO3 24.0 (22-26 mml/L) 02/18/19 15:15 POC ABG Total CO2 25 (23-27mmol/L) 02/18/19 15:15 POC ABG O2 Sat 99 02/18/19 15:15 POC ABG Base Excess 0 ((-2) - (+3)mmol/L) 02/18/19 15:15 VBG pH 7.370 (7.320-7.420) 02/18/19 12:02 FiO2 35 % 02/18/19 15:15 Sodium 140 mmol/L (137-145) 02/23/19 04:17 Potassium 3.6 mmol/L (3.6-5.0) 02/23/19 04:17 Chloride 102.2 mmol/L (98-107) 02/23/19 04:17 Carbon Dioxide 28 mmol/L (22-30) 02/23/19 04:17 Anion Gap 13 mmol/L 02/23/19 04:17 BUN 23 mg/dL (9-20) H 02/23/19 04:17 Creatinine 0.9 mg/dL (0.8-1.5) 02/23/19 04:17 Estimated GFR > 60 ml/min 02/23/19 04:17 BUN/Creatinine Ratio 26 % 02/23/19 04:17 Glucose 149 mg/dL (75-100) H 02/23/19 04:17 POC Glucose 170 (70-105) H 02/23/19 08:29 Hemoglobin A1c 8.3 % (4-6) H 02/18/19 23:49 Lactic Acid 1.90 mmol/L (0.7-2.0) 02/19/19 06:27 Calcium 7.6 mg/dL (8.4-10.2) L 02/23/19 04:17 Magnesium 2.00 mg/dL (1.7-2.3) 02/23/19 04:17 Total Bilirubin 0.40 mg/dL (0.1-1.2) 02/19/19 05:10 Direct Bilirubin < 0.2 mg/dL (0-0.2) 02/18/19 12:02 Indirect Bilirubin 0.2 mg/dL 02/18/19 12:02 AST 21 units/L (5-40) 02/19/19 05:10 ALT 16 units/L (7-56) 02/19/19 05:10 Alkaline Phosphatase 98 units/L (35-129) 02/19/19 05:10 Troponin T 0.013 ng/mL (0.00-0.029) 02/18/19 12:02 NT-Pro-B Natriuret Pep 540.1 pg/mL (0-900) 02/18/19 12:02 Total Protein 6.8 g/dL (6.3-8.2) 02/19/19 05:10 Albumin 3.6 g/dL (3.9-5) L 02/19/19 05:10 Albumin/Globulin Ratio 1.1 % 02/19/19 05:10 TSH 0.514 mlU/mL (0.270-4.200) 02/18/19 22:01 Free T4 1.30 ng/dL (0.76-1.46) 02/18/19 22:01 Urine Color Yellow (Yellow) 02/18/19 Unknown Urine Turbidity Clear (Clear) 02/18/19 Unknown Urine pH 6.0 (5.0-7.0) 02/18/19 Unknown Ur Specific Mason 1.020 (1.003-1.030) 02/18/19 Unknown Urine Protein >500 mg/dL (Negative) 02/18/19 Unknown Urine Glucose (UA) 150 mg/dL (Negative) 02/18/19 Unknown Urine Ketones Tr mg/dL (Negative) 02/18/19 Unknown Urine Blood Sm (Negative) 02/18/19 Unknown Urine Nitrite Neg (Negative) 02/18/19 Unknown Urine Bilirubin Neg (Negative) 02/18/19 Unknown Urine Urobilinogen 2.0 mg/dL (<2.0) 02/18/19 Unknown Ur Leukocyte Esterase Neg (Negative) 02/18/19 Unknown Urine WBC (Auto) 1.0 /HPF (0.0-6.0) 02/18/19 Unknown Urine RBC (Auto) 14.0 /HPF (0.0-6.0) 02/18/19 Unknown U Epithel Cells (Auto) 1.0 /HPF (0-13.0) 02/18/19 Unknown Active Medications - Current Medications Current Medications: Generic Name Dose Route Start Last Admin Trade Name Freq PRN Reason Stop Dose Admin Acetaminophen 650 mg 02/18/19 17:48 02/19/19 05:23 Tylenol PO 650 mg Q4H PRN Administration Pain MILD(1-3)/Fever >100.5/LARSON Albuterol 2.5 mg 02/18/19 17:48 02/19/19 20:45 Proventil IH 2.5 mg Q4HRT PRN Administration Shortness Of Breath Apixaban 5 mg 02/19/19 11:00 02/22/19 23:03 Eliquis PO 5 mg Q12HR CARMEN Administration Atorvastatin Calcium 20 mg 02/19/19 22:00 02/22/19 23:03 Lipitor PO 20 mg QHS CARMEN Administration Carvedilol 6.25 mg 02/19/19 22:00 02/22/19 22:54 Coreg PO Not Given BID CARMEN Dextrose 0 ml 02/18/19 22:27 D50w (25gm) Syringe IV Q30MIN PRN Hypoglycemia Furosemide 40 mg 02/19/19 11:00 02/23/19 07:01 Lasix IV 40 mg 0600,1800 ACRMEN Administration Guaifenesin 10 ml 02/20/19 17:46 02/20/19 17:57 Guaifenesin Dm Syrup PO 10 ml Q4H PRN Administration Cough Ceftriaxone Sodium 2 gm in 100 mls @ 200 mls/hr 02/20/19 18:00 02/22/19 17:20 Rocephin/Ns 2 Gm/100 Ml IV 200 mls/hr Q24H CARMEN Administration Protocol Insulin Human Lispro 0 unit 02/19/19 07:30 02/22/19 23:04 Humalog SUB-Q 4 unit ACHS CARMEN Administration Protocol Lisinopril 10 mg 02/20/19 10:00 02/22/19 09:16 Zestril PO 10 mg QDAY CARMEN Administration Losartan Potassium 100 mg 02/23/19 10:00 Cozaar PO QDAY CARMEN Ondansetron HCl 4 mg 02/18/19 17:48 Zofran IV Q8H PRN Nausea And Vomiting Sodium Chloride 10 ml 02/18/19 22:00 02/22/19 23:04 Sodium Chloride Flush Syringe 10 Ml IV 10 ml BID CARMEN Administration Sodium Chloride 10 ml 02/18/19 17:48 Sodium Chloride Flush Syringe 10 Ml IV PRN PRN LINE FLUSH
[2019-02-23] MEDS: INSULIN LISPRO 100 UNIT/ML SUB-Q SCH ×4 (09:41→22:37)
[2019-02-23] MEDS: APIXABAN 5 MG TAB PO SCH ×2 (11:40→22:37)
[2019-02-23] MEDS: carvediloL 6.25 MG TAB PO SCH ×2 (11:42→22:20)
[2019-02-23] MEDS: LISINOPRIL 10 MG TAB PO SCH (11:43)
[2019-02-23] MEDS: LOSARTAN 50 MG TAB PO SCH (11:43)
--- NOTE | 2019-02-23 12:53 | Progress Note ---
Assessment and Plan The patient's cardiac status is improving. Continue current management. The patient has been seen in conjunction with Dr. Humphrey, who agrees with the assessment and plan. - Patient Problems (1) Acute HFrEF (heart failure with reduced ejection fraction) Current Visit: Yes Status: Acute (2) Acute respiratory failure Current Visit: Yes Status: Acute (3) Bacteremia Current Visit: Yes Status: Acute (4) Sepsis Current Visit: Yes Status: Acute (5) Atrial fibrillation Current Visit: Yes Status: Chronic (6) CAD (coronary artery disease) Current Visit: Yes Status: Chronic (7) Cardiomyopathy Current Visit: Yes Status: Chronic (8) HTN (hypertension) Current Visit: Yes Status: Chronic (9) History of coronary artery bypass graft Current Visit: Yes Status: Chronic (10) Pneumonia Current Visit: Yes Status: Suspected Qualifiers: Lung location: unspecified part of lung Subjective Date of service: 02/23/19 Principal diagnosis: HF; afib Interval history: The patient is lying in bed in NAD. Reports feeling better. Telemetry reviewed - afib/flutter in 60s. Objective Last Vital Signs Temp 97.9 F 02/23/19 06:01 Pulse 58 L 02/23/19 11:43 Resp 18 02/23/19 06:01 BP 167/70 02/23/19 11:43 Pulse Ox 97 02/23/19 08:49 - Physical Examination General: No Apparent Distress HEENT: Positive: PERRL, Normocephaly, Mucus Membranes Moist Neck: Positive: neck supple, trachea midline Cardiac: Positive: Reg Rate and Rhythm Lungs: Positive: Normal Exam Neuro: Positive: Grossly Intact Abdomen: Positive: Unremarkable. Negative: Tender /Rectal: Other (deferred) Skin: Positive: Clear. Negative: Rash Musculoskeletal: No Pain Extremities: Present: +1 Edema - Labs and Meds Comprehensive Metabolic Panel 02/23/19 Range/Units 04:17 Sodium 140 (137-145) mmol/L Potassium 3.6 (3.6-5.0) mmol/L Chloride 102.2 (98-107) mmol/L Carbon Dioxide 28 (22-30) mmol/L BUN 23 H (9-20) mg/dL Creatinine 0.9 (0.8-1.5) mg/dL Glucose 149 H (75-100) mg/dL Calcium 7.6 L (8.4-10.2) mg/dL - Imaging and Cardiology EKG: report reviewed, image reviewed Echo: report reviewed ( EF 25-30%, dilated LV, dilated LA and RA, grade 2 diastolic dysfunction, mild to mod NE. ) - Telemetry EKG Rhythm: Atrial Flutter AV and intraventricular conduction: right bundle branch block
--- NOTE | 2019-02-23 16:07 | Progress Note ---
Assessment and Plan Cultures: 02/18 blood culture - 07/19 GAS A/P: 83 yo M PMHx Dm2, HTN, PVD, CAD s/p CABG admitted with CHF exacerbation and found to have GAS bacteremia. 1. Acute sepsis - secondary to GAS bacteremia. Present with fever and leukocytosis. 2. GAS bacteremia - Source likely nurmeous shallow wounds. Recommend narrowing coverage from Zosyn to ceftriaxone and clindamycin (clinda for 2 days). will need 2 weeks of therapy as echo was not evident for vegetations. 3. DM2 - recommend tight glycemic control for best immune function 4. Acute CHF exacerbation Recs: - Continue ceftriaxone 2g q24h to complete 2 weeks from first negative culture. - wounds are all very shallow, minimal concern for osteo at present time. - ok for midline - case management consult placed. - ok for discharge from infectious perspective. Thank you for the consult, we will sign off. Please call with questions Rocco James MD [facility], [place] [facility] ([facility]) M: [phone] O: [phone] F: [phone] Subjective Date of service: 02/23/19 Principal diagnosis: HF; afib Interval history: Remains short of breath. Afebrile. Normal white count. Objective - Exam Narrative Exam: Constitutional: Alert, cooperative. No acute distress Head, Ears, Nose: Normocephalic, atraumatic. External ears, nose normal Eyes: Conjunctivae/corneas clear. No icterus. No ptosis. Neck: Supple, no meningeal signs Oral: dentition fair, no thrush Cardiovascular: S1, S2 normal. Respiratory: Good air entry, b/l crackles GI: Soft, non-tender; bowel sounds normal. No peritoneal signs. Musculoskeletal: 2+ pedal edema, no cyanosis. Skin: No rash or abscess Hem/Lymphatic: No palpable cervical or supraclavicular nodes. No lymphangitis Psych: Mood ok. Affect normal Neurological: Awake, alert, oriented. No gross abnormality - Constitutional Vitals: Vital Signs Temp Pulse Resp BP Pulse Ox 97.9 F 58 L 18 167/70 97 02/23/19 06:01 02/23/19 11:43 02/23/19 06:01 02/23/19 11:43 02/23/19 08:49 Temperature -Last 24 Hours Temperature 97.9 F Temperature 98.4 F Temperature 98.0 F - Labs CBC & Chem 7: 02/21/19 04:54 02/23/19 04:17 Labs: Abnormal lab results 02/22/19 02/22/19 02/23/19 Range/Units 17:09 20:39 04:17 BUN 23 H (9-20) mg/dL Glucose 149 H (75-100) mg/dL POC Glucose 208 H 255 H (70-105) Calcium 7.6 L (8.4-10.2) mg/dL 02/23/19 02/23/19 Range/Units 08:29 11:46 BUN (9-20) mg/dL Glucose (75-100) mg/dL POC Glucose 170 H 211 H (70-105) Calcium (8.4-10.2) mg/dL
[2019-02-23] MEDS: cefTRIAXone/NS 2 GM/100 ML 2 GM/100 ML BAG IV SCH (17:52)
[2019-02-23] MEDS: guaiFENesin DM 200/20 MG ORAL LIQD 10 ML PO PRN (19:43)
[2019-02-23] MEDS: ACETAMINOPHEN 325 MG TAB PO PRN (20:22)
[2019-02-24] MEDS ORDERED: hydrALAZINE 20 MG/1 ML INJ IV PRN (06:12)
[2019-02-24] MEDS: FUROSEMIDE 40 MG/4 ML INJ IV SCH ×2 (06:36→18:18)
[2019-02-24] MEDS: hydrALAZINE 20 MG/1 ML INJ IV PRN ×2 (06:36→18:18)
[2019-02-24] MEDS: INSULIN LISPRO 100 UNIT/ML SUB-Q SCH ×4 (08:00→23:08)
[2019-02-24] MEDS ORDERED: carvediloL 6.25 MG TAB PO SCH (08:15)
[2019-02-24] MEDS ORDERED: hydrALAZINE 25 MG TAB PO SCH (09:00)
--- NOTE | 2019-02-24 09:31 | Progress Note ---
Assessment and Plan Patient appears to be nearly euvolemic. Will obtain chest x-ray and possibly transition to PO Lasix. Elevated BPs noted - will increase hydralazine. Avoid AV ioana blocking agents d/t bradycardia. Continue other cardiac management for now. The patient has been seen in conjunction with Dr. Humphrey, who agrees with the assessment and plan. - Patient Problems (1) Acute HFrEF (heart failure with reduced ejection fraction) Current Visit: Yes Status: Acute (2) Acute respiratory failure Current Visit: Yes Status: Acute (3) Bacteremia Current Visit: Yes Status: Acute (4) Sepsis Current Visit: Yes Status: Acute (5) Atrial fibrillation Current Visit: Yes Status: Chronic (6) CAD (coronary artery disease) Current Visit: Yes Status: Chronic (7) Cardiomyopathy Current Visit: Yes Status: Chronic (8) HTN (hypertension) Current Visit: Yes Status: Chronic (9) History of coronary artery bypass graft Current Visit: Yes Status: Chronic (10) Pneumonia Current Visit: Yes Status: Suspected Qualifiers: Lung location: unspecified part of lung Subjective Date of service: 02/24/19 Principal diagnosis: HF; afib Interval history: The patient is lying in bed in NAD. He has no cardiac complaints. LifeVest in place. Telemetry reviewed - afib in 60s with intermittent bradycardia (rates in 40s). Objective Last Vital Signs Temp 98.0 F 02/24/19 07:51 Pulse 49 L 02/24/19 04:05 Resp 18 02/24/19 07:51 BP 180/73 02/24/19 07:51 Pulse Ox 99 02/24/19 04:05 V - Physical Examination General: No Apparent Distress HEENT: Positive: PERRL, Normocephaly, Mucus Membranes Moist Neck: Positive: neck supple, trachea midline Cardiac: Positive: irregularly irregular Lungs: Positive: Rhonchi Neuro: Positive: Grossly Intact Abdomen: Positive: Unremarkable. Negative: Tender /Rectal: Other (deferred) Skin: Positive: Clear, Wound (b/l foot wounds - wrapped in gauze. BLE skin wrinkled and chronically discolored ). Negative: Rash Musculoskeletal: Decreased Range of Motion, No Pain Extremities: Present: normal - Imaging and Cardiology EKG: report reviewed, image reviewed Echo: report reviewed ( EF 25-30%, dilated LV, dilated LA and RA, grade 2 diastolic dysfunction, mild to mod NV. ) - Telemetry EKG Rhythm: Atrial Fibrillation AV and intraventricular conduction: right bundle branch block
--- NOTE | 2019-02-24 10:07 | XRay Report ---
CHEST 1 VIEW INDICATION / CLINICAL INFORMATION: Evaluate CHF. Dyspnea. COMPARISON: None available. FINDINGS: SUPPORT DEVICES: None. HEART / MEDIASTINUM: No significant abnormality. LUNGS / PLEURA: No significant interstitial edema. Small left pleural effusion. Signer Name: Daniel Orozco MD Signed: 02/24/2019 10:02 AM Workstation Name: [id number]
[2019-02-24] MEDS: LOSARTAN 50 MG TAB PO SCH (11:08)
[2019-02-24] MEDS: carvediloL 3.125 MG TAB PO SCH ×2 (11:08→23:09)
[2019-02-24] MEDS: APIXABAN 5 MG TAB PO SCH ×2 (11:08→23:08)
--- NOTE | 2019-02-24 11:54 | Progress Note ---
Assessment and Plan Assessment and plan: Severe Sepsis with beta-hemolytic strep group A bacteremia - Patient is on IV ceftriaxone to be completed for 2 weeks post negative blood culture of 02/21 - Blood culture on 02/18 grew Group B beta-hemolytic streptococci, repeat blood culture on 02/21 is negative - Entry Source is likely from the leg ulcers - PICC line placement ordered - ID signed off Acute on chronic combined systolic and diastolic CHF - Improving, cont IV Lasix, BB and ARB - Echo showed ejection fraction of 25-30% with grade 2 diastolic dysfunction - lifevest in place - Cardiology following Acute respiratory failure with hypoxia - Improved. Off Ventimask and currently saturating well on NC - Continue to monitor Hypertensive urgency - Antihypertensives adjusted - Monitor and adjust meds as needed Atrial fibrillation - Rate bradycardic, Coreg dose reduced - Continue oral anticoagulation with Eliquis - Continue telemetry monitoring Lactic acidosis - Resolved with fluids and antibiotics DM2 -Stable -Continue SSI and Lantus Obesity hypoventilation syndrome - Continue oxygen supplementation as needed PVD/Chronic venous stasis with ulcers -Continue wound care DVT prophylaxis - Continue eliquis Disposition: - For discharge when medically stable and cleared by cardiology. Rehab placement pending History Interval history: Patient reports feeling better. He denied chest pain or shortness of breath. Hospitalist Physical - Constitutional Vitals: Temp Pulse Resp BP Pulse Ox 98.0 F 49 L 18 180/73 99 02/24/19 07:51 02/24/19 11:08 02/24/19 07:51 02/24/19 11:08 02/24/19 04:05 General appearance: Present: no acute distress, obese - EENT Eyes: Present: PERRL, EOM intact ENT: hearing intact, clear oral mucosa - Neck Neck: Present: supple - Respiratory Respiratory effort: normal Respiratory: bilateral: rhonchi - Cardiovascular Rhythm: regular Heart Sounds: Present: S1 & S2 - Extremities Extremity abnormal: edema (with dressings noted over both feet) - Abdominal General gastrointestinal: soft, non-tender, normal bowel sounds - Integumentary Integumentary: Present: pale - Psychiatric Psychiatric: cooperative - Neurologic Neurologic: moves all extremities Results - Labs CBC & Chem 7: 02/21/19 04:54 02/23/19 04:17 Labs: Laboratory Last Values WBC 9.7 K/mm3 (4.5-11.0) 02/21/19 04:54 RBC 3.81 M/mm3 (3.65-5.03) 02/21/19 04:54 Hgb 10.9 gm/dl (11.8-15.2) L 02/21/19 04:54 Hct 33.2 % (35.5-45.6) L 02/21/19 04:54 MCV 87 fl (84-94) 02/21/19 04:54 MCH 29 pg (28-32) 02/21/19 04:54 MCHC 33 % (32-34) 02/21/19 04:54 RDW 15.8 % (13.2-15.2) H 02/21/19 04:54 Plt Count 153 K/mm3 (140-440) 02/21/19 04:54 Lymph % (Auto) 12.8 % (13.4-35.0) L 02/21/19 04:54 Carver % (Auto) 9.1 % (0.0-7.3) H 02/21/19 04:54 Eos % (Auto) 0.6 % (0.0-4.3) 02/21/19 04:54 Baso % (Auto) 0.2 % (0.0-1.8) 02/21/19 04:54 Lymph # 1.2 K/mm3 (1.2-5.4) 02/21/19 04:54 Carver # 0.9 K/mm3 (0.0-0.8) H 02/21/19 04:54 Eos # 0.1 K/mm3 (0.0-0.4) 02/21/19 04:54 Baso # 0.0 K/mm3 (0.0-0.1) 02/21/19 04:54 Seg Neutrophils % 77.3 % (40.0-70.0) H 02/21/19 04:54 Seg Neutrophils # 7.5 K/mm3 (1.8-7.7) 02/21/19 04:54 PT 14.1 Sec. (12.2-14.9) 02/18/19 Unknown INR 1.10 (0.87-1.13) 02/18/19 Unknown APTT 29.7 Sec. (24.2-36.6) 02/18/19 Unknown D-Dimer 2356.30 ng/mlDDU (0-234) H 02/18/19 Unknown POC ABG pH 7.424 (7.35-7.45) 02/18/19 15:15 POC ABG pCO2 36.7 (35-45) 02/18/19 15:15 POC ABG pO2 132 (80-105) H 02/18/19 15:15 POC ABG HCO3 24.0 (22-26 mml/L) 02/18/19 15:15 POC ABG Total CO2 25 (23-27mmol/L) 02/18/19 15:15 POC ABG O2 Sat 99 02/18/19 15:15 POC ABG Base Excess 0 ((-2) - (+3)mmol/L) 02/18/19 15:15 VBG pH 7.370 (7.320-7.420) 02/18/19 12:02 FiO2 35 % 02/18/19 15:15 Sodium 140 mmol/L (137-145) 02/23/19 04:17 Potassium 3.6 mmol/L (3.6-5.0) 02/23/19 04:17 Chloride 102.2 mmol/L (98-107) 02/23/19 04:17 Carbon Dioxide 28 mmol/L (22-30) 02/23/19 04:17 Anion Gap 13 mmol/L 02/23/19 04:17 BUN 23 mg/dL (9-20) H 02/23/19 04:17 Creatinine 0.9 mg/dL (0.8-1.5) 02/23/19 04:17 Estimated GFR > 60 ml/min 02/23/19 04:17 BUN/Creatinine Ratio 26 % 02/23/19 04:17 Glucose 149 mg/dL (75-100) H 02/23/19 04:17 POC Glucose 152 (70-105) H 02/24/19 07:56 Hemoglobin A1c 8.3 % (4-6) H 02/18/19 23:49 Lactic Acid 1.90 mmol/L (0.7-2.0) 02/19/19 06:27 Calcium 7.6 mg/dL (8.4-10.2) L 02/23/19 04:17 Magnesium 2.00 mg/dL (1.7-2.3) 02/23/19 04:17 Total Bilirubin 0.40 mg/dL (0.1-1.2) 02/19/19 05:10 Direct Bilirubin < 0.2 mg/dL (0-0.2) 02/18/19 12:02 Indirect Bilirubin 0.2 mg/dL 02/18/19 12:02 AST 21 units/L (5-40) 02/19/19 05:10 ALT 16 units/L (7-56) 02/19/19 05:10 Alkaline Phosphatase 98 units/L (35-129) 02/19/19 05:10 Troponin T 0.013 ng/mL (0.00-0.029) 02/18/19 12:02 NT-Pro-B Natriuret Pep 540.1 pg/mL (0-900) 02/18/19 12:02 Total Protein 6.8 g/dL (6.3-8.2) 02/19/19 05:10 Albumin 3.6 g/dL (3.9-5) L 02/19/19 05:10 Albumin/Globulin Ratio 1.1 % 02/19/19 05:10 TSH 0.514 mlU/mL (0.270-4.200) 02/18/19 22:01 Free T4 1.30 ng/dL (0.76-1.46) 02/18/19 22:01 Urine Color Yellow (Yellow) 02/18/19 Unknown Urine Turbidity Clear (Clear) 02/18/19 Unknown Urine pH 6.0 (5.0-7.0) 02/18/19 Unknown Ur Specific [place] 1.020 (1.003-1.030) 02/18/19 Unknown Urine Protein >500 mg/dL (Negative) 02/18/19 Unknown Urine Glucose (UA) 150 mg/dL (Negative) 02/18/19 Unknown Urine Ketones Tr mg/dL (Negative) 02/18/19 Unknown Urine Blood Sm (Negative) 02/18/19 Unknown Urine Nitrite Neg (Negative) 02/18/19 Unknown Urine Bilirubin Neg (Negative) 02/18/19 Unknown Urine Urobilinogen 2.0 mg/dL (<2.0) 02/18/19 Unknown Ur Leukocyte Esterase Neg (Negative) 02/18/19 Unknown Urine WBC (Auto) 1.0 /HPF (0.0-6.0) 02/18/19 Unknown Urine RBC (Auto) 14.0 /HPF (0.0-6.0) 02/18/19 Unknown U Epithel Cells (Auto) 1.0 /HPF (0-13.0) 02/18/19 Unknown Active Medications - Current Medications Current Medications: Generic Name Dose Route Start Last Admin Trade Name Freq PRN Reason Stop Dose Admin Acetaminophen 650 mg 02/18/19 17:48 02/23/19 20:22 Tylenol PO 650 mg Q4H PRN Administration Pain MILD(1-3)/Fever >100.5/LARSON Albuterol 2.5 mg 02/18/19 17:48 02/19/19 20:45 Proventil IH 2.5 mg Q4HRT PRN Administration Shortness Of Breath Apixaban 5 mg 02/19/19 11:00 02/24/19 11:08 Eliquis PO 5 mg Q12HR CARMEN Administration Atorvastatin Calcium 20 mg 02/19/19 22:00 02/23/19 22:37 Lipitor PO 20 mg QHS CARMEN Administration Carvedilol 3.125 mg 02/24/19 10:00 02/24/19 11:08 Coreg PO 3.125 mg BID CARMEN Administration Dextrose 0 ml 02/18/19 22:27 D50w (25gm) Syringe IV Q30MIN PRN Hypoglycemia Furosemide 40 mg 02/19/19 11:00 02/24/19 06:36 Lasix IV 40 mg 0600,1800 CARMEN Administration Guaifenesin 10 ml 02/20/19 17:46 02/23/19 19:43 Guaifenesin Dm Syrup PO 10 ml Q4H PRN Administration Cough Hydralazine HCl 10 mg 02/24/19 06:16 02/24/19 06:36 Apresoline IV 10 mg Q6H PRN Administration Blood Pressure Hydralazine HCl 100 mg 02/24/19 14:00 Apresoline PO TID CARMEN Ceftriaxone Sodium 2 gm in 100 mls @ 200 mls/hr 02/20/19 18:00 02/23/19 17:52 Rocephin/Ns 2 Gm/100 Ml IV 200 mls/hr Q24H CARMEN Administration Protocol Insulin Human Lispro 0 unit 02/19/19 07:30 02/24/19 08:00 Humalog SUB-Q 2 unit ACHS CARMEN Administration Protocol Losartan Potassium 100 mg 02/23/19 10:00 02/24/19 11:08 Cozaar PO 100 mg QDAY CARMEN Administration Ondansetron HCl 4 mg 02/18/19 17:48 Zofran IV Q8H PRN Nausea And Vomiting Sodium Chloride 10 ml 02/18/19 22:00 02/24/19 11:09 Sodium Chloride Flush Syringe 10 Ml IV 10 ml BID CARMEN Administration Sodium Chloride 10 ml 02/18/19 17:48 Sodium Chloride Flush Syringe 10 Ml IV PRN PRN LINE FLUSH
[2019-02-24] MEDS: hydrALAZINE 100 MG TAB PO SCH ×2 (13:04→20:32)
[2019-02-24] MEDS: cefTRIAXone/NS 2 GM/100 ML 2 GM/100 ML BAG IV SCH (18:18)
[2019-02-24] MEDS: ACETAMINOPHEN 325 MG TAB PO PRN (18:18)
[2019-02-24] MEDS: INSULIN GLARGINE 100 UNITS/ML SUB-Q SCH (23:08)
[2019-02-25] MEDS: FUROSEMIDE 40 MG/4 ML INJ IV SCH ×2 (06:42→18:51)
[2019-02-25] MEDS: INSULIN LISPRO 100 UNIT/ML SUB-Q SCH ×4 (08:46→22:11)
[2019-02-25] MEDS: LOSARTAN 50 MG TAB PO SCH (09:40)
[2019-02-25] MEDS: hydrALAZINE 100 MG TAB PO SCH ×3 (09:40→20:47)
[2019-02-25] MEDS: APIXABAN 5 MG TAB PO SCH ×2 (09:40→22:10)
[2019-02-25] MEDS: carvediloL 3.125 MG TAB PO SCH ×2 (09:40→22:10)
--- NOTE | 2019-02-25 12:35 | Progress Note ---
Assessment and Plan Cont present cardiac management. LifeVest in place. No BB due to h/o AFib with SVR. The patient has been seen in conjunction with Dr. Orr who agrees with the assessment and plan of care. - Patient Problems (1) Acute HFrEF (heart failure with reduced ejection fraction) Current Visit: Yes Status: Acute (2) Ischemic cardiomyopathy Current Visit: Yes Status: Chronic (3) Atrial fibrillation Current Visit: Yes Status: Chronic (4) Acute respiratory failure Current Visit: Yes Status: Acute (5) Pneumonia Current Visit: Yes Status: Suspected Qualifiers: Lung location: unspecified part of lung (6) CAD (coronary artery disease) Current Visit: Yes Status: Chronic (7) History of coronary artery bypass graft Current Visit: Yes Status: Chronic (8) HTN (hypertension) Current Visit: Yes Status: Chronic (9) Diabetes Current Visit: Yes Status: Chronic (10) Bacteremia Current Visit: Yes Status: Acute (11) Sepsis Current Visit: Yes Status: Acute (12) NSVT (nonsustained ventricular tachycardia) Current Visit: Yes Status: Acute (13) Healing wound present on both lower extremities Current Visit: Yes Status: Acute Subjective Date of service: 02/25/19 Principal diagnosis: HF; afib Interval history: pt resting in bed, states he is feeling better, BLE edema improving. in AFib on tele HR 70s - 80s. Objective Last Vital Signs Temp 97.9 F 02/25/19 11:22 Pulse 76 02/25/19 11:22 Resp 18 02/25/19 11:22 BP 112/61 02/25/19 11:22 Pulse Ox 96 02/25/19 11:22 - Physical Examination General: No Apparent Distress HEENT: Positive: PERRL, Normocephaly, Mucus Membranes Moist Neck: Positive: neck supple, trachea midline Cardiac: Positive: irregularly irregular, S1/S2 Lungs: Positive: Decreased Breath Sounds Neuro: Positive: Grossly Intact Abdomen: Positive: Unremarkable. Negative: Tender /Rectal: Other (deferred) Skin: Positive: Wound (b/l foot wounds - wrapped in gauze. BLE skin wrinkled and chronically discolored ). Negative: Rash Musculoskeletal: Decreased Range of Motion, No Pain Extremities: Present: normal - Imaging and Cardiology EKG: report reviewed, image reviewed Echo: report reviewed ( EF 25-30%, dilated LV, dilated LA and RA, grade 2 diastolic dysfunction, mild to mod [place]. ) AV and intraventricular conduction: right bundle branch block
--- NOTE | 2019-02-25 14:26 | Progress Note ---
Assessment and Plan Assessment and plan: - Continue ceftriaxone 2g q24h to complete 2 weeks from first negative culture. 83-year-old man who was brought to the hospital for shortness of breath and chills. Acute sepsis, group A strep bacteremia ID input appreciated, status post midline to continue Rocephin x2 weeks from after first negative culture, first negative culture was on 02/21, therefore should continue antibiotics until March 07. 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 Meds per cardiology, continue IV Lasix. Acute respiratory failure with hypoxia Continue oxygen by nasal cannula Hypertensive urgency BP meds adjusted Atrial fibrillation with hypercoagulable state Patient was bradycardic on Coreg dose was reduced. Continue Eliquis Type 2 diabetes Continue basal and bolus insulins. Peripheral venous stasis, chronic stasis ulcers Continue wound care DVT prophylaxis; patient is fully anticoagulated Disposition; awaiting rehab placement, has been difficult to find placement that will accept the patient with a LifeVest. Pending History Interval history: Review of systems Constitutional: No fevers, no malaise, no joint pains CVS: No chest pain, shortness of breath is improving, pedal edema is improving GI: No abdominal pain, no diarrhea, no vomiting, no constipation Respiratory: No shortness of breath, no wheezing, no coughing Hospitalist Physical - Physical exam Narrative exam: General.: Appears well, no distress, nontoxic HEENT: Moist mucous membranes, extraocular muscles intact, no lymphadenopathy Neck: supple Cardiac: S1-S2 heard Lungs: clear to auscultation bilaterally Abdomen: soft , nontender, nondistended, bowel sounds positive Extremities: Lower extremity chronic skin changes and ulcers consistent with venous stasis. Skin: no rash or lesions Neurologic: no gross focal deficits Psych: calm, and cooperative - Constitutional Vitals: Temp Pulse Resp BP Pulse Ox 97.9 F 76 18 112/61 96 02/25/19 11:22 02/25/19 11:22 02/25/19 11:22 02/25/19 11:22 02/25/19 11:22 General appearance: Present: no acute distress, obese Results - Labs CBC & Chem 7: 02/21/19 04:54 02/23/19 04:17 Labs: Laboratory Last Values WBC 9.7 K/mm3 (4.5-11.0) 02/21/19 04:54 RBC 3.81 M/mm3 (3.65-5.03) 02/21/19 04:54 Hgb 10.9 gm/dl (11.8-15.2) L 02/21/19 04:54 Hct 33.2 % (35.5-45.6) L 02/21/19 04:54 MCV 87 fl (84-94) 02/21/19 04:54 MCH 29 pg (28-32) 02/21/19 04:54 MCHC 33 % (32-34) 02/21/19 04:54 RDW 15.8 % (13.2-15.2) H 02/21/19 04:54 Plt Count 153 K/mm3 (140-440) 02/21/19 04:54 Lymph % (Auto) 12.8 % (13.4-35.0) L 02/21/19 04:54 [place] % (Auto) 9.1 % (0.0-7.3) H 02/21/19 04:54 Eos % (Auto) 0.6 % (0.0-4.3) 02/21/19 04:54 Baso % (Auto) 0.2 % (0.0-1.8) 02/21/19 04:54 Lymph # 1.2 K/mm3 (1.2-5.4) 02/21/19 04:54 [place] # 0.9 K/mm3 (0.0-0.8) H 02/21/19 04:54 Eos # 0.1 K/mm3 (0.0-0.4) 02/21/19 04:54 Baso # 0.0 K/mm3 (0.0-0.1) 02/21/19 04:54 Seg Neutrophils % 77.3 % (40.0-70.0) H 02/21/19 04:54 Seg Neutrophils # 7.5 K/mm3 (1.8-7.7) 02/21/19 04:54 PT 14.1 Sec. (12.2-14.9) 02/18/19 Unknown INR 1.10 (0.87-1.13) 02/18/19 Unknown APTT 29.7 Sec. (24.2-36.6) 02/18/19 Unknown D-Dimer 2356.30 ng/mlDDU (0-234) H 02/18/19 Unknown POC ABG pH 7.424 (7.35-7.45) 02/18/19 15:15 POC ABG pCO2 36.7 (35-45) 02/18/19 15:15 POC ABG pO2 132 (80-105) H 02/18/19 15:15 POC ABG HCO3 24.0 (22-26 mml/L) 02/18/19 15:15 POC ABG Total CO2 25 (23-27mmol/L) 02/18/19 15:15 POC ABG O2 Sat 99 02/18/19 15:15 POC ABG Base Excess 0 ((-2) - (+3)mmol/L) 02/18/19 15:15 VBG pH 7.370 (7.320-7.420) 02/18/19 12:02 FiO2 35 % 02/18/19 15:15 Sodium 140 mmol/L (137-145) 02/23/19 04:17 Potassium 3.6 mmol/L (3.6-5.0) 02/23/19 04:17 Chloride 102.2 mmol/L (98-107) 02/23/19 04:17 Carbon Dioxide 28 mmol/L (22-30) 02/23/19 04:17 Anion Gap 13 mmol/L 02/23/19 04:17 BUN 23 mg/dL (9-20) H 02/23/19 04:17 Creatinine 0.9 mg/dL (0.8-1.5) 02/23/19 04:17 Estimated GFR > 60 ml/min 02/23/19 04:17 BUN/Creatinine Ratio 26 % 02/23/19 04:17 Glucose 149 mg/dL (75-100) H 02/23/19 04:17 POC Glucose 233 (70-105) H 02/25/19 11:29 Hemoglobin A1c 8.3 % (4-6) H 02/18/19 23:49 Lactic Acid 1.90 mmol/L (0.7-2.0) 02/19/19 06:27 Calcium 7.6 mg/dL (8.4-10.2) L 02/23/19 04:17 Magnesium 2.00 mg/dL (1.7-2.3) 02/23/19 04:17 Total Bilirubin 0.40 mg/dL (0.1-1.2) 02/19/19 05:10 Direct Bilirubin < 0.2 mg/dL (0-0.2) 02/18/19 12:02 Indirect Bilirubin 0.2 mg/dL 02/18/19 12:02 AST 21 units/L (5-40) 02/19/19 05:10 ALT 16 units/L (7-56) 02/19/19 05:10 Alkaline Phosphatase 98 units/L (35-129) 02/19/19 05:10 Troponin T 0.013 ng/mL (0.00-0.029) 02/18/19 12:02 NT-Pro-B Natriuret Pep 540.1 pg/mL (0-900) 02/18/19 12:02 Total Protein 6.8 g/dL (6.3-8.2) 02/19/19 05:10 Albumin 3.6 g/dL (3.9-5) L 02/19/19 05:10 Albumin/Globulin Ratio 1.1 % 02/19/19 05:10 TSH 0.514 mlU/mL (0.270-4.200) 02/18/19 22:01 Free T4 1.30 ng/dL (0.76-1.46) 02/18/19 22:01 Urine Color Yellow (Yellow) 02/18/19 Unknown Urine Turbidity Clear (Clear) 02/18/19 Unknown Urine pH 6.0 (5.0-7.0) 02/18/19 Unknown Ur Specific [place] 1.020 (1.003-1.030) 02/18/19 Unknown Urine Protein >500 mg/dL (Negative) 02/18/19 Unknown Urine Glucose (UA) 150 mg/dL (Negative) 02/18/19 Unknown Urine Ketones Tr mg/dL (Negative) 02/18/19 Unknown Urine Blood Sm (Negative) 02/18/19 Unknown Urine Nitrite Neg (Negative) 02/18/19 Unknown Urine Bilirubin Neg (Negative) 02/18/19 Unknown Urine Urobilinogen 2.0 mg/dL (<2.0) 02/18/19 Unknown Ur Leukocyte Esterase Neg (Negative) 02/18/19 Unknown Urine WBC (Auto) 1.0 /HPF (0.0-6.0) 02/18/19 Unknown Urine RBC (Auto) 14.0 /HPF (0.0-6.0) 02/18/19 Unknown U Epithel Cells (Auto) 1.0 /HPF (0-13.0) 02/18/19 Unknown Active Medications - Current Medications Current Medications: Generic Name Dose Route Start Last Admin Trade Name Freq PRN Reason Stop Dose Admin Acetaminophen 650 mg 02/18/19 17:48 02/24/19 18:18 Tylenol PO 650 mg Q4H PRN Administration Pain MILD(1-3)/Fever >100.5/LARSON Albuterol 2.5 mg 02/18/19 17:48 02/19/19 20:45 Proventil IH 2.5 mg Q4HRT PRN Administration Shortness Of Breath Apixaban 5 mg 02/19/19 11:00 02/25/19 09:40 Eliquis PO 5 mg Q12HR CARMEN Administration Atorvastatin Calcium 20 mg 02/19/19 22:00 02/24/19 23:08 Lipitor PO 20 mg QHS CARMEN Administration Carvedilol 3.125 mg 02/24/19 10:00 02/25/19 09:40 Coreg PO 3.125 mg BID CARMEN Administration Dextrose 0 ml 02/18/19 22:27 D50w (25gm) Syringe IV Q30MIN PRN Hypoglycemia Furosemide 40 mg 02/19/19 11:00 02/25/19 06:42 Lasix IV 40 mg 0600,1800 CARMEN Administration Guaifenesin 10 ml 02/20/19 17:46 02/23/19 19:43 Guaifenesin Dm Syrup PO 10 ml Q4H PRN Administration Cough Hydralazine HCl 10 mg 02/24/19 06:16 02/24/19 18:18 Apresoline IV 10 mg Q6H PRN Administration Blood Pressure Hydralazine HCl 100 mg 02/24/19 14:00 02/25/19 14:11 Apresoline PO 100 mg TID CARMEN Administration Ceftriaxone Sodium 2 gm in 100 mls @ 200 mls/hr 02/20/19 18:00 02/24/19 18:18 Rocephin/Ns 2 Gm/100 Ml IV 200 mls/hr Q24H CARMEN Administration Protocol Insulin Glargine 10 units 02/24/19 22:00 02/24/19 23:08 Lantus SUB-Q 10 units QHS CARMEN Administration Insulin Human Lispro 0 unit 02/19/19 07:30 02/25/19 14:11 Humalog SUB-Q 3 unit ACHS CARMEN Administration Protocol Losartan Potassium 100 mg 02/23/19 10:00 02/25/19 09:40 Cozaar PO 100 mg QDAY CARMEN Administration Ondansetron HCl 4 mg 02/18/19 17:48 Zofran IV Q8H PRN Nausea And Vomiting Sodium Chloride 10 ml 02/18/19 22:00 02/25/19 09:40 Sodium Chloride Flush Syringe 10 Ml IV 10 ml BID CARMEN Administration Sodium Chloride 10 ml 02/18/19 17:48 Sodium Chloride Flush Syringe 10 Ml IV PRN PRN LINE FLUSH
[2019-02-25] MEDS: cefTRIAXone/NS 2 GM/100 ML 2 GM/100 ML BAG IV SCH (18:51)
[2019-02-25] MEDS: INSULIN GLARGINE 100 UNITS/ML SUB-Q SCH (22:10)
[2019-02-26 06:01] LABS: BUN/Creatinine Ratio 19; Blood Urea Nitrogen 21 mg/dL (9-20); Calcium 7.7 mg/dL (8.4-10.2); Hemolysis Index 22
[2019-02-26 06:05] LABS: Hematocrit 38.7 % (35.5-45.6); Hemoglobin 12.6 gm/dl (11.8-15.2); Mean Corpuscular HGB Conc 33 % (32-34); Mean Corpuscular Volume 89 fl (84-94); Platelet Count 274 K/mm3 (140-440); Red Blood Count 4.35 M/mm3 (3.65-5.03); Red Cell Distribution Width 16.2 % (13.2-15.2)
[2019-02-26] MEDS: FUROSEMIDE 40 MG/4 ML INJ IV SCH ×2 (06:15→18:25)
--- NOTE | 2019-02-26 10:12 | Progress Note ---
Assessment and Plan Cont present cardiac management. LifeVest in place. No BB due to h/o AFib with SVR. Pt for swallow study today due to c/o dysphagia. The patient has been seen in conjunction with Dr. Orr who agrees with the assessment and plan of care. - Patient Problems (1) Acute HFrEF (heart failure with reduced ejection fraction) Current Visit: Yes Status: Acute (2) Ischemic cardiomyopathy Current Visit: Yes Status: Chronic (3) Atrial fibrillation Current Visit: Yes Status: Chronic (4) Acute respiratory failure Current Visit: Yes Status: Acute (5) Pneumonia Current Visit: Yes Status: Suspected Qualifiers: Lung location: unspecified part of lung (6) CAD (coronary artery disease) Current Visit: Yes Status: Chronic (7) History of coronary artery bypass graft Current Visit: Yes Status: Chronic (8) HTN (hypertension) Current Visit: Yes Status: Chronic (9) Diabetes Current Visit: Yes Status: Chronic (10) Bacteremia Current Visit: Yes Status: Acute (11) Sepsis Current Visit: Yes Status: Acute (12) NSVT (nonsustained ventricular tachycardia) Current Visit: Yes Status: Acute (13) Healing wound present on both lower extremities Current Visit: Yes Status: Acute Subjective Date of service: 02/26/19 Principal diagnosis: HF; afib Interval history: pt resting in bed, states he is feeling better, BLE edema improving. in AFib/AFlutter on tele HR 70s - 80s. Objective Last Vital Signs Temp 98.4 F 02/26/19 03:52 Pulse 62 02/26/19 03:52 Resp 22 02/26/19 03:52 BP 141/56 02/26/19 03:52 Pulse Ox 96 02/26/19 03:52 - Physical Examination General: No Apparent Distress HEENT: Positive: PERRL, Normocephaly, Mucus Membranes Moist Neck: Positive: neck supple, trachea midline Cardiac: Positive: irregularly irregular, S1/S2 Lungs: Positive: Decreased Breath Sounds Neuro: Positive: Grossly Intact Abdomen: Positive: Unremarkable. Negative: Tender /Rectal: Other (deferred) Skin: Positive: Wound (b/l foot wounds - wrapped in gauze. BLE skin wrinkled and chronically discolored ). Negative: Rash Musculoskeletal: Decreased Range of Motion, No Pain Extremities: Present: normal - Labs and Meds CBC 02/26/19 Range/Units 04:26 WBC 6.9 (4.5-11.0) K/mm3 RBC 4.35 (3.65-5.03) M/mm3 Hgb 12.6 (11.8-15.2) gm/dl Hct 38.7 (35.5-45.6) % Plt Count 274 (140-440) K/mm3 Lymph # [employer] [place] # [employer] Eos # [employer] Baso # [employer] Comprehensive Metabolic Panel 02/26/19 Range/Units 04:26 Sodium 140 (137-145) mmol/L Potassium 3.6 (3.6-5.0) mmol/L Chloride 99.4 (98-107) mmol/L Carbon Dioxide 25 (22-30) mmol/L BUN 21 H (9-20) mg/dL Creatinine 1.1 (0.8-1.5) mg/dL Glucose 127 H (75-100) mg/dL Calcium 7.7 L (8.4-10.2) mg/dL - Imaging and Cardiology EKG: report reviewed, image reviewed Echo: report reviewed ( EF 25-30%, dilated LV, dilated LA and RA, grade 2 diastolic dysfunction, mild to mod [place]. ) AV and intraventricular conduction: right bundle branch block
--- NOTE | 2019-02-26 11:06 | Progress Note ---
Assessment and Plan Assessment and plan: 83-year-old man who was brought to the hospital for shortness of breath and chills. Acute sepsis, group A strep bacteremia ID input appreciated, status post midline to continue Rocephin x2 weeks from after first negative culture, first negative culture was on 02/21, therefore should continue antibiotics until March 07. 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 Meds per cardiology, continue IV Lasix. Acute respiratory failure with hypoxia Continue oxygen by nasal cannula, continue to wean oxygen as tolerated Hypertensive urgency BP meds adjusted Atrial fibrillation with hypercoagulable state Patient was bradycardic on Coreg dose was reduced. Continue Eliquis Type 2 diabetes Continue basal and bolus insulins. Peripheral venous stasis, chronic stasis ulcers Continue wound care DVT prophylaxis; patient is fully anticoagulated Disposition; awaiting rehab placement, has been difficult to find placement that will accept the patient with a LifeVest. History Interval history: Review of systems Constitutional: No fevers, no malaise, no joint pains CVS: No chest pain, shortness of breath is improving, pedal edema is improving GI: No abdominal pain, no diarrhea, no vomiting, no constipation Respiratory: No shortness of breath, no wheezing, no coughing Hospitalist Physical - Physical exam Narrative exam: General.: Appears well, no distress, nontoxic HEENT: Moist mucous membranes, extraocular muscles intact, no lymphadenopathy Neck: supple Cardiac: S1-S2 heard Lungs: Decreased air entry Abdomen: soft , nontender, nondistended, bowel sounds positive Extremities: Lower extremity chronic skin changes and ulcers consistent with venous stasis. Skin: no rash or lesions Neurologic: no gross focal deficits Psych: calm, and cooperative - Constitutional Vitals: Temp Pulse Resp BP Pulse Ox 98.4 F 62 22 141/56 96 02/26/19 03:52 02/26/19 03:52 02/26/19 03:52 02/26/19 03:52 02/26/19 03:52 General appearance: Present: no acute distress, obese Results - Labs CBC & Chem 7: 02/26/19 04:26 02/26/19 04:26 Labs: Laboratory Last Values WBC 6.9 K/mm3 (4.5-11.0) 02/26/19 04:26 RBC 4.35 M/mm3 (3.65-5.03) 02/26/19 04:26 Hgb 12.6 gm/dl (11.8-15.2) 02/26/19 04:26 Hct 38.7 % (35.5-45.6) 02/26/19 04:26 MCV 89 fl (84-94) 02/26/19 04:26 MCH 29 pg (28-32) 02/26/19 04:26 MCHC 33 % (32-34) 02/26/19 04:26 RDW 16.2 % (13.2-15.2) H 02/26/19 04:26 Plt Count 274 K/mm3 (140-440) 02/26/19 04:26 Lymph % (Auto) [place] 02/26/19 04:26 [place] % (Auto) Bag Sewer 02/26/19 04:26 Eos % (Auto) Bag [place] 02/26/19 04:26 Baso % (Auto) Bag [place] 02/26/19 04:26 Lymph # Bag [place] 02/26/19 04:26 [place] # Bag Sewer 02/26/19 04:26 Eos # Bag [place] 02/26/19 04:26 Baso # [place] 02/26/19 04:26 Seg Neutrophils % [place] 02/26/19 04:26 Seg Neutrophils # [place] 02/26/19 04:26 PT 14.1 Sec. (12.2-14.9) 02/18/19 Unknown INR 1.10 (0.87-1.13) 02/18/19 Unknown APTT 29.7 Sec. (24.2-36.6) 02/18/19 Unknown D-Dimer 2356.30 ng/mlDDU (0-234) H 02/18/19 Unknown POC ABG pH 7.424 (7.35-7.45) 02/18/19 15:15 POC ABG pCO2 36.7 (35-45) 02/18/19 15:15 POC ABG pO2 132 (80-105) H 02/18/19 15:15 POC ABG HCO3 24.0 (22-26 mml/L) 02/18/19 15:15 POC ABG Total CO2 25 (23-27mmol/L) 02/18/19 15:15 POC ABG O2 Sat 99 02/18/19 15:15 POC ABG Base Excess 0 ((-2) - (+3)mmol/L) 02/18/19 15:15 VBG pH 7.370 (7.320-7.420) 02/18/19 12:02 FiO2 35 % 02/18/19 15:15 Sodium 140 mmol/L (137-145) 02/26/19 04:26 Potassium 3.6 mmol/L (3.6-5.0) 02/26/19 04:26 Chloride 99.4 mmol/L (98-107) 02/26/19 04:26 Carbon Dioxide 25 mmol/L (22-30) 02/26/19 04:26 Anion Gap 19 mmol/L 02/26/19 04:26 BUN 21 mg/dL (9-20) H 02/26/19 04:26 Creatinine 1.1 mg/dL (0.8-1.5) 02/26/19 04:26 Estimated GFR > 60 ml/min 02/26/19 04:26 BUN/Creatinine Ratio 19 % 02/26/19 04:26 Glucose 127 mg/dL (75-100) H 02/26/19 04:26 POC Glucose 153 (70-105) H 02/26/19 07:57 Hemoglobin A1c 8.3 % (4-6) H 02/18/19 23:49 Lactic Acid 1.90 mmol/L (0.7-2.0) 02/19/19 06:27 Calcium 7.7 mg/dL (8.4-10.2) L 02/26/19 04:26 Magnesium 2.00 mg/dL (1.7-2.3) 02/23/19 04:17 Total Bilirubin 0.40 mg/dL (0.1-1.2) 02/19/19 05:10 Direct Bilirubin < 0.2 mg/dL (0-0.2) 02/18/19 12:02 Indirect Bilirubin 0.2 mg/dL 02/18/19 12:02 AST 21 units/L (5-40) 02/19/19 05:10 ALT 16 units/L (7-56) 02/19/19 05:10 Alkaline Phosphatase 98 units/L (35-129) 02/19/19 05:10 Troponin T 0.013 ng/mL (0.00-0.029) 02/18/19 12:02 NT-Pro-B Natriuret Pep 540.1 pg/mL (0-900) 02/18/19 12:02 Total Protein 6.8 g/dL (6.3-8.2) 02/19/19 05:10 Albumin 3.6 g/dL (3.9-5) L 02/19/19 05:10 Albumin/Globulin Ratio 1.1 % 02/19/19 05:10 TSH 0.514 mlU/mL (0.270-4.200) 02/18/19 22:01 Free T4 1.30 ng/dL (0.76-1.46) 02/18/19 22:01 Urine Color Yellow (Yellow) 02/18/19 Unknown Urine Turbidity Clear (Clear) 02/18/19 Unknown Urine pH 6.0 (5.0-7.0) 02/18/19 Unknown Ur Specific [place] 1.020 (1.003-1.030) 02/18/19 Unknown Urine Protein >500 mg/dL (Negative) 02/18/19 Unknown Urine Glucose (UA) 150 mg/dL (Negative) 02/18/19 Unknown Urine Ketones Tr mg/dL (Negative) 02/18/19 Unknown Urine Blood Sm (Negative) 02/18/19 Unknown Urine Nitrite Neg (Negative) 02/18/19 Unknown Urine Bilirubin Neg (Negative) 02/18/19 Unknown Urine Urobilinogen 2.0 mg/dL (<2.0) 02/18/19 Unknown Ur Leukocyte Esterase Neg (Negative) 02/18/19 Unknown Urine WBC (Auto) 1.0 /HPF (0.0-6.0) 02/18/19 Unknown Urine RBC (Auto) 14.0 /HPF (0.0-6.0) 02/18/19 Unknown U Epithel Cells (Auto) 1.0 /HPF (0-13.0) 02/18/19 Unknown Active Medications - Current Medications Current Medications: Generic Name Dose Route Start Last Admin Trade Name Freq PRN Reason Stop Dose Admin Acetaminophen 650 mg 02/18/19 17:48 02/24/19 18:18 Tylenol PO 650 mg Q4H PRN Administration Pain MILD(1-3)/Fever >100.5/LARSON Albuterol 2.5 mg 02/18/19 17:48 02/19/19 20:45 Proventil IH 2.5 mg Q4HRT PRN Administration Shortness Of Breath Apixaban 5 mg 02/19/19 11:00 02/25/19 22:10 Eliquis PO 5 mg Q12HR CARMEN Administration Atorvastatin Calcium 20 mg 02/19/19 22:00 02/25/19 22:10 Lipitor PO 20 mg QHS CARMEN Administration Carvedilol 3.125 mg 02/24/19 10:00 02/25/19 22:10 Coreg PO 3.125 mg BID CARMEN Administration Dextrose 0 ml 02/18/19 22:27 D50w (25gm) Syringe IV Q30MIN PRN Hypoglycemia Furosemide 40 mg 02/19/19 11:00 02/25/19 18:51 Lasix IV 40 mg 0600,1800 CARMEN Administration Guaifenesin 10 ml 02/20/19 17:46 02/23/19 19:43 Guaifenesin Dm Syrup PO 10 ml Q4H PRN Administration Cough Hydralazine HCl 10 mg 02/24/19 06:16 02/24/19 18:18 Apresoline IV 10 mg Q6H PRN Administration Blood Pressure Hydralazine HCl 100 mg 02/24/19 14:00 02/25/19 20:47 Apresoline PO 100 mg TID CARMEN Administration Ceftriaxone Sodium 2 gm in 100 mls @ 200 mls/hr 02/20/19 18:00 02/25/19 18:51 Rocephin/Ns 2 Gm/100 Ml IV 03/06/19 23:59 200 mls/hr Q24H CARMEN Administration Protocol Insulin Human Lispro 0 unit 02/19/19 07:30 02/25/19 22:11 Humalog SUB-Q 4 unit ACHS CARMEN Administration Protocol Linagliptin 5 mg 02/26/19 08:00 Tradjenta PO QDDIAB CARMEN Losartan Potassium 100 mg 02/23/19 10:00 02/25/19 09:40 Cozaar PO 100 mg QDAY CARMEN Administration Metformin HCl 500 mg 02/26/19 08:00 Glucophage Xr PO QDDIAB CARMEN Ondansetron HCl 4 mg 02/18/19 17:48 Zofran IV Q8H PRN Nausea And Vomiting Sodium Chloride 10 ml 02/18/19 22:00 02/25/19 22:11 Sodium Chloride Flush Syringe 10 Ml IV Not Given BID CARMEN Sodium Chloride 10 ml 02/18/19 17:48 Sodium Chloride Flush Syringe 10 Ml IV PRN PRN LINE FLUSH Nutrition/Malnutrition Assess - Dietary Evaluation Nutrition/Malnutrition Findings: Nutrition Notes Start: 02/25/19 15:27 Freq: Status: Active Protocol: Document 02/25/19 15:27 RM (Rec: 02/25/19 15:34 RM [id number]) Nutrition Notes Need for Assessment generated from: LOS Initial or Follow up Assessment Current Diagnosis Coronary Artery Disease, Diabetes,Hypertension,Heart Failure Other Pertinent Diagnosis R and L stasis ulcer, PVD, S/P CABG, Leg edema, Pneu, Severe sepsis Current Diet Cardiac/Consistent CHO Labs/Tests A1c 8.3 Pertinent Medications Lasix Height 5 ft 10 in Weight 129.7 kg [place] Body Weight (kg) 75.45 BMI 41.0 Subjective/Other Information Screened for LOS. Pt stated that his appetite is improving and that he eats 1/ 3 of his meals. Pt stated that he avoids eating a lot of the solid foods d/t them getting stuck in his throat. Instrument And Electrical Technician noted pt missing many teeth and pt accepted offer of [facility] soft w/ground meat diet. Pt declined DM diet education d/t being familiar with it despite fha underwriter informing pt of his A1c. Percent of energy/protein needs met: 27%/23% Burn Absent Trauma Absent Minimum of two criteria No #1 Nutrition Diagnosis Inadequate oral intake Etiology chewing difficulty As Evidenced by Signs and Symptoms pt statement that he eats 1/3 of his meals Is patient on ventilator? No Is Patient Ambulatory and/or Out of Bed No REE-([facility]-confined to bed) 4519.308 Calculation Used for Recommendations [facility] Additional Notes Protein Needs: 124-155g (1.2-1 .5g/kg 103kg adjBW) Fluid Needs: 1 ml/kcal Nutrition Intervention Change Diet Order: Add [facility] soft w/ground meat modification Goal #1 Meet at least 75% of calorie and protein needs via PO intakes Anticipated Discharge Needs: Cardiac/Consistent CHO diet Follow-Up By: 02/27/19 Additional Comments Follow for PO intakes
--- NOTE | 2019-02-26 11:27 | Fluoroscopy Report ---
BARIUM SWALLOW Indication: esophageal dysphagia. Technique: Single contrast barium technique utilized to evaluate the esophagus. FINDINGS: To begin the exam, swallowing was evaluated in the lateral position under direct fluorosco py. Swallowing was normal. No gross aspiration was witnessed. No mucosal irregularity, mass, mass effect, or critical stenosis. Numerous tertiary contractions we re witnessed throughout the esophagus during this exam. No gastroesophageal reflux. IMPRESSION: No esophageal lesion or stenosis is identified. Moderate to severe esophageal dysmotilit y is suspected. Fluoroscopic time: 1.3 minutes Number of fluoroscopic images: 25 Signer Name: Simone Stanton Jr, MD Signed: 02/26/2019 11:22 AM Workstation Name: [id number]
[2019-02-26] MEDS: INSULIN LISPRO 100 UNIT/ML SUB-Q SCH ×4 (11:55→21:15)
[2019-02-26] MEDS: hydrALAZINE 100 MG TAB PO SCH ×3 (12:57→21:14)
[2019-02-26] MEDS: APIXABAN 5 MG TAB PO SCH ×2 (13:09→21:14)
[2019-02-26] MEDS: metFORMIN XR 500MG TAB PO SCH (13:09)
[2019-02-26] MEDS: carvediloL 3.125 MG TAB PO SCH ×2 (13:09→21:12)
[2019-02-26] MEDS: LOSARTAN 50 MG TAB PO SCH (13:09)
[2019-02-26] MEDS: LINAGLIPTIN 5 MG TAB PO SCH (13:09)
[2019-02-26] MEDS: cefTRIAXone/NS 2 GM/100 ML 2 GM/100 ML BAG IV SCH (18:26)
[2019-02-27] MEDS: FUROSEMIDE 40 MG/4 ML INJ IV SCH (05:08)
[2019-02-27] MEDS: LINAGLIPTIN 5 MG TAB PO SCH (08:45)
[2019-02-27] MEDS: hydrALAZINE 100 MG TAB PO SCH ×2 (08:45→17:02)
[2019-02-27] MEDS: metFORMIN XR 500MG TAB PO SCH (09:00)
[2019-02-27] MEDS: APIXABAN 5 MG TAB PO SCH (10:32)
[2019-02-27] MEDS: LOSARTAN 50 MG TAB PO SCH (10:34)
[2019-02-27] MEDS: carvediloL 3.125 MG TAB PO SCH (10:34)
[2019-02-27] MEDS: INSULIN LISPRO 100 UNIT/ML SUB-Q SCH ×3 (10:35→17:02)
--- NOTE | 2019-02-27 11:02 | Progress Note ---
Assessment and Plan Currently stable cardiac status. Pt appears to be nearing euvolemia. Pt may discharge from cardiology standpoint. At discharge, recommend PO lasix 40mg BID. Cont all other present cardiac management. No BB due to h/o AFib with SVR. LifeVest in place. Recommend pt follow up with his primary cardiology team at [facility] cardiology within 3-5 days of hospital discharge. The patient has been seen in conjunction with Dr. Orr who agrees with the assessment and plan of care. - Patient Problems (1) Acute HFrEF (heart failure with reduced ejection fraction) Current Visit: Yes Status: Acute (2) Ischemic cardiomyopathy Current Visit: Yes Status: Chronic (3) Atrial fibrillation Current Visit: Yes Status: Chronic (4) Acute respiratory failure Current Visit: Yes Status: Acute (5) Pneumonia Current Visit: Yes Status: Suspected Qualifiers: Lung location: unspecified part of lung (6) CAD (coronary artery disease) Current Visit: Yes Status: Chronic (7) History of coronary artery bypass graft Current Visit: Yes Status: Chronic (8) HTN (hypertension) Current Visit: Yes Status: Chronic (9) Diabetes Current Visit: Yes Status: Chronic (10) Bacteremia Current Visit: Yes Status: Acute (11) Sepsis Current Visit: Yes Status: Acute (12) NSVT (nonsustained ventricular tachycardia) Current Visit: Yes Status: Acute (13) Healing wound present on both lower extremities Current Visit: Yes Status: Acute Subjective Date of service: 02/27/19 Principal diagnosis: HF; afib Interval history: pt resting in bed, states he is feeling better, BLE edema improving. in AFib/AFlutter on tele HR 70s - 80s. Objective Last Vital Signs Temp 98.4 F 02/27/19 08:09 Pulse 64 02/27/19 10:34 Resp 18 02/27/19 08:09 BP 133/54 02/27/19 10:34 Pulse Ox 99 02/27/19 08:09 - Physical Examination General: No Apparent Distress HEENT: Positive: PERRL, Normocephaly, Mucus Membranes Moist Neck: Positive: neck supple, trachea midline Cardiac: Positive: irregularly irregular, S1/S2 Lungs: Positive: Decreased Breath Sounds Neuro: Positive: Grossly Intact Abdomen: Positive: Unremarkable. Negative: Tender /Rectal: Other (deferred) Skin: Positive: Wound (b/l foot wounds - wrapped in gauze. BLE skin wrinkled and chronically discolored ). Negative: Rash Musculoskeletal: Decreased Range of Motion, No Pain Extremities: Present: normal - Imaging and Cardiology EKG: report reviewed, image reviewed Echo: report reviewed ( EF 25-30%, dilated LV, dilated LA and RA, grade 2 diastolic dysfunction, mild to mod CT. ) AV and intraventricular conduction: right bundle branch block
--- NOTE | 2019-02-27 11:38 | Discharge Summary ---
Providers - Providers Date of Admission: 02/18/19 17:48 Attending physician: RADHA SHERIDAN MD 02/18/19 17:48 Consult to Physician [CONS] Routine Comment: Consulting Provider: DEANA SALMERON Physician Instructions: Reason For Exam: chf 02/19/19 08:14 Consult to Wound/ET Nurse [CONS] Urgent Reason For Exam: wound eval 02/20/19 07:20 Physical Therapy Evaluation and Treat [CONS] Routine Comment: Reason For Exam: mobility 02/20/19 09:56 Consult to Physician [CONS] Routine Comment: Consulting Provider: DON BRANDON Physician Instructions: Reason For Exam: sepsis, bacteremia 02/21/19 15:45 Consult to Case Management [CONS] Routine Services Needed at Discharge: Home Health Services Notified:: case management Additional Physician Instructions: [facility] M: [phone] O: [phone] F: [phone] OUTPATIENT PARENTERAL ANTIBIOTIC THERAPY ORDERS Diagnosis: MSSA bacteremia Antimicrobial administration: ceftriaxone 2g 24h until 03/07/19 Line: Midline Lab monitoring: CBC with diff, BUN, creatinine, LFTs once per week preferably on Monday mornings. Please fax results to [phone] and call [phone] James 01/25/2019 02/22/19 11:55 Consult to PICC Line RN [CONS] Routine Reason For Exam: director power antibiotics Type Line:: PICC 02/23/19 08:00 PICC Line Insertion [Consult to PICC Line RN] [CONS] Routine Reason For Exam: Home antibiotics Type Line:: Midline 02/25/19 13:49 Speech Therapy Evaluation and Treat [CONS] Routine Reason For Exam: Difficulty swollowing Primary care physician: GARMENT CUTTER Hospitalization Condition: Stable Hospital course: 83-year-old man who was brought to the hospital for shortness of breath and chills. Acute sepsis, group A strep bacteremia ID input appreciated, status post midline to continue Rocephin x2 weeks from after first negative culture, first negative culture was on 02/21, therefore should continue antibiotics until March 07. 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 Meds per cardiology, continue IV Lasix. Acute respiratory failure with hypoxia Continue oxygen by nasal cannula, continue to wean oxygen as tolerated Hypertensive urgency BP meds adjusted Atrial fibrillation with hypercoagulable state Patient was bradycardic on Coreg dose was reduced. Continue Eliquis Type 2 diabetes Continue basal and bolus insulins. Peripheral venous stasis, chronic stasis ulcers Continue wound care DVT prophylaxis; patient is fully anticoagulated Disposition: [id number] [facility] REHAB FACILITY Time spent for discharge: 33 minutes Core Measure Documentation - Palliative Care Palliative Care/ Comfort Measures: Not Applicable - Core Measures Any of the following diagnoses?: heart failure - Heart Failure Discharge Requirements VICTORIANO/ARB for LVSD if EF <40%: Yes Beta liborio at discharge: Yes Exam - Physical Exam Narrative exam: General.: Appears well, no distress, nontoxic HEENT: Moist mucous membranes, extraocular muscles intact, no lymphadenopathy Neck: supple Cardiac: S1-S2 heard Lungs: Decreased air entry Abdomen: soft , nontender, nondistended, bowel sounds positive Extremities: Lower extremity chronic skin changes and ulcers consistent with venous stasis. Skin: no rash or lesions Neurologic: no gross focal deficits Psych: calm, and cooperative - Constitutional Vitals: Temp Pulse Resp BP Pulse Ox 98.6 F 80 18 149/73 98 02/27/19 11:15 02/27/19 11:15 02/27/19 11:15 02/27/19 11:15 02/27/19 11:15 Plan Follow up with: PRIMARY CARE, [Primary Care Provider] - 3-5 Days Prescriptions: Furosemide [Lasix TAB] 40 mg PO BID #60 tablet
[2019-02-27] MEDS: ALBUTEROL 2.5 MG/3 ML NEBU IH PRN (12:22)
[2019-02-27 16:09] VITALS: BP 140/53
== END 2019-02-27 17:12 | DRG 871 ==
LOC: ED 11:36 → 4A 17:48
PROVIDERS: ADMIT Internal Medicine; ATTEND Internal Medicine
PROC: 4A033R1 Measurement of Arterial Saturation, Peripheral, Percutaneous Approach (ICD-10-PCS; principal; 2019-02-18)
PROC: 5A09357 Assistance with Respiratory Ventilation, Less than 24 Consecutive Hours, Continuous Positive Airway Pressure (ICD-10-PCS; 2019-02-18)
PROC: 5A09357 Assistance with Respiratory Ventilation, Less than 24 Consecutive Hours, Continuous Positive Airway Pressure (ICD-10-PCS; 2019-02-19)
PROC: 5A09357 Assistance with Respiratory Ventilation, Less than 24 Consecutive Hours, Continuous Positive Airway Pressure (ICD-10-PCS; 2019-02-20)
PROC: 5A09357 Assistance with Respiratory Ventilation, Less than 24 Consecutive Hours, Continuous Positive Airway Pressure (ICD-10-PCS; 2019-02-21)
PROC: 5A09357 Assistance with Respiratory Ventilation, Less than 24 Consecutive Hours, Continuous Positive Airway Pressure (ICD-10-PCS; 2019-02-22)
PROC: 05HY33Z Insertion of Infusion Device into Upper Vein, Percutaneous Approach (ICD-10-PCS; 2019-02-23)
DX: A40.0 Sepsis due to streptococcus, group A (principal); J18.9 Pneumonia, unspecified organism; I50.43 Acute on chronic combined systolic (congestive) and diastolic (congestive) heart failure; J96.01 Acute respiratory failure with hypoxia; E66.2 Morbid (severe) obesity with alveolar hypoventilation; D68.59 Other primary thrombophilia; Z68.41 Body mass index [BMI] 40.0-44.9, adult; I48.91 Unspecified atrial fibrillation; I11.0 Hypertensive heart disease with heart failure; R65.20 Severe sepsis without septic shock; I25.5 Ischemic cardiomyopathy; I16.0 Hypertensive urgency; I83.009 Varicose veins of unspecified lower extremity with ulcer of unspecified site; E11.51 Type 2 diabetes mellitus with diabetic peripheral angiopathy without gangrene; I25.10 Atherosclerotic heart disease of native coronary artery without angina pectoris; Z95.1 Presence of aortocoronary bypass graft; Z82.49 Family history of ischemic heart disease and other diseases of the circulatory system; Z83.3 Family history of diabetes mellitus; Z88.5 Allergy status to narcotic agent
CPT/HCPCS: 36415; 71045; 71275; 74220; 78580; 80048; 80053; 80076; 81001; 82140; 82803; 82805; 82962; 83036; 83735; 83880; 84439; 84443; 84484; 85025; 85379; 85610; 85730; 87040; 87086; 87116; 90686; 93005; 93010; 93306; 94640; 94644; 94660; 94760; G0378; A9270-GY; A9540; J0360; J0610; J0696; J1815; J1940; J1956; J2543; J3370; J7040; Q9967

== ENCOUNTER 2019-05-08 09:40 | Outpatient (CLI) | payer MEDICARE ==
[2019-05-08] MEDS ORDERED: SILVER NITRATE APPLICATOR 1 EA TP ONE (10:39)
[2019-05-08] MEDS ORDERED: LIDOCAINE (4%) 40 MG/ML TOPICAL SOLN 50 ML BOTTLE TP ONE (10:39)
== END 2019-05-08 09:41 | disposition home or self-care (01) ==
LOC: WOUND 09:40
PROVIDERS: ATTEND Surgery
DX: I87.313 Chronic venous hypertension (idiopathic) with ulcer of bilateral lower extremity (principal); E11.621 Type 2 diabetes mellitus with foot ulcer; L89.893 Pressure ulcer of other site, stage 3; L97.512 Non-pressure chronic ulcer of other part of right foot with fat layer exposed; L97.522 Non-pressure chronic ulcer of other part of left foot with fat layer exposed; I89.0 Lymphedema, not elsewhere classified; I87.2 Venous insufficiency (chronic) (peripheral); I25.10 Atherosclerotic heart disease of native coronary artery without angina pectoris; Z87.891 Personal history of nicotine dependence
CPT/HCPCS: 11042; 11045; G0463; 99215

== ENCOUNTER 2019-05-13 08:14 | Inpatient (IN) | payer MEDICARE ==
--- NOTE | 2019-05-13 09:22 | Emergency Department Report ---
ED Shortness of Breath HPI - General Stated Complaint: CECILIO Time Seen by Provider: 05/13/19 08:59 Source: patient, EMS Mode of arrival: Stretcher - History of Present Illness Initial Comments: 82-year-old male with history of PVD, hypertension, diabetes, CHF with EF of 25- 30% (currently wearing a Life Vest), CABG, A. fib, possible COPD, presents to ED with shortness of breath since this morning. Patient is currently in an assisted living facility, he reports he was discharged from a rehabilitation fa cility proximately 3 weeks ago. Patient states he was receiving breathing treatments while he was there, and states he is supposed to use O2 as needed. Patient currently reports some chest tightness. Reports cough. Patient states he is feeling better now that he is on oxygen. EMS reports room air sats 94- 96%. Patient has chronic BLE wounds for which he regularly sees wound care. Cardiology: the [facility] MD Complaint: shortness of breath -: This morning Severity: moderate Consistency: constant Improves With: oxygen Worsens With: nothing Known History Of: COPD, congestive heart failure Associated Symptoms: cough Treatments Prior to Arrival: oxygen - Related Data Home Oxygen Therapy: No Previous Rx's Medication Instructions Recorded Last Taken Type Apixaban [Eliquis] 5 mg PO Q12HR tablet 02/27/19 Unknown Rx AtorvaSTATin [Lipitor] 20 mg PO QHS tablet 02/27/19 Unknown Rx Furosemide [Lasix TAB] 40 mg PO BID #60 tablet 02/27/19 Unknown Rx Linagliptin [Tradjenta] 5 mg PO QDDIAB tablet 02/27/19 Unknown Rx Lispro Insulin [HumaLOG] 0 unit SUB-Q ACHS units 02/27/19 Unknown Rx Losartan [Cozaar] 100 mg PO QDAY tablet 02/27/19 Unknown Rx carvediloL [Coreg] 3.125 mg PO BID tablet 02/27/19 Unknown Rx hydrALAZINE [Apresoline TAB] 100 mg PO TID tab 02/27/19 Unknown Rx metFORMIN XR [Glucophage XR] 500 mg PO QDDIAB tablet 02/27/19 Unknown Rx Allergies Allergy/AdvReac Type Severity Reaction Status Date / Time morphine AdvReac Vomiting Verified 10/31/17 14:15 ED Review of Systems ROS: Stated complaint: CECILIO Other details as noted in HPI Comment: All other systems reviewed and negative Constitutional: denies: chills, fever Respiratory: cough, shortness of breath Cardiovascular: chest pain ED Past Medical Hx - Past Medical History Hx Hypertension: Yes Hx Congestive Heart Failure: Yes Hx Diabetes: Yes Additional medical history: Chronic venous insufficiency both lower extremities, triple bypass - Surgical History Hx Open Heart Surgery: Yes - Social History Smoking Status: Former Smoker - Medications Home Medications: Home Medications Medication Instructions Recorded Confirmed Last Taken Type Apixaban [Eliquis] 5 mg PO Q12HR tablet 02/27/19 05/13/19 Unknown Rx AtorvaSTATin [Lipitor] 20 mg PO QHS tablet 02/27/19 05/13/19 Unknown Rx Furosemide [Lasix TAB] 40 mg PO BID #60 tablet 02/27/19 05/13/19 Unknown Rx Linagliptin [Tradjenta] 5 mg PO QDDIAB tablet 02/27/19 05/13/19 Unknown Rx Lispro Insulin [HumaLOG] 0 unit SUB-Q ACHS units 02/27/19 05/13/19 Unknown Rx Losartan [Cozaar] 100 mg PO QDAY tablet 02/27/19 05/13/19 Unknown Rx carvediloL [Coreg] 3.125 mg PO BID tablet 02/27/19 05/13/19 Unknown Rx hydrALAZINE [Apresoline TAB] 100 mg PO TID tab 02/27/19 05/13/19 Unknown Rx metFORMIN XR [Glucophage XR] 500 mg PO QDDIAB tablet 02/27/19 05/13/19 Unknown Rx ED Physical Exam - General General appearance: alert, in no apparent distress - Head Head exam: Present: atraumatic, normocephalic - Eye Eye exam: Present: normal appearance, EOMI - ENT ENT exam: Present: mucous membranes moist - Neck Neck exam: Present: normal inspection - Respiratory Respiratory exam: Present: wheezes, rhonchi - Cardiovascular Cardiovascular Exam: Present: regular rate, normal rhythm, other (life vest in place) - GI/Abdominal GI/Abdominal exam: Present: soft. Absent: distended, tenderness - Extremities Exam Extremities exam: Present: other (swelling present to BLE, dressings in place bilaterally) - Neurological Exam Neurological exam: Present: alert, oriented X3 - Psychiatric Psychiatric exam: Present: normal affect, normal mood ED Course Vital Signs 05/13/19 05/13/19 05/13/19 08:30 08:36 09:16 Temperature 98.3 F Pulse Rate 68 Pulse Rate [ Anterior Bilateral Throughout] Respiratory 20 Rate Respiratory Rate [Anterior Bilateral Throughout] Blood Pressure 145/64 112/54 Blood Pressure [Left] O2 Sat by Pulse 98 98 Oximetry 05/13/19 05/13/19 05/13/19 09:30 09:45 10:00 Temperature Pulse Rate 87 71 Pulse Rate [ Anterior Bilateral Throughout] Respiratory 19 Rate Respiratory Rate [Anterior Bilateral Throughout] Blood Pressure 160/70 Blood Pressure 145/60 160/70 [Left] O2 Sat by Pulse 97 Oximetry 05/13/19 05/13/19 05/13/19 10:02 11:00 11:30 Temperature Pulse Rate 71 Pulse Rate [ 96 H Anterior Bilateral Throughout] Respiratory 24 23 Rate Respiratory 17 Rate [Anterior Bilateral Throughout] Blood Pressure 160/70 122/52 Blood Pressure [Left] O2 Sat by Pulse 95 95 Oximetry 05/13/19 05/13/19 05/13/19 12:00 12:01 12:30 Temperature Pulse Rate 64 Pulse Rate [ Anterior Bilateral Throughout] Respiratory 20 20 19 Rate Respiratory Rate [Anterior Bilateral Throughout] Blood Pressure 114/42 135/62 Blood Pressure 119/42 [Left] O2 Sat by Pulse 95 Oximetry 05/13/19 05/13/19 05/13/19 13:58 14:00 14:30 Temperature Pulse Rate 87 86 92 H Pulse Rate [ Anterior Bilateral Throughout] Respiratory 19 18 21 Rate Respiratory Rate [Anterior Bilateral Throughout] Blood Pressure 155/53 155/53 151/98 Blood Pressure [Left] O2 Sat by Pulse 100 98 Oximetry 05/13/19 05/13/19 05/13/19 15:00 15:30 16:00 Temperature Pulse Rate 79 70 81 Pulse Rate [ Anterior Bilateral Throughout] Respiratory 19 15 22 Rate Respiratory Rate [Anterior Bilateral Throughout] Blood Pressure 148/55 144/69 138/45 Blood Pressure [Left] O2 Sat by Pulse 97 96 Oximetry 05/13/19 16:21 Temperature Pulse Rate Pulse Rate [ Anterior Bilateral Throughout] Respiratory 18 Rate Respiratory Rate [Anterior Bilateral Throughout] Blood Pressure Blood Pressure [Left] O2 Sat by Pulse Oximetry - Reevaluation(s) Reevaluation #1: 05/13/19 10:35 Pt states the nebulizer treatment "really helped." Feeling much better at this time. Reevaluation #2: 05/13/19 12:43 V/Q ordered at 11:19, still has not been done. Nuc Med states that they are out of the meds for the V/Q scan but they should be here at around 1:30. ED Medical Decision Making - Lab Data Result diagrams: 05/13/19 09:35 05/16/19 04:29 - EKG Data -: EKG Interpreted by Me EKG shows normal: sinus rhythm, ST-T waves Rate: normal - EKG Data Interpretation: other (RBBB, LAFB; occasional PVCs present) - Radiology Data Radiology results: report reviewed, image reviewed - Differential Diagnosis pneumonia, CHF, COPD, PE Critical care attestation.: If time is entered above; I have spent that time in minutes in the direct care of this critically ill patient, excluding procedure time. ED Disposition Clinical Impression: Chest pain, COPD with acute exacerbation Disposition: OP ADMIT IP TO THIS HOSP Is pt being admited?: Yes Condition: Stable
[2019-05-13] MEDS ORDERED: IPRATROPIUM 0.02% NEBU 2.5 ML IH ONE (09:33)
[2019-05-13] MEDS ORDERED: ALBUTEROL 2.5 MG/3 ML NEBU IH ONE (09:33)
[2019-05-13 09:54] LABS: Basophils # (Auto) 0.1 K/mm3 (0.0-0.1); Basophils % (Auto) 0.9 % (0.0-1.8); Eosinophils % (Auto) 0.4 % (0.0-4.3); Hematocrit 28.6 % (35.5-45.6); Hemoglobin 9.4 gm/dl (11.8-15.2); Lymphocytes % (Auto) 13.1 % (13.4-35.0); Mean Corpuscular HGB Conc 33 % (32-34); Mean Corpuscular Volume 91 fl (84-94); Monocytes # (Auto) 0.7 K/mm3 (0.0-0.8); Monocytes % (Auto) 8.7 % (0.0-7.3); Platelet Count 216 K/mm3 (140-440); Red Blood Count 3.14 M/mm3 (3.65-5.03); Red Cell Distribution Width 16.9 % (13.2-15.2)
[2019-05-13 10:06] LABS: INR 1.13 (0.87-1.13); Partial Thromboplastin Time 22.5 Sec. (24.2-36.6)
[2019-05-13 10:13] LABS: BUN/Creatinine Ratio 13; Blood Urea Nitrogen 10 mg/dL (9-20); Calcium 7.9 mg/dL (8.4-10.2); Hemolysis Index 56
[2019-05-13 10:29] LABS: Chol/HDL Ratio 1.92 %
--- NOTE | 2019-05-13 10:55 | XRay Report ---
CHEST 1 VIEW INDICATION / CLINICAL INFORMATION: sob. COMPARISON: 02/24/2019 FINDINGS: SUPPORT DEVICES: Multiple electronic devices are superimposed over the thorax HEART / MEDIASTINUM: No significant abnormality. LUNGS / PLEURA: No significant pulmonary or pleural abnormality. No pneumothorax. ADDITIONAL FINDINGS: No significant additional findings. IMPRESSION: No acute pulmonary or pleural abnormality. No change from 02/24/2019 Signer Name: John Hansen MD FACKrishna Signed: 05/13/2019 10:50 AM Workstation Name: [id number]
--- NOTE | 2019-05-13 14:47 | Nuclear Medicine Report ---
A few Scan HISTORY: sob. TECHNIQUE: Patient was given 5 mCi of technetium MAA and 20.1 mCi of xenon-133. COMPARISON: Chest x-ray from today FINDINGS: No appreciable mismatch between ventilation and perfusion imaging. IMPRESSION: Low probability for PTE. Signer Name: Carl Leonard MD Signed: 05/13/2019 2:43 PM Workstation Name: [id number]
[2019-05-13] MEDS ORDERED: ALBUTEROL 2.5 MG/3 ML NEBU IH PRN (15:11)
[2019-05-13] MEDS ORDERED: ONDANSETRON 4 MG/2 ML INJ IV PRN (15:11)
--- NOTE | 2019-05-13 15:11 | History and Physical Report ---
History of Present Illness Chief complaint: I cannot breathe History of present illness: 83 YO Male with DM, HTN, PVD, CAD S/P CABG, Debility, Atrial Fib on therapeutic anticoagulation, Obesity Hypoventilation, Systolic CHF(EF 25%) currently wearing a LifeVest presents to ED for evaluation. Pt states that she has experienced shortness of breath over the past 5 days with progressively worsening symptoms over the past 1 day. Pt acknowledges Orthopnea/PND, Decreased exercise tolerance, leg edema, dypsnea on exertion, dypsnea at rest. EMS notified, and upon arrival the patient was found to be in distress and transported to [facility]. Pt seen and evaluated in ED and found to have symptoms consistent with CHF Decompensation, as well as acute hypoxemic respiratory failure. Patient pulse oximetry fluctuates on room air between 85 and 88%. Patient treated with supplemental oxygen with mild improvement in symptoms. Patient has episodes of lethargy, and is unable to speak in complete sentences due to shortness of seymour th. Patient exhibits increased work of breathing. Patient admitted to telemetry for medical stabilization due to high risk for cardiopulmonary decompensation. Cardiology team consulted in ED.. Pt denies fever, chills, palpitatons, NVD, Trauma, BRBPR, skin rash or recent ill contacts. Prior admis nathan on 02/18/2019 reviewed. All listed medication reconciled at time of admission. Advanced care planning conducted in ED. Past History Past Medical History: atrial fib, diabetes, heart failure, hypertension, other (See HPI) Past Surgical History: CABG Social history: . denies: smoking, alcohol abuse, prescription drug abuse Family history: diabetes, hypertension Medications and Allergies Allergies Allergy/AdvReac Type Severity Reaction Status Date / Time morphine AdvReac Vomiting Verified 10/31/17 14:15 Home Medications Medication Instructions Recorded Confirmed Last Taken Type Apixaban [Eliquis] 5 mg PO Q12HR tablet 02/27/19 05/13/19 Unknown Rx AtorvaSTATin [Lipitor] 20 mg PO QHS tablet 02/27/19 05/13/19 Unknown Rx Furosemide [Lasix TAB] 40 mg PO BID #60 tablet 02/27/19 05/13/19 Unknown Rx Linagliptin [Tradjenta] 5 mg PO QDDIAB tablet 02/27/19 05/13/19 Unknown Rx Lispro Insulin [HumaLOG] 0 unit SUB-Q ACHS units 02/27/19 05/13/19 Unknown Rx Losartan [Cozaar] 100 mg PO QDAY tablet 02/27/19 05/13/19 Unknown Rx carvediloL [Coreg] 3.125 mg PO BID tablet 02/27/19 05/13/19 Unknown Rx hydrALAZINE [Apresoline TAB] 100 mg PO TID tab 02/27/19 05/13/19 Unknown Rx metFORMIN XR [Glucophage XR] 500 mg PO QDDIAB tablet 02/27/19 05/13/19 Unknown Rx Review of Systems Constitutional: weight gain, no weight loss, no fever, no chills Ears, nose, mouth and throat: no ear pain, no ear discharge, no decreased hearing, no nose pain, no nasal discharge, no sinus pressure Cardiovascular: orthopnea, rapid/irregular heart beat, edema, shortness of breath, dyspnea on exertion, paroxysmal nocturnal dyspnea, leg edema, decreased exercise tolerance, no chest pain Respiratory: no cough, no cough with sputum, no excessive sputum Gastrointestinal: no nausea, no vomiting, no diarrhea, no constipation Genitourinary Male: no hematuria, no flank pain, no discharge, no urinary frequency, no urinary hesitancy Rectal: no pain, no incontinence, no bleeding Musculoskeletal: no neck stiffness, no neck pain, no shooting arm pain, no arm numbness/tingling, no shooting leg pain, no leg numbness/tingling Integumentary: no rash, no pruritis, no redness, no sores, no wounds Neurological: no transient paralysis, no paralysis, no weakness, no parathesias, no syncope Psychiatric: no anxiety, no memory loss, no change in sleep habits, no insomnia, no hypersomnia, no change in appetite Endocrine: no cold intolerance, no heat intolerance, no polyphagia, no excessive thirst, no polydipsia, no excessive sweating Hematologic/Lymphatic: no easy bruising, no easy bleeding, no lymphadenopathy, no lymphedema Allergic/Immunologic: no allergic rhinitis, no wheezing, no anaphylaxis, no angioedema Exam - Constitutional Vitals: Temp Pulse Resp BP Pulse Ox 98.3 F 92 H 21 151/98 98 05/13/19 08:30 05/13/19 14:30 05/13/19 14:30 05/13/19 14:30 05/13/19 14:30 General appearance: Present: mild distress - EENT Eyes: Present: PERRL ENT: hearing intact, clear oral mucosa - Neck Neck: Present: supple, masses or JVD - Respiratory Respiratory effort: labored, accessory muscle use, stridor Respiratory: bilateral: diminished, rales - Cardiovascular Rhythm: irregularly irregular Heart Sounds: Present: S1 & S2. Absent: rub, click - Extremities Extremities: pulses symmetrical Extremity abnormal: edema Peripheral Pulses: within normal limits - Abdominal General gastrointestinal: Present: soft, non-tender, non-distended, normal bowel sounds Male genitourinary: Present: normal, scrotal edema - Integumentary Integumentary: Present: clear, warm, dry - Musculoskeletal Musculoskeletal: generalized weakness - Psychiatric Psychiatric: appropriate mood/affect, intact judgment & insight - Neurologic Neurologic: CNII-XII intact, moves all extremities, no gait normal Results - Labs CBC & Chem 7: 05/13/19 09:35 05/13/19 09:35 Labs: Abnormal lab results 05/13/19 05/13/19 05/13/19 Range/Units 09:35 09:35 09:35 RBC 3.14 L (3.65-5.03) M/mm3 Hgb 9.4 L (11.8-15.2) gm/dl Hct 28.6 L (35.5-45.6) % RDW 16.9 H (13.2-15.2) % Lymph % (Auto) 13.1 L (13.4-35.0) % Mckenzie % (Auto) 8.7 H (0.0-7.3) % Lymph # 1.0 L (1.2-5.4) K/mm3 Seg Neutrophils % 76.9 H (40.0-70.0) % APTT 22.5 L (24.2-36.6) Sec. D-Dimer (0-234) ng/mlDDU Glucose 105 H (75-100) mg/dL Calcium 7.9 L (8.4-10.2) mg/dL Troponin T 0.033 H (0.00-0.029) ng/mL NT-Pro-B Natriuret Pep 2083 H (0-900) pg/mL LDL Cholesterol Direct (50-130) mg/dL 05/13/19 05/13/19 Range/Units 09:35 09:35 RBC (3.65-5.03) M/mm3 Hgb (11.8-15.2) gm/dl Hct (35.5-45.6) % RDW (13.2-15.2) % Lymph % (Auto) (13.4-35.0) % Mckenzie % (Auto) (0.0-7.3) % Lymph # (1.2-5.4) K/mm3 Seg Neutrophils % (40.0-70.0) % APTT (24.2-36.6) Sec. D-Dimer 1226.80 H (0-234) ng/mlDDU Glucose (75-100) mg/dL Calcium (8.4-10.2) mg/dL Troponin T 0.038 H (0.00-0.029) ng/mL NT-Pro-B Natriuret Pep (0-900) pg/mL LDL Cholesterol Direct 46 L (50-130) mg/dL Assessment and Plan - Patient Problems (1) Acute respiratory failure Current Visit: No Status: Acute Qualifiers: Respiratory failure complication: hypoxia Qualified Code(s): J96.01 - Acute respiratory failure with hypoxia Plan to address problem: Supplemental oxygen, nebulizer therapy, chest x-ray, pulse oximetry, noninvasive positive pressure ventilation as clinically indicated. VQ scan. (2) CHF (congestive heart failure) Current Visit: No Status: Acute Qualifiers: Heart failure type: systolic Heart failure chronicity: acute Qualified Code(s): I50.21 - Acute systolic (congestive) heart failure Plan to address problem: Admit to telemetry: Strict I/O, daily weight, BNP, pulse oximetry, nebulizer therapy, chest x-ray, echocardiogram reviewed, cardiology consulted in ED, diuresis, afterload reduction (3) Obesity hypoventilation syndrome Current Visit: No Status: Acute Plan to address problem: Supplemental oxygen, nebulizer therapy, pulse oximetry, incentive spirometry, noninvasive positive pressure ventilation as clinically indicated. (4) Atrial fibrillation Current Visit: No Status: Chronic Qualifiers: Atrial fibrillation type: other persistent Qualified Code(s): I48.19 - Other persistent atrial fibrillation Plan to address problem: Continue therapeutic anticoagulation, supportive care, rate control, cardiology consulted in ED (5) Diabetes Current Visit: No Status: Chronic Plan to address problem: Consistent carbohydrate diet, sliding scale insulin, Accu-Chek, hypoglycemia protocol. (6) HTN (hypertension) Current Visit: No Status: Chronic Qualifiers: Hypertension type: essential hypertension Qualified Code(s): I10 - Essential (primary) hypertension Plan to address problem: Monitor blood pressure every shift, resume prehospital antihypertensive therapy, IV hydralazine as needed for systolic blood pressure greater than 160 (7) DVT prophylaxis Current Visit: Yes Status: Acute Plan to address problem: SCD to bilateral lower extremities while in bed, continue therapeutic anticoagulation. (8) Advance care planning Current Visit: Yes Status: Acute Plan to address problem: Patient is full code, disease education conducted, patient acknowledges understanding and agreement with care plan. +30 minutes.
[2019-05-13] MEDS: ACETAMINOPHEN 325 MG TAB PO PRN ×2 (15:21→21:21)
[2019-05-13] MEDS: FUROSEMIDE 40 MG/4 ML INJ IV SCH (18:12)
[2019-05-13] MEDS: APIXABAN 5 MG TAB PO SCH (21:21)
[2019-05-13] MEDS: hydrALAZINE 100 MG TAB PO SCH (21:21)
[2019-05-13] MEDS: carvediloL 3.125 MG TAB PO SCH (21:22)
[2019-05-14 05:31] LABS: BUN/Creatinine Ratio 16; Blood Urea Nitrogen 11 mg/dL (9-20); Calcium 7.6 mg/dL (8.4-10.2); Hemolysis Index 14
[2019-05-14] MEDS: FUROSEMIDE 40 MG/4 ML INJ IV SCH ×2 (06:20→18:37)
[2019-05-14] MEDS ORDERED: POTASSIUM CHLORIDE ER 20 MEQ TAB PO SCH (08:30)
[2019-05-14] MEDS: hydrALAZINE 100 MG TAB PO SCH ×3 (08:39→20:12)
[2019-05-14] MEDS: LOSARTAN 50 MG TAB PO SCH (09:27)
[2019-05-14] MEDS: carvediloL 3.125 MG TAB PO SCH (09:27)
[2019-05-14] MEDS: APIXABAN 5 MG TAB PO SCH ×2 (09:27→22:00)
--- NOTE | 2019-05-14 09:54 | Consultation ---
History of Present Illness Consult date: 05/14/19 Requesting physician: PRECIOUS SHEEHAN Consult reason: congestive heart failure History of present illness: The pt is an 83 YO male with a past medical history of CAD s/p CABG in 2008, HFrEF, ICMP, NSVT, LifeVest in place, atrial fibrillation, anticoagulated on Eliquis, HTN, DM, PVD, chronic BLE wounds for which he is followed by wound care. He is followed by [place] cardiology. He presented with c/o progressively worsening SOB, orthopnea and BLE swelling for 1 day prior to arrival. He denies any chest pain, palpitations, n/v, diaphoresis, dizziness or syncope. He reports compliance with his home medication regimen. Echo done 02/2019 showed EF 25-30%, dilated LV, dilated LA and RA, grade 2 diastolic dysfunction, mild to mod [place]. Past History Past Medical History: atrial fib, CAD, diabetes, heart failure, hypertension, other (PVD) Past Surgical History: CABG Social history: . denies: smoking, alcohol abuse, prescription drug abuse Family history: diabetes, hypertension Medications and Allergies Allergies Allergy/AdvReac Type Severity Reaction Status Date / Time morphine AdvReac Vomiting Verified 10/31/17 14:15 Home Medications Medication Instructions Recorded Confirmed Last Taken Type Apixaban [Eliquis] 5 mg PO Q12HR tablet 02/27/19 05/13/19 Unknown Rx AtorvaSTATin [Lipitor] 20 mg PO QHS tablet 02/27/19 05/13/19 Unknown Rx Furosemide [Lasix TAB] 40 mg PO BID #60 tablet 02/27/19 05/13/19 Unknown Rx Linagliptin [Tradjenta] 5 mg PO QDDIAB tablet 02/27/19 05/13/19 Unknown Rx Lispro Insulin [HumaLOG] 0 unit SUB-Q ACHS units 02/27/19 05/13/19 Unknown Rx Losartan [Cozaar] 100 mg PO QDAY tablet 02/27/19 05/13/19 Unknown Rx carvediloL [Coreg] 3.125 mg PO BID tablet 02/27/19 05/13/19 Unknown Rx hydrALAZINE [Apresoline TAB] 100 mg PO TID tab 02/27/19 05/13/19 Unknown Rx metFORMIN XR [Glucophage XR] 500 mg PO QDDIAB tablet 02/27/19 05/13/19 Unknown Rx Active Meds: Active Medications Acetaminophen (Tylenol) 650 mg PO Q4H PRN PRN Reason: Pain MILD(1-3)/Fever >100.5/LARSON Last Admin: 05/13/19 21:21 Dose: 650 mg Documented by: Albuterol (Proventil) 2.5 mg IH Q4HRT PRN PRN Reason: Shortness Of Breath Apixaban (Eliquis) 5 mg PO Q12HR [facility]; Protocol Last Admin: 05/14/19 09:27 Dose: 5 mg Documented by: Atorvastatin Calcium (Lipitor) 20 mg PO QHS [facility] Last Admin: 05/13/19 21:21 Dose: 20 mg Documented by: Carvedilol (Coreg) 3.125 mg PO BID [facility] Last Admin: 05/14/19 09:27 Dose: 3.125 mg Documented by: Furosemide (Lasix) 40 mg IV BID@0600,1800 [facility] Last Admin: 05/14/19 06:20 Dose: 40 mg Documented by: Hydralazine HCl (Apresoline) 100 mg PO TID [facility] Last Admin: 05/14/19 08:39 Dose: 100 mg Documented by: Losartan Potassium (Cozaar) 100 mg PO QDAY [facility] Last Admin: 05/14/19 09:27 Dose: 100 mg Documented by: Ondansetron HCl (Zofran) 4 mg IV Q8H PRN PRN Reason: Nausea And Vomiting Potassium Chloride (K-Dur) 40 meq PO ONCE [facility] Stop: 05/14/19 12:00 Last Admin: 05/14/19 08:39 Dose: 40 meq Documented by: Sodium Chloride (Sodium Chloride Flush Syringe 10 Ml) 10 ml IV BID [facility] Last Admin: 05/14/19 09:28 Dose: 10 ml Documented by: Sodium Chloride (Sodium Chloride Flush Syringe 10 Ml) 10 ml IV PRN PRN PRN Reason: LINE FLUSH Review of Systems Constitutional: no fever, no chills, no sweats Ears, nose, mouth and throat: no ear pain, no nose pain, no sinus pressure, no sinus pain Cardiovascular: orthopnea, edema, shortness of breath, dyspnea on exertion, paroxysmal nocturnal dyspnea, leg edema, no chest pain, no palpitations, no rapid/irregular heart beat, no syncope, no lightheadedness Respiratory: shortness of breath, dyspnea on exertion, no cough, no congestion, no wheezing, no pain on inspiration Gastrointestinal: no abdominal pain, no nausea, no vomiting, no diarrhea, no constipation, no change in bowel habits Genitourinary Male: no dysuria, no hematuria, no flank pain, no discharge, no urinary frequency, no urinary hesitancy Musculoskeletal: no neck stiffness, no neck pain, no shooting arm pain, no arm numbness/tingling, no low back pain, no shooting leg pain Integumentary: wounds (chronic BLE wounds), no rash, no pruritis, no redness, no sores Neurological: no head injury, no paralysis, no weakness, no parathesias, no numbness, no tingling, no seizures, no syncope Psychiatric: no anxiety Endocrine: no cold intolerance, no heat intolerance Hematologic/Lymphatic: no easy bruising, no easy bleeding Allergic/Immunologic: no urticaria, no wheezing Physical Examination Vital Signs Temp Pulse Resp BP Pulse Ox 98.3 F 68 20 145/64 96 05/13/19 08:30 05/13/19 08:30 05/13/19 08:30 05/13/19 08:30 05/13/19 08:30 General appearance: no acute distress HEENT: Positive: PERRL, Normocephaly, Mucus Membranes Moist Neck: Positive: neck supple, trachea midline Cardiac: Positive: irregularly irregular, S1/S2 Lungs: Positive: Decreased Breath Sounds Neuro: Positive: Grossly Intact Abdomen: Negative: Tender Skin: Positive: Other (BLE wounds, covered with dressings) Musculoskeletal: No Pain Extremities: Present: +2 Edema (BLE ) Results 05/13/19 09:35 05/14/19 04:15 Coagulation 05/13/19 Range/Units 09:35 PT 14.7 (12.2-14.9) Sec. INR 1.13 (0.87-1.13) APTT 22.5 L (24.2-36.6) Sec. Lipids 05/13/19 Range/Units 09:35 Triglycerides 49 (2-149) mg/dL Cholesterol 102 (50-199) mg/dL HDL Cholesterol 53 (40-59) mg/dL Cholesterol/HDL Ratio 1.92 % CBC 05/13/19 Range/Units 09:35 WBC 7.7 (4.5-11.0) K/mm3 RBC 3.14 L (3.65-5.03) M/mm3 Hgb 9.4 L (11.8-15.2) gm/dl Hct 28.6 L (35.5-45.6) % Plt Count 216 (140-440) K/mm3 Lymph # 1.0 L (1.2-5.4) K/mm3 Leon # 0.7 (0.0-0.8) K/mm3 Eos # 0.0 (0.0-0.4) K/mm3 Baso # 0.1 (0.0-0.1) K/mm3 Comprehensive Metabolic Panel 05/13/19 05/14/19 Range/Units 09:35 04:15 Sodium 144 146 H (137-145) mmol/L Potassium 3.8 3.2 L (3.6-5.0) mmol/L Chloride 104.2 104.5 (98-107) mmol/L Carbon Dioxide 26 27 (22-30) mmol/L BUN 10 11 (9-20) mg/dL Creatinine 0.8 0.7 L (0.8-1.5) mg/dL Glucose 105 H 137 H (75-100) mg/dL Calcium 7.9 L 7.6 L (8.4-10.2) mg/dL - Imaging and Cardiology Echo: report reviewed ( 02/2019 showed EF 25-30%, dilated LV, dilated LA and RA, grade 2 diastolic dysfunction, mild to mod [place].) EKG: report reviewed, image reviewed EKG interpretations - Telemetry EKG Rhythm: Atrial Fibrillation - EKG Supraventricular dysrhythmia: atrial fibrillation Assessment and Plan Acute HFrEF Echo done 02/2019 showed EF 25-30%, dilated LV, dilated LA and RA, grade 2 diastolic dysfunction, mild to mod [place]. Agree with IV lasix BID. Cont coreg and losartan. LifeVest in situ. ICMP Echo done 02/2019 showed EF 25-30%, dilated LV, dilated LA and RA, grade 2 diastolic dysfunction, mild to mod [place]. Cont GDMT and IV diuresis as tolerated. LifeVest in situ. [facility] NSVT LifeVest in place. [facility] candidacy [facility] be [facility]. Cont coreg and monitor electrolytes. Cont to monitor on telemetry. CAD s/p CABG in 2008 Cont statin. Chronic atrial fibrillation Rate controlled. Cont Coreg and Eliquis. HTN Stable. Cont hydralazine, coreg and losartan. DM Per primary. PVD / Chronic BLE wounds Wound care has been consulted. The patient has been seen in conjunction with Dr. Atwood who agrees with the assessment and plan of care.
[2019-05-14] MEDS ORDERED: carvediloL 3.125 MG TAB PO SCH (10:05)
[2019-05-14] MEDS ORDERED: carvediloL 6.25 MG TAB PO SCH (10:30)
[2019-05-14] MEDS: ACETAMINOPHEN 325 MG TAB PO PRN (11:09)
[2019-05-14] MEDS ORDERED: carvediloL 3.125 MG TAB PO ONE (12:00)
--- NOTE | 2019-05-14 15:58 | Progress Note ---
Assessment and Plan Assessment and plan: Patient is a 83 yo man with a history of CAD s/p CABG in 2008, HFrEF, ICMP, NSVT, LifeVest in place, atrial fibrillation, anticoagulated on Eliquis, HTN, DM type 2, PVD and chronic BLE wounds with bilateral mid-calf casts in place for which he is followed by wound care. He is followed by [place] [facility]ology. He presented with c/o progressively worsening SOB. He was found to have CHF Decompensation, as well as acute hypoxemic respiratory failure. Patient pulse oximetry fluctuates on room air between 85 and 88%. Patient treated with supplemental oxygen with mild improvement in symptoms. Echo done 02/2019 showed EF 25-30%, dilated LV, dilated LA and RA, grade 2 diastolic dysfunction, mild to mod [place]. * EKG Rhythm: Atrial Fibrillation * pCXR showed no acute findings * v/q scan showed low probability for PE Acute on chronic systolic heart failure: treat with IV lasix BID. Acute hypoxic respiratory failure requiring O2 supplementation: on 2.5 liters o 2, will try daily weaning attempts as CHF improves ICMP with NSVT: LifeVest in situ. [facility] candidacy [facility], Cont coreg and monitor electrolytes, Cont to monitor on telemetry. CAD s/p CABG in 2008: Cont statin. Chronic atrial fibrillation: Rate controlled. Cont Coreg and Eliquis. HTN Stable. Cont hydralazine, coreg and losartan. Type 2 DM: treat with SSI added to home regimen and modify diet to ADA PVD / Chronic BLE wounds: Wound care has been consulted. DVT prophylaxis: SCD to bilateral lower extremities while in bed, continue therapeutic anticoagulation. Disposition: continue inpatient care, anticipate d/c in 1-2 days. Will need home o2 evaluation if unable to wean off O2 in next day or so History Interval history: Patient was seen and examined. Follow-up on current diagnosis of CHF, improved with O2. Overnight uneventful as no events directly reported to me. Patient denies any chest pain, nausea/vomiting or severe headaches. Imaging, nursing note, chart, labs and old chart reviewed. Discussed with patient. Hospitalist Physical - Physical exam Narrative exam: Gen: chonically disable appearing, WDWN, NAD, Awake, Alert, Orientated x 3 HEENT: NCAT, EOMI, PERRL, OP Clear Neck: supple, no adenopathy, no thyromegaly, no JVD CVS/Heart: irreg irreg, normal S1S2, pulses present bilaterally Chest/Lungs: diminished bs bilaterally, Symmetrical chest expansion, good air e ntry bilaterally GI/Abdomen: soft, NTND, good bowel sounds, no guarding or rebound /Bladder: no suprapubic tenderness, no CVA or paraspinal tenderness Extermity/Skin: bilateral mid-calf cast with old/ulcerated toes MSK: FROM x 4 Neuro: CN 2-12 grossly intact, no new focal deficits Psych: calm - Constitutional Vitals: Temp Pulse Resp BP Pulse Ox 98.1 F 68 24 106/47 99 05/14/19 14:10 05/14/19 14:10 05/14/19 14:10 05/14/19 14:10 05/14/19 14:10 General appearance: Present: no acute distress Results - Labs CBC & Chem 7: 05/13/19 09:35 05/14/19 04:15 Labs: Laboratory Last Values WBC 7.7 K/mm3 (4.5-11.0) 05/13/19 09:35 RBC 3.14 M/mm3 (3.65-5.03) L 05/13/19 09:35 Hgb 9.4 gm/dl (11.8-15.2) L 05/13/19 09:35 Hct 28.6 % (35.5-45.6) L 05/13/19 09:35 MCV 91 fl (84-94) 05/13/19 09:35 MCH 30 pg (28-32) 05/13/19 09:35 MCHC 33 % (32-34) 05/13/19 09:35 RDW 16.9 % (13.2-15.2) H 05/13/19 09:35 Plt Count 216 K/mm3 (140-440) 05/13/19 09:35 Lymph % (Auto) 13.1 % (13.4-35.0) L 05/13/19 09:35 Stephens % (Auto) 8.7 % (0.0-7.3) H 05/13/19 09:35 Eos % (Auto) 0.4 % (0.0-4.3) 05/13/19 09:35 Baso % (Auto) 0.9 % (0.0-1.8) 05/13/19 09:35 Lymph # 1.0 K/mm3 (1.2-5.4) L 05/13/19 09:35 Stephens # 0.7 K/mm3 (0.0-0.8) 05/13/19 09:35 Eos # 0.0 K/mm3 (0.0-0.4) 05/13/19 09:35 Baso # 0.1 K/mm3 (0.0-0.1) 05/13/19 09:35 Seg Neutrophils % 76.9 % (40.0-70.0) H 05/13/19 09:35 Seg Neutrophils # 5.9 K/mm3 (1.8-7.7) 05/13/19 09:35 PT 14.7 Sec. (12.2-14.9) 05/13/19 09:35 INR 1.13 (0.87-1.13) 05/13/19 09:35 APTT 22.5 Sec. (24.2-36.6) L 05/13/19 09:35 D-Dimer 1226.80 ng/mlDDU (0-234) H 05/13/19 09:35 Sodium 146 mmol/L (137-145) H 05/14/19 04:15 Potassium 3.2 mmol/L (3.6-5.0) L 05/14/19 04:15 Chloride 104.5 mmol/L (98-107) 05/14/19 04:15 Carbon Dioxide 27 mmol/L (22-30) 05/14/19 04:15 Anion Gap 18 mmol/L 05/14/19 04:15 BUN 11 mg/dL (9-20) 05/14/19 04:15 Creatinine 0.7 mg/dL (0.8-1.5) L 05/14/19 04:15 Estimated GFR > 60 ml/min 05/14/19 04:15 BUN/Creatinine Ratio 16 % 05/14/19 04:15 Glucose 137 mg/dL (75-100) H 05/14/19 04:15 POC Glucose 157 (70-105) H 05/13/19 17:42 Calcium 7.6 mg/dL (8.4-10.2) L 05/14/19 04:15 Troponin T 0.038 ng/mL (0.00-0.029) H 05/13/19 15:00 NT-Pro-B Natriuret Pep 2083 pg/mL (0-900) H 05/13/19 09:35 Triglycerides 49 mg/dL (2-149) 05/13/19 09:35 Cholesterol 102 mg/dL (50-199) 05/13/19 09:35 LDL Cholesterol Direct 46 mg/dL (50-130) L 05/13/19 09:35 HDL Cholesterol 53 mg/dL (40-59) 05/13/19 09:35 Cholesterol/HDL Ratio 1.92 % 05/13/19 09:35 Active Medications - Current Medications Current Medications: Generic Name Dose Route Start Last Admin Trade Name Freq PRN Reason Stop Dose Admin Acetaminophen 650 mg 05/13/19 15:11 05/14/19 11:09 Tylenol PO 650 mg Q4H PRN Administration Pain MILD(1-3)/Fever >100.5/LARSON Albuterol 2.5 mg 05/13/19 15:11 Proventil IH Q4HRT PRN Shortness Of Breath Apixaban 5 mg 05/13/19 22:00 05/14/19 09:27 Eliquis PO 5 mg Q12HR CARMEN Administration Protocol Atorvastatin Calcium 20 mg 05/13/19 22:00 05/13/19 21:21 Lipitor PO 20 mg QHS CARMEN Administration Carvedilol 6.25 mg 05/14/19 22:00 Coreg PO BID CARMEN Furosemide 40 mg 05/13/19 18:00 05/14/19 06:20 Lasix IV 40 mg BID@0600,1800 CARMEN Administration Hydralazine HCl 100 mg 05/13/19 20:00 05/14/19 14:11 Apresoline PO Not Given TID CARMEN Losartan Potassium 100 mg 05/14/19 10:00 05/14/19 09:27 Cozaar PO 100 mg QDAY CARMEN Administration Ondansetron HCl 4 mg 05/13/19 15:11 Zofran IV Q8H PRN Nausea And Vomiting Sodium Chloride 10 ml 05/13/19 22:00 05/14/19 09:28 Sodium Chloride Flush Syringe 10 Ml IV 10 ml BID CARMEN Administration Sodium Chloride 10 ml 05/13/19 15:11 Sodium Chloride Flush Syringe 10 Ml IV PRN PRN LINE FLUSH Nutrition/Malnutrition Assess - Dietary Evaluation Nutrition/Malnutrition Findings: Nutrition Notes Start: 05/14/19 15:00 Freq: Status: Active Protocol: Document 05/14/19 15:00 AP (Rec: 05/14/19 15:17 AP [email or web address]) Co-Sign 05/14/19 15:00 LM Nutrition Notes Need for Assessment generated from: sales representative publications,Education Initial or Follow up Assessment Current Diagnosis Diabetes,Hypertension,Heart Failure Other Pertinent Diagnosis SOB, PVD, CABG, Afib Current Diet Cardiac Labs/Tests Na 146 K 3.2 Cr 0.7 BG 137 Pertinent Medications Lasix Height 6 ft 3 in Weight 133.3 kg [place] Body Weight (kg) 89.09 BMI 36.7 Intake Prior to Admission Good Weight Status Obese Subjective/Other Information RN consult for DM diet ed and skin risk. Neto score 15, bilat foot wounds. Pt reports decent appetite, no recent weight loss. RN notes pt consumes 75% of meals. Pt states he did not want DM education, has had DM for many years. Burn Absent Trauma Absent GI Symptoms None Current % PO Good (75-100%) Minimum of two criteria No physical signs of malnutrition #1 Nutrition Diagnosis Increased nutrient needs ( specify in comment below) Etiology Wound healing As Evidenced by Signs and Symptoms BLE wounds Is patient on ventilator? No Is Patient Ambulatory and/or Out of Bed Yes [facility] [ 2747.719 [id number]] Kcal/Kg value to use for calculation 16 Approximate Energy Requirements Using 2133 kcal/Kg Calculation Used for Recommendations Kcal/kg Additional Notes PRO: 111-133g/day (89 kg/IBW) Fluid: 1ml/kcal or per MD Nutrition Intervention Change Diet Order: Continue cardiac diet Add Supplement/Snack (indicate name/kcal Ensure Enlive Chocolate daily /protein ) Provides kCal: 350 Provides Protein (gm) 20 RD phone number provided Yes Patient aware of follow up options Yes Goal #1 Pt meet 80% of kcal/PRO needs Goal #2 wound healing Anticipated Discharge Needs: Cardiac diet Follow-Up By: 05/16/19 Additional Comments F/U for PO/ONS intakes.
[2019-05-14] MEDS: carvediloL 6.25 MG TAB PO SCH (22:00)
[2019-05-15] MEDS: FUROSEMIDE 40 MG/4 ML INJ IV SCH (05:46)
[2019-05-15 07:11] LABS: BUN/Creatinine Ratio 16; Blood Urea Nitrogen 14 mg/dL (9-20); Calcium 7.6 mg/dL (8.4-10.2); Hemolysis Index 3
[2019-05-15] MEDS: hydrALAZINE 100 MG TAB PO SCH ×3 (08:29→20:37)
[2019-05-15] MEDS: APIXABAN 5 MG TAB PO SCH ×2 (10:14→22:27)
[2019-05-15] MEDS: LOSARTAN 50 MG TAB PO SCH (10:14)
[2019-05-15] MEDS: carvediloL 6.25 MG TAB PO SCH ×2 (10:15→22:28)
[2019-05-15] MEDS ORDERED: DEXTROSE 50% IN WATER (25GM) 50 ML SYRINGE IV PRN (10:36)
--- NOTE | 2019-05-15 10:37 | Progress Note ---
Assessment and Plan Acute HFrEF Echo done 02/2019 showed EF 25-30%, dilated LV, dilated LA and RA, grade 2 diastolic dysfunction, mild to mod [place]. Cont IV lasix BID. Cont strict I&Os and daily weights. Cont coreg and losartan. LifeVest in place. ICMP Echo done 02/2019 showed EF 25-30%, dilated LV, dilated LA and RA, grade 2 diastolic dysfunction, mild to mod [place]. Cont GDMT and IV diuresis as tolerated. LifeVest in place. [facility] NSVT LifeVest in place. [facility] candidacy [facility] be [facility]. Cont coreg and monitor electrolytes. Cont to monitor on telemetry. CAD s/p CABG in 2008 Cont statin. Chronic atrial fibrillation and atrial flutter Rate controlled. Cont Coreg and Eliquis. HTN Stable. Cont hydralazine, coreg and losartan. DM Per primary. PVD / Chronic BLE wounds Wound care is following. The patient has been seen in conjunction with Dr. Atwood who agrees with the assessment and plan of care. Subjective Date of service: 05/15/19 Principal diagnosis: HF Interval history: pt resting in bed, states he is feeling better today. tele reviewed - in AFlutter with HR 50s - 60s overnight. Objective Last Vital Signs Temp 98.7 F 05/15/19 08:25 Pulse 57 L 05/15/19 10:15 Resp 20 05/15/19 08:25 BP 137/52 05/15/19 10:15 Pulse Ox 99 05/15/19 08:41 - Physical Examination General: No Apparent Distress HEENT: Positive: PERRL, Normocephaly, Mucus Membranes Moist Neck: Positive: neck supple, trachea midline Cardiac: Positive: irregularly irregular, S1/S2 Lungs: Positive: Decreased Breath Sounds Neuro: Positive: Grossly Intact Abdomen: Negative: Tender Skin: Positive: Other (BLE wounds, covered with dressings) Musculoskeletal: No Pain Extremities: Present: +2 Edema (BLE ) - Labs and Meds Comprehensive Metabolic Panel 05/15/19 Range/Units 05:44 Sodium 147 H (137-145) mmol/L Potassium 3.6 (3.6-5.0) mmol/L Chloride 105.6 (98-107) mmol/L Carbon Dioxide 30 (22-30) mmol/L BUN 14 (9-20) mg/dL Creatinine 0.9 (0.8-1.5) mg/dL Glucose 146 H (75-100) mg/dL Calcium 7.6 L (8.4-10.2) mg/dL - Imaging and Cardiology EKG: report reviewed, image reviewed Echo: report reviewed ( 02/2019 showed EF 25-30%, dilated LV, dilated LA and RA, grade 2 diastolic dysfunction, mild to mod [place].) - Telemetry EKG Rhythm: Atrial Flutter
--- NOTE | 2019-05-15 10:40 | Progress Note ---
Assessment and Plan Assessment and plan: Patient is a 83 yo man with a history of CAD s/p CABG in 2008, HFrEF, ICMP, NSVT, LifeVest in place, atrial fibrillation, anticoagulated on Eliquis, HTN, DM type 2, Op dsyphonia under ENT, PVD and chronic BLE wounds with bilateral mid- calf casts in place for which he is followed by wound care. He is followed by [place] cardiology. He presented with c/o progressively worsening SOB. He was found to have CHF Decompensation, as well as acute hypoxemic respiratory failure. Patient pulse oximetry fluctuates on room air between 85 and 88%. Patient treated with supplemental oxygen with mild improvement in symptoms. Echo done 02/2019 showed EF 25-30%, dilated LV, dilated LA and RA, grade 2 diastolic dysfunction, mild to mod [place]. * EKG Rhythm: Atrial Fibrillation * pCXR showed no acute findings * v/q scan showed low probability for PE Acute on chronic systolic heart failure: treat with IV lasix BID. Acute hypoxic respiratory failure requiring O2 supplementation: on 2.5 liters o2, will try daily weaning attempts as CHF improves ICMP with NSVT: LifeVest in situ. [facility], Cont coreg and monitor electrolytes, Cont to monitor on telemetry. CAD s/p CABG in 2008: Cont statin. Chronic atrial fibrillation: Rate controlled. Cont Coreg and Eliquis. HTN Stable. Cont hydralazine, coreg and losartan. Type 2 DM: treat with SSI added to home regimen and modify diet to ADA PVD / Chronic BLE wounds: Wound care done, cast removed DVT prophylaxis: SCD to bilateral lower extremities while in bed, continue therapeutic anticoagulation. Disposition: continue inpatient care still has fluid overload, but improving, will cut back lasix as developing contraction alkalosis. Home o2 evaluation, life vest battery , company on their way. Hopefully d/c tomorrow d/w [employer] Dr. Atwood History Interval history: Patient was seen and examined. Follow-up on current diagnosis of CHF, improved with O2. Overnight uneventful as no events directly reported to me. Patient denies any chest pain, nausea/vomiting or severe headaches. Imaging, nursing note, chart, labs and old chart reviewed. Discussed with patient. Hospitalist Physical - Physical exam Narrative exam: Gen: chonically disable appearing, WDWN, NAD, Awake, Alert, Orientated x 3 HEENT: NCAT, EOMI, PERRL, OP Clear Neck: supple, no adenopathy, no thyromegaly, improved JVD CVS/Heart: irreg irreg, normal S1S2, pulses present bilaterally Chest/Lungs: diminished bs bilaterally, Symmetrical chest expansion, good air entry bilaterally GI/Abdomen: soft, NTND, good bowel sounds, no guarding or rebound /Bladder: no suprapubic tenderness, no CVA or paraspinal tenderness Extermity/Skin: bilateral venous leg changes, see wound care pic MSK: FROM x 4 Neuro: CN 2-12 grossly intact, no new focal deficits Psych: calm - Constitutional Vitals: Temp Pulse Resp BP Pulse Ox 98.7 F 57 L 20 137/52 99 05/15/19 08:25 05/15/19 10:15 05/15/19 08:25 05/15/19 10:15 05/15/19 08:41 General appearance: Present: no acute distress Results - Labs CBC & Chem 7: 05/13/19 09:35 05/15/19 05:44 Labs: Laboratory Last Values WBC 7.7 K/mm3 (4.5-11.0) 05/13/19 09:35 RBC 3.14 M/mm3 (3.65-5.03) L 05/13/19 09:35 Hgb 9.4 gm/dl (11.8-15.2) L 05/13/19 09:35 Hct 28.6 % (35.5-45.6) L 05/13/19 09:35 MCV 91 fl (84-94) 05/13/19 09:35 MCH 30 pg (28-32) 05/13/19 09:35 MCHC 33 % (32-34) 05/13/19 09:35 RDW 16.9 % (13.2-15.2) H 05/13/19 09:35 Plt Count 216 K/mm3 (140-440) 05/13/19 09:35 Lymph % (Auto) 13.1 % (13.4-35.0) L 05/13/19 09:35 [place] % (Auto) 8.7 % (0.0-7.3) H 05/13/19 09:35 Eos % (Auto) 0.4 % (0.0-4.3) 05/13/19 09:35 Baso % (Auto) 0.9 % (0.0-1.8) 05/13/19 09:35 Lymph # 1.0 K/mm3 (1.2-5.4) L 05/13/19 09:35 [place] # 0.7 K/mm3 (0.0-0.8) 05/13/19 09:35 Eos # 0.0 K/mm3 (0.0-0.4) 05/13/19 09:35 Baso # 0.1 K/mm3 (0.0-0.1) 05/13/19 09:35 Seg Neutrophils % 76.9 % (40.0-70.0) H 05/13/19 09:35 Seg Neutrophils # 5.9 K/mm3 (1.8-7.7) 05/13/19 09:35 PT 14.7 Sec. (12.2-14.9) 05/13/19 09:35 INR 1.13 (0.87-1.13) 05/13/19 09:35 APTT 22.5 Sec. (24.2-36.6) L 05/13/19 09:35 D-Dimer 1226.80 ng/mlDDU (0-234) H 05/13/19 09:35 Sodium 147 mmol/L (137-145) H 05/15/19 05:44 Potassium 3.6 mmol/L (3.6-5.0) 05/15/19 05:44 Chloride 105.6 mmol/L (98-107) 05/15/19 05:44 Carbon Dioxide 30 mmol/L (22-30) 05/15/19 05:44 Anion Gap 15 mmol/L 05/15/19 05:44 BUN 14 mg/dL (9-20) 05/15/19 05:44 Creatinine 0.9 mg/dL (0.8-1.5) 05/15/19 05:44 Estimated GFR > 60 ml/min 05/15/19 05:44 BUN/Creatinine Ratio 16 % 05/15/19 05:44 Glucose 146 mg/dL (75-100) H 05/15/19 05:44 POC Glucose 177 (70-105) H 05/15/19 08:38 Calcium 7.6 mg/dL (8.4-10.2) L 05/15/19 05:44 Troponin T 0.038 ng/mL (0.00-0.029) H 05/13/19 15:00 NT-Pro-B Natriuret Pep 2083 pg/mL (0-900) H 05/13/19 09:35 Triglycerides 49 mg/dL (2-149) 05/13/19 09:35 Cholesterol 102 mg/dL (50-199) 05/13/19 09:35 LDL Cholesterol Direct 46 mg/dL (50-130) L 05/13/19 09:35 HDL Cholesterol 53 mg/dL (40-59) 05/13/19 09:35 Cholesterol/HDL Ratio 1.92 % 05/13/19 09:35 Active Medications - Current Medications Current Medications: Generic Name Dose Route Start Last Admin Trade Name Freq PRN Reason Stop Dose Admin Acetaminophen 650 mg 05/13/19 15:11 05/14/19 11:09 Tylenol PO 650 mg Q4H PRN Administration Pain MILD(1-3)/Fever >100.5/LARSON Albuterol 2.5 mg 05/13/19 15:11 Proventil IH Q4HRT PRN Shortness Of Breath Apixaban 5 mg 05/13/19 22:00 05/15/19 10:14 Eliquis PO 5 mg Q12HR CARMEN Administration Protocol Atorvastatin Calcium 20 mg 05/13/19 22:00 05/14/19 22:00 Lipitor PO 20 mg QHS CARMEN Administration Carvedilol 6.25 mg 05/14/19 22:00 05/15/19 10:15 Coreg PO 6.25 mg BID CARMEN Administration Furosemide 40 mg 05/16/19 10:00 Lasix IV QDAY CARMEN Hydralazine HCl 100 mg 05/13/19 20:00 05/15/19 08:29 Apresoline PO 100 mg TID CARMEN Administration Losartan Potassium 100 mg 05/14/19 10:00 05/15/19 10:14 Cozaar PO 100 mg QDAY CARMEN Administration Ondansetron HCl 4 mg 05/13/19 15:11 Zofran IV Q8H PRN Nausea And Vomiting Sodium Chloride 10 ml 05/13/19 22:00 05/15/19 10:15 Sodium Chloride Flush Syringe 10 Ml IV 10 ml BID CARMEN Administration Sodium Chloride 10 ml 05/13/19 15:11 Sodium Chloride Flush Syringe 10 Ml IV PRN PRN LINE FLUSH Nutrition/Malnutrition Assess - Dietary Evaluation Nutrition/Malnutrition Findings: Nutrition Notes Start: 05/14/19 15:00 Freq: Status: Active Protocol: Document 05/14/19 15:00 AP (Rec: 05/14/19 15:17 AP [email or web address]) Co-Sign 05/14/19 15:00 LM Nutrition Notes Need for Assessment generated from: data modeler,Education Initial or Follow up Assessment Current Diagnosis Diabetes,Hypertension,Heart Failure Other Pertinent Diagnosis SOB, PVD, CABG, Afib Current Diet Cardiac Labs/Tests Na 146 K 3.2 Cr 0.7 BG 137 Pertinent Medications Lasix Height 6 ft 3 in Weight 133.3 kg [place] Body Weight (kg) 89.09 BMI 36.7 Intake Prior to Admission Good Weight Status Obese Subjective/Other Information RN consult for DM diet ed and skin risk. Neto score 15, bilat foot wounds. Pt reports decent appetite, no recent weight loss. RN notes pt consumes 75% of meals. Pt states he did not want DM education, has had DM for many years. Burn Absent Trauma Absent GI Symptoms None Current % PO Good (75-100%) Minimum of two criteria No physical signs of malnutrition #1 Nutrition Diagnosis Increased nutrient needs ( specify in comment below) Etiology Wound healing As Evidenced by Signs and Symptoms BLE wounds Is patient on ventilator? No Is Patient Ambulatory and/or Out of Bed Yes REE-([place]-[facility]-ambulatory/OOB) [ 2747.719 NUTR.MSJOOB] Kcal/Kg value to use for calculation 16 Approximate Energy Requirements Using 2133 kcal/Kg Calculation Used for Recommendations Kcal/kg Additional Notes PRO: 111-133g/day (89 kg/IBW) Fluid: 1ml/kcal or per MD Nutrition Intervention Change Diet Order: Continue cardiac diet Add Supplement/Snack (indicate name/kcal Ensure Enlive Chocolate daily /protein ) Provides kCal: 350 Provides Protein (gm) 20 RD phone number provided Yes Patient aware of follow up options Yes Goal #1 Pt meet 80% of kcal/PRO needs Goal #2 wound healing Anticipated Discharge Needs: Cardiac diet Follow-Up By: 05/16/19 Additional Comments F/U for PO/ONS intakes.
[2019-05-15] MEDS: INSULIN REGULAR, HUMAN 100 UNITS/1 ML SUB-Q SCH ×3 (12:43→22:28)
[2019-05-16 05:48] LABS: BUN/Creatinine Ratio 18; Blood Urea Nitrogen 16 mg/dL (9-20); Calcium 7.7 mg/dL (8.4-10.2); Hemolysis Index 1
[2019-05-16] MEDS: hydrALAZINE 100 MG TAB PO SCH ×3 (08:10→21:42)
[2019-05-16] MEDS: INSULIN REGULAR, HUMAN 100 UNITS/1 ML SUB-Q SCH ×4 (08:40→21:44)
[2019-05-16] MEDS: APIXABAN 5 MG TAB PO SCH ×2 (09:59→21:42)
[2019-05-16] MEDS: carvediloL 6.25 MG TAB PO SCH ×2 (10:01→23:38)
[2019-05-16] MEDS: LOSARTAN 50 MG TAB PO SCH (10:01)
[2019-05-16] MEDS: FUROSEMIDE 40 MG/4 ML INJ IV SCH (10:02)
--- NOTE | 2019-05-16 11:09 | Progress Note ---
Assessment and Plan Acute HFrEF Echo done 02/2019 showed EF 25-30%, dilated LV, dilated LA and RA, grade 2 diastolic dysfunction, mild to mod [place]. Cont IV lasix BID. Cont strict I&Os and daily weights. Cont coreg and losartan. LifeVest in place - battery exchanged yesterday. [facility] Echo done 02/2019 showed EF 25-30%, dilated LV, dilated LA and RA, grade 2 diastolic dysfunction, mild to mod [place]. Cont GDMT and IV diuresis as tolerated. LifeVest in place. [facility] NSVT LifeVest in place. [facility]. Cont coreg and monitor electrolytes. Cont to monitor on telemetry. CAD s/p CABG in 2008 Cont statin. Chronic atrial fibrillation and atrial flutter Rate controlled. Cont Coreg and Eliquis. HTN Stable. Cont hydralazine, coreg and losartan. DM Per primary. PVD / Chronic BLE wounds Wound care is following. Cont present cardiac management. Hopeful d/c from cardiology standpoint in AM. The patient has been seen in conjunction with Dr. Atwood who agrees with the assessment and plan of care. Subjective Date of service: 05/16/19 Principal diagnosis: HF Interval history: pt resting in bed, states he is feeling better today. tele reviewed - in AFib/AFlutter with HR 70s. Objective Last Vital Signs Temp 98.2 F 05/16/19 08:12 Pulse 87 05/16/19 10:01 Resp 18 05/16/19 08:12 BP 156/60 05/16/19 10:01 Pulse Ox 100 05/16/19 08:12 - Physical Examination General: No Apparent Distress HEENT: Positive: PERRL, Normocephaly, Mucus Membranes Moist Neck: Positive: neck supple, trachea midline Cardiac: Positive: irregularly irregular, S1/S2 Lungs: Positive: Decreased Breath Sounds Neuro: Positive: Grossly Intact Abdomen: Negative: Tender Skin: Positive: Other (BLE wounds, covered with dressings) Musculoskeletal: No Pain Extremities: Present: +2 Edema (BLE ) - Labs and Meds Comprehensive Metabolic Panel 05/16/19 Range/Units 04:29 Sodium 148 H (137-145) mmol/L Potassium 3.6 (3.6-5.0) mmol/L Chloride 104.2 (98-107) mmol/L Carbon Dioxide 31 H (22-30) mmol/L BUN 16 (9-20) mg/dL Creatinine 0.9 (0.8-1.5) mg/dL Glucose 111 H (75-100) mg/dL Calcium 7.7 L (8.4-10.2) mg/dL - Imaging and Cardiology EKG: report reviewed, image reviewed Echo: report reviewed ( 02/2019 showed EF 25-30%, dilated LV, dilated LA and RA, grade 2 diastolic dysfunction, mild to mod [place].)
--- NOTE | 2019-05-16 17:10 | Progress Note ---
Assessment and Plan Assessment and plan: Patient is a 83 yo man with a history of CAD s/p CABG in 2008, HFrEF, ICMP, NSVT, LifeVest in place, atrial fibrillation, anticoagulated on Eliquis, HTN, DM type 2, Op dsyphonia under ENT, PVD and chronic BLE wounds with bilateral mid- calf casts in place for which he is followed by wound care. He is followed by [place] cardiology. He presented with c/o progressively worsening SOB. He was found to have CHF Decompensation, as well as acute hypoxemic respiratory failure. Patient pulse oximetry fluctuates on room air between 85 and 88%. Patient treated with supplemental oxygen with mild improvement in symptoms. Echo done 02/2019 showed EF 25-30%, dilated LV, dilated LA and RA, grade 2 diastolic dysfunction, mild to mod [place]. * EKG Rhythm: Atrial Fibrillation * pCXR showed no acute findings * v/q scan showed low probability for PE Acute on chronic systolic heart failure: treated with IV lasix BID, now once a day as patient was developing contraction alkalosis which resolved Acute hypoxic respiratory failure requiring O2 supplementation: on 2.5 liters o2, will try daily weaning attempts as CHF improves ICMP with NSVT: LifeVest in situ. [facility], Cont coreg and monitor electrolytes, Cont to monitor on telemetry. CAD s/p CABG in 2008: Cont statin. Chronic atrial fibrillation: Rate controlled. Cont Coreg and Eliquis. HTN Stable. Cont hydralazine, coreg and losartan. Type 2 DM: treat with SSI added to home regimen and modify diet to ADA PVD / Chronic BLE wounds: Wound care done, cast removed DVT prophylaxis: SCD to bilateral lower extremities while in bed, continue therapeutic anticoagulation. Disposition: continue inpatient care still has fluid overload, but improving, will cut back lasix as developing contraction alkalosis, so needs another day. Home o2 evaluation, life vest battery and replaced. d/c tomorrow per [facility]di[facility] History Interval history: Patient was seen and examined. Follow-up on current diagnosis of CHF, improved with O2. Overnight uneventful as no events directly reported to me. Patient denies any chest pain, nausea/vomiting or severe headaches. Imaging, nursing note, chart, labs and old chart reviewed. Discussed with patient. Hospitalist Physical - Physical exam Narrative exam: Gen: chonically disable appearing, WDWN, NAD, Awake, Alert, Orientated x 3 HEENT: NCAT, EOMI, PERRL, OP Clear Neck: supple, no adenopathy, no thyromegaly, improved JVD CVS/Heart: irreg irreg, normal S1S2, pulses present bilaterally Chest/Lungs: diminished bs bilaterally, Symmetrical chest expansion, good air entry bilaterally GI/Abdomen: soft, NTND, good bowel sounds, no guarding or rebound /Bladder: no suprapubic tenderness, no CVA or paraspinal tenderness Extermity/Skin: bilateral venous leg changes, see wound care pic MSK: FROM x 4 Neuro: CN 2-12 grossly intact, no new focal deficits Psych: calm - Constitutional Vitals: Temp Pulse Resp BP Pulse Ox 98.2 F 74 18 163/57 98 05/16/19 12:50 05/16/19 12:50 05/16/19 12:50 05/16/19 12:50 05/16/19 13:17 General appearance: Present: no acute distress Results - Labs CBC & Chem 7: 05/13/19 09:35 05/16/19 04:29 Labs: Laboratory Last Values WBC 7.7 K/mm3 (4.5-11.0) 05/13/19 09:35 RBC 3.14 M/mm3 (3.65-5.03) L 05/13/19 09:35 Hgb 9.4 gm/dl (11.8-15.2) L 05/13/19 09:35 Hct 28.6 % (35.5-45.6) L 05/13/19 09:35 MCV 91 fl (84-94) 05/13/19 09:35 MCH 30 pg (28-32) 05/13/19 09:35 MCHC 33 % (32-34) 05/13/19 09:35 RDW 16.9 % (13.2-15.2) H 05/13/19 09:35 Plt Count 216 K/mm3 (140-440) 05/13/19 09:35 Lymph % (Auto) 13.1 % (13.4-35.0) L 05/13/19 09:35 [place] % (Auto) 8.7 % (0.0-7.3) H 05/13/19 09:35 Eos % (Auto) 0.4 % (0.0-4.3) 05/13/19 09:35 Baso % (Auto) 0.9 % (0.0-1.8) 05/13/19 09:35 Lymph # 1.0 K/mm3 (1.2-5.4) L 05/13/19 09:35 [place] # 0.7 K/mm3 (0.0-0.8) 05/13/19 09:35 Eos # 0.0 K/mm3 (0.0-0.4) 05/13/19 09:35 Baso # 0.1 K/mm3 (0.0-0.1) 05/13/19 09:35 Seg Neutrophils % 76.9 % (40.0-70.0) H 05/13/19 09:35 Seg Neutrophils # 5.9 K/mm3 (1.8-7.7) 05/13/19 09:35 PT 14.7 Sec. (12.2-14.9) 05/13/19 09:35 INR 1.13 (0.87-1.13) 05/13/19 09:35 APTT 22.5 Sec. (24.2-36.6) L 05/13/19 09:35 D-Dimer 1226.80 ng/mlDDU (0-234) H 05/13/19 09:35 Sodium 148 mmol/L (137-145) H 05/16/19 04:29 Potassium 3.6 mmol/L (3.6-5.0) 05/16/19 04:29 Chloride 104.2 mmol/L (98-107) 05/16/19 04:29 Carbon Dioxide 31 mmol/L (22-30) H 05/16/19 04:29 Anion Gap 16 mmol/L 05/16/19 04:29 BUN 16 mg/dL (9-20) 05/16/19 04:29 Creatinine 0.9 mg/dL (0.8-1.5) 05/16/19 04:29 Estimated GFR > 60 ml/min 05/16/19 04:29 BUN/Creatinine Ratio 18 % 05/16/19 04:29 Glucose 111 mg/dL (75-100) H 05/16/19 04:29 POC Glucose 180 (70-105) H 05/16/19 13:04 Calcium 7.7 mg/dL (8.4-10.2) L 05/16/19 04:29 Troponin T 0.038 ng/mL (0.00-0.029) H 05/13/19 15:00 NT-Pro-B Natriuret Pep 2083 pg/mL (0-900) H 05/13/19 09:35 Triglycerides 49 mg/dL (2-149) 05/13/19 09:35 Cholesterol 102 mg/dL (50-199) 05/13/19 09:35 LDL Cholesterol Direct 46 mg/dL (50-130) L 05/13/19 09:35 HDL Cholesterol 53 mg/dL (40-59) 05/13/19 09:35 Cholesterol/HDL Ratio 1.92 % 05/13/19 09:35 Active Medications - Current Medications Current Medications: Generic Name Dose Route Start Last Admin Trade Name Freq PRN Reason Stop Dose Admin Acetaminophen 650 mg 05/13/19 15:11 05/14/19 11:09 Tylenol PO 650 mg Q4H PRN Administration Pain MILD(1-3)/Fever >100.5/LARSON Albuterol 2.5 mg 05/13/19 15:11 05/15/19 17:50 Proventil IH 2.5 mg Q4HRT PRN Administration Shortness Of Breath Apixaban 5 mg 05/13/19 22:00 05/16/19 09:59 Eliquis PO 5 mg Q12HR CARMEN Administration Protocol Atorvastatin Calcium 20 mg 05/13/19 22:00 05/15/19 22:27 Lipitor PO 20 mg QHS CARMEN Administration Carvedilol 6.25 mg 05/14/19 22:00 05/16/19 10:01 Coreg PO 6.25 mg BID CARMEN Administration Dextrose 50 ml 05/15/19 10:36 D50w (25gm) Syringe IV Q30MIN PRN Hypoglycemia Protocol Furosemide 40 mg 05/16/19 10:00 05/16/19 10:02 Lasix IV 40 mg QDAY CARMEN Administration Hydralazine HCl 100 mg 05/13/19 20:00 05/16/19 13:51 Apresoline PO 100 mg TID CARMEN Administration Insulin Human Regular 0 units 05/15/19 11:30 05/16/19 12:30 Humulin R SUB-Q 1 units ACHS CARMEN Administration Protocol Losartan Potassium 100 mg 05/14/19 10:00 05/16/19 10:01 Cozaar PO 100 mg QDAY CARMEN Administration Ondansetron HCl 4 mg 05/13/19 15:11 Zofran IV Q8H PRN Nausea And Vomiting Sodium Chloride 10 ml 05/13/19 22:00 05/16/19 10:00 Sodium Chloride Flush Syringe 10 Ml IV 10 ml BID CARMEN Administration Sodium Chloride 10 ml 05/13/19 15:11 Sodium Chloride Flush Syringe 10 Ml IV PRN PRN LINE FLUSH Nutrition/Malnutrition Assess - Dietary Evaluation Nutrition/Malnutrition Findings: Nutrition Notes Start: 05/14/19 15:00 Freq: Status: Active Protocol: Document 05/16/19 12:05 AP (Rec: 05/16/19 12:13 AP [id number]) Co-Sign 05/16/19 12:05 LP Nutrition Notes Initial or Follow up Reassessment Current Diagnosis Diabetes,Hypertension,Heart Failure Other Pertinent Diagnosis SOB, PVD, CABG, Afib Current Diet Cardiac/CC Labs/Tests Na 148 BG 111 Pertinent Medications Reviewed Height 6 ft 3 in Weight 133.6 kg [place] Body Weight (kg) 89.09 BMI 36.8 Intake Prior to Admission Good Weight Status Obese Subjective/Other Information F/U for intakes. Pt consued 100% of bfast. Pt asked for ONS. Percent of energy/protein needs met: 92%/70% Burn Absent Trauma Absent GI Symptoms None Current % PO Good (75-100%) Minimum of two criteria No physical signs of malnutrition #1 Nutrition Diagnosis Increased nutrient needs ( specify in comment below) Diagnosis Progress(for reassessment Continues documentation) Is patient on ventilator? No Is Patient Ambulatory and/or Out of Bed Yes [facility]OOB[facility] [ 2751.619 NUTR.MSJOOB] Kcal/Kg value to use for calculation 16 Approximate Energy Requirements Using 2138 kcal/Kg Calculation Used for Recommendations Kcal/kg Additional Notes PRO: 111-133g/day (89 kg/IBW) Fluid: 1ml/kcal or per MD Nutrition Intervention Change Diet Order: Continue cardiac diet/cc Add Supplement/Snack (indicate name/kcal Ensure high protein daily /protein ) Provides kCal: 160 Provides Protein (gm) 16 Goal #1 Pt meet 80% of kcal/PRO needs Goal #2 wound healing Anticipated Discharge Needs: Cardiac/CC diet Follow-Up By: 05/22/19 Additional Comments F/U for PO/ONS intakes.
[2019-05-17] MEDS: ACETAMINOPHEN 325 MG TAB PO PRN (02:24)
[2019-05-17 05:45] LABS: BUN/Creatinine Ratio 19; Blood Urea Nitrogen 19 mg/dL (9-20); Calcium 7.7 mg/dL (8.4-10.2); Hemolysis Index 3
[2019-05-17] MEDS: INSULIN REGULAR, HUMAN 100 UNITS/1 ML SUB-Q SCH ×4 (08:20→23:00)
[2019-05-17] MEDS: hydrALAZINE 100 MG TAB PO SCH ×3 (08:22→21:50)
[2019-05-17] MEDS: APIXABAN 5 MG TAB PO SCH ×2 (10:22→23:00)
[2019-05-17] MEDS: FUROSEMIDE 40 MG/4 ML INJ IV SCH (10:23)
[2019-05-17] MEDS: LOSARTAN 50 MG TAB PO SCH (10:23)
[2019-05-17] MEDS: carvediloL 6.25 MG TAB PO SCH ×2 (10:23→23:00)
--- NOTE | 2019-05-17 10:29 | Progress Note ---
Assessment and Plan Acute HFrEF Echo done 02/2019 showed EF 25-30%, dilated LV, dilated LA and RA, grade 2 diastolic dysfunction, mild to mod [place]. Cont coreg and losartan. LifeVest in place - battery exchanged. Pt appears to be nearing euvolemia. He may be discharged from cardiology standpoint. At discharge, recommend resuming home cardiac regimen, including PO lasix 40mg BID. ICMP Echo done 02/2019 showed EF 25-30%, dilated LV, dilated LA and RA, grade 2 diastolic dysfunction, mild to mod [place]. Cont GDMT and IV diuresis as tolerated. LifeVest in place. [facility] NSVT LifeVest in place. [facility]acy [facility]. Cont coreg and monitor electrolytes. CAD s/p CABG in 2008 Cont statin. Chronic atrial fibrillation and atrial flutter Rate controlled. Cont Coreg and Eliquis. HTN Stable. Cont hydralazine, coreg and losartan. DM Per primary. PVD / Chronic BLE wounds Wound care is following. Pt appears to be nearing euvolemia. He may be discharged from cardiology standpoint. At discharge, recommend resuming home cardiac regimen, including PO lasix 40mg BID. Recommend pt follow up with [place] cardiology within 3-5 days of discharge. Pt verbalizes understanding. The patient has been seen in conjunction with Dr. Becker who agrees with the assessment and plan of care. Subjective Date of service: 05/17/19 Principal diagnosis: HF Interval history: pt resting in bed, states he is feeling better today. tele reviewed - in AFib/AFlutter with HR 70s. Objective Last Vital Signs Temp 97.8 F 05/17/19 08:13 Pulse 75 05/17/19 10:23 Resp 18 05/17/19 08:13 BP 153/70 05/17/19 10:23 Pulse Ox 97 05/17/19 08:42 - Physical Examination General: No Apparent Distress HEENT: Positive: PERRL, Normocephaly, Mucus Membranes Moist Neck: Positive: neck supple, trachea midline Cardiac: Positive: irregularly irregular, S1/S2 Lungs: Positive: Decreased Breath Sounds Neuro: Positive: Grossly Intact Abdomen: Negative: Tender Skin: Positive: Other (BLE wounds, covered with dressings) Musculoskeletal: No Pain Extremities: Present: +2 Edema (BLE ) - Labs and Meds Comprehensive Metabolic Panel 05/17/19 Range/Units 04:15 Sodium 146 H (137-145) mmol/L Potassium 3.7 (3.6-5.0) mmol/L Chloride 102.1 (98-107) mmol/L Carbon Dioxide 31 H (22-30) mmol/L BUN 19 (9-20) mg/dL Creatinine 1.0 (0.8-1.5) mg/dL Glucose 168 H (75-100) mg/dL Calcium 7.7 L (8.4-10.2) mg/dL - Imaging and Cardiology EKG: report reviewed, image reviewed Echo: report reviewed ( 02/2019 showed EF 25-30%, dilated LV, dilated LA and RA, grade 2 diastolic dysfunction, mild to mod ID.)
--- NOTE | 2019-05-17 14:38 | Discharge Summary ---
Providers - Providers Date of Admission: 05/13/19 15:11 Date of discharge: 05/19/19 Attending physician: ADRIANA ADRIAN 05/13/19 15:19 Consult to Physician [CONS] Routine Comment: Consulting Provider: DEANA SALMERON Physician Instructions: Reason For Exam: chf 05/13/19 18:13 Consult to Wound/ET Nurse [CONS] Routine Reason For Exam: wound eval 05/16/19 01:27 Speech Therapy Evaluation and Treat [CONS] Routine Reason For Exam: Difficulty swallowing Primary care physician: GLASS SCULLION Hospitalization Condition: Stable Hospital course: Patient is a 83 yo man with a history of CAD s/p CABG in 2008, HFrEF, ICMP, NSVT, LifeVest in place, atrial fibrillation, anticoagulated on Eliquis, HTN, DM type 2, Op dsyphonia under ENT, PVD and chronic BLE wounds with bilateral mid- calf casts in place for which he is followed by wound care. He is followed by [place] [facility]. He presented with c/o progressively worsening SOB. He was found to have CHF Decompensation, as well as acute hypoxemic respiratory failure. Patient pulse oximetry fluctuates on room air between 85 and 88%. Patient treated with supplemental oxygen with mild improvement in symptoms. Echo done 02/2019 showed EF 25-30%, dilated LV, dilated LA and RA, grade 2 diastolic dysfunction, mild to mod [place]. * EKG Rhythm: Atrial Fibrillation * pCXR showed no acute findings * v/q scan showed low probability for PE Discharge Diagnoses: Acute on chronic systolic heart failure: treated with IV lasix BID, now once a day as patient was developing contraction alkalosis which resolved Acute hypoxic respiratory failure requiring O2 supplementation: on 2.5 liters o2, will try daily weaning attempts as CHF improves Malfunctioning LifeVEST s/p battery replacement ICMP with NSVT: LifeVest in situ. [facility], Cont coreg and monitor electrolytes, Cont to monitor on telemetry. CAD s/p CABG in 2008: Cont statin. Chronic atrial fibrillation: Rate controlled. Cont Coreg and Eliquis. HTN Stable. Cont hydralazine, coreg and losartan. Type 2 DM: treat with SSI added to home regimen and modify diet to ADA PVD / Chronic BLE wounds: Wound care done, cast removed DVT prophylaxis: SCD to bilateral lower extremities while in bed, continue therapeutic anticoagulation. Disposition: home, patient appealed his discharge on Monday because his caregiver was unavailable until Monday. Now, he wants to rescind his appeal go home via Ambulance Disposition: [place]- HOME UNDER HOME [facility] Time spent for discharge: 32 minutes Core Measure Documentation - Palliative Care Palliative Care/ Comfort Measures: Not Applicable - Core Measures Any of the following diagnoses?: none - VTE Discharge Requirements Deep Vein Thrombosis/Pulmonary Embolism Present on Admission: No Has pt received <5 days of overlap therapy or INR<2.0: No Anticoagulant overlap therapy prescribed at discharge: No Contraindication No Overlap Therapy order at DC: Not Indicated Exam - Physical Exam Narrative exam: Gen: chonically disable appearing, WDWN, NAD, Awake, Alert, Orientated x 3 HEENT: NCAT, EOMI, PERRL, OP Clear Neck: supple, no adenopathy, no thyromegaly, improved JVD CVS/Heart: irreg irreg, normal S1S2, pulses present bilaterally Chest/Lungs: diminished bs bilaterally, Symmetrical chest expansion, good air entry bilaterally GI/Abdomen: soft, NTND, good bowel sounds, no guarding or rebound /Bladder: no suprapubic tenderness, no CVA or paraspinal tenderness Extermity/Skin: bilateral venous leg changes, see wound care pic MSK: FROM x 4 Neuro: CN 2-12 grossly intact, no new focal deficits Psych: calm - Constitutional Vitals: Temp Pulse Resp BP Pulse Ox 98.3 F 77 18 127/48 97 05/17/19 12:39 05/17/19 12:39 05/17/19 12:39 05/17/19 12:39 05/17/19 10:00 Plan Activity: other (no strenous activity unless cleared by [place] [employer]) Diet: low salt, diabetic Wound: per wound nurse instructions Special Instructions: record daily BP diary, record blood sugar diary Follow up with: [facility] [Other] - 3 Days Prescriptions: carvediloL [Coreg] 6.25 mg PO BID #60 tablet Furosemide [Lasix TAB] 40 mg PO BID #60 tablet
--- NOTE | 2019-05-17 14:58 | Fluoroscopy Report ---
MODIFIED BARIUM SWALLOW / FL barium swallow modified INDICATION: dysphagia . COMPARISON: 02/26/2019. TECHNIQUE: Swallowing was evaluated in the lateral position under direct fluoroscopy. FINDINGS: Patient was evaluated using contrast coated food items among various consistencies such as puree, nectar, honey, mixed, thick, and thin liquids. Grossly normal swallowing mechanism. No aspiration or penetration. Few small radiopaque dental mater ial and missing teeth noted. Multilevel cervical spondylosis. IMPRESSION: Findings, as above. Please also correlate with speech pathologists' notes. Fluoroscopic time: 0.9 minutes Number of fluoroscopic images: 1 Thank you for the opportunity to participate in this patient's care. Signer Name: Dung Disla Signed: 05/17/2019 2:53 PM Workstation Name: [id number]
--- NOTE | 2019-05-17 17:28 | Progress Note ---
Assessment and Plan Assessment and plan: Patient is a 83 yo man with a history of CAD s/p CABG in 2008, HFrEF, ICMP, NSVT, LifeVest in place, atrial fibrillation, anticoagulated on Eliquis, HTN, DM type 2, Op dsyphonia under ENT, PVD and chronic BLE wounds with bilateral mid- calf casts in place for which he is followed by wound care. He is followed by [place] cardiology. He presented with c/o progressively worsening SOB. He was found to have CHF Decompensation, as well as acute hypoxemic respiratory failure. Patient pulse oximetry fluctuates on room air between 85 and 88%. Patient treated with supplemental oxygen with mild improvement in symptoms. Echo done 02/2019 showed EF 25-30%, dilated LV, dilated LA and RA, grade 2 diastolic dysfunction, mild to mod [place]. * EKG Rhythm: Atrial Fibrillation * pCXR showed no acute findings * v/q scan showed low probability for PE Acute on chronic systolic heart failure: treated with IV lasix BID, now once a day as patient was developing contraction alkalosis which resolved Acute hypoxic respiratory failure requiring O2 supplementation: on 2.5 liters o2, will try daily weaning attempts as CHF improves ICMP with NSVT: LifeVest in situ. [facility]ICD candidacy [facility], Cont coreg and monitor electrolytes, Cont to monitor on telemetry. CAD s/p CABG in 2008: Cont statin. Chronic atrial fibrillation: Rate controlled. Cont Coreg and Eliquis. HTN Stable. Cont hydralazine, coreg and losartan. Type 2 DM: treat with SSI added to home regimen and modify diet to ADA PVD / Chronic BLE wounds: Wound care done, cast removed DVT prophylaxis: SCD to bilateral lower extremities while in bed, continue therapeutic anticoagulation. Disposition: home with home care, Cardiology has cleared to go home patient appealed his discharge, daughter out of town. History Interval history: Patient was seen and examined. Follow-up on current diagnosis of CHF, improved with O2. Overnight uneventful as no events directly reported to me. Patient denies any chest pain, nausea/vomiting or severe headaches. Imaging, nursing note, chart, labs and old chart reviewed. Discussed with patient. Hospitalist Physical - Physical exam Narrative exam: Gen: chonically disable appearing, WDWN, NAD, Awake, Alert, Orientated x 3 HEENT: NCAT, EOMI, PERRL, OP Clear Neck: supple, no adenopathy, no thyromegaly, improved JVD CVS/Heart: irreg irreg, normal S1S2, pulses present bilaterally Chest/Lungs: diminished bs bilaterally, Symmetrical chest expansion, good air entry bilaterally GI/Abdomen: soft, NTND, good bowel sounds, no guarding or rebound /Bladder: no suprapubic tenderness, no CVA or paraspinal tenderness Extermity/Skin: bilateral venous leg changes, see wound care pic MSK: FROM x 4 Neuro: CN 2-12 grossly intact, no new focal deficits Psych: calm - Constitutional Vitals: Temp Pulse Resp BP Pulse Ox 98.3 F 77 18 127/48 97 05/17/19 12:39 05/17/19 12:39 05/17/19 12:39 05/17/19 12:39 05/17/19 10:00 General appearance: Present: no acute distress Results - Labs CBC & Chem 7: 05/13/19 09:35 05/17/19 04:15 Labs: Laboratory Last Values WBC 7.7 K/mm3 (4.5-11.0) 05/13/19 09:35 RBC 3.14 M/mm3 (3.65-5.03) L 05/13/19 09:35 Hgb 9.4 gm/dl (11.8-15.2) L 05/13/19 09:35 Hct 28.6 % (35.5-45.6) L 05/13/19 09:35 MCV 91 fl (84-94) 05/13/19 09:35 MCH 30 pg (28-32) 05/13/19 09:35 MCHC 33 % (32-34) 05/13/19 09:35 RDW 16.9 % (13.2-15.2) H 05/13/19 09:35 Plt Count 216 K/mm3 (140-440) 05/13/19 09:35 Lymph % (Auto) 13.1 % (13.4-35.0) L 05/13/19 09:35 [place] % (Auto) 8.7 % (0.0-7.3) H 05/13/19 09:35 Eos % (Auto) 0.4 % (0.0-4.3) 05/13/19 09:35 Baso % (Auto) 0.9 % (0.0-1.8) 05/13/19 09:35 Lymph # 1.0 K/mm3 (1.2-5.4) L 05/13/19 09:35 [place] # 0.7 K/mm3 (0.0-0.8) 05/13/19 09:35 Eos # 0.0 K/mm3 (0.0-0.4) 05/13/19 09:35 Baso # 0.1 K/mm3 (0.0-0.1) 05/13/19 09:35 Seg Neutrophils % 76.9 % (40.0-70.0) H 05/13/19 09:35 Seg Neutrophils # 5.9 K/mm3 (1.8-7.7) 05/13/19 09:35 PT 14.7 Sec. (12.2-14.9) 05/13/19 09:35 INR 1.13 (0.87-1.13) 05/13/19 09:35 APTT 22.5 Sec. (24.2-36.6) L 05/13/19 09:35 D-Dimer 1226.80 ng/mlDDU (0-234) H 05/13/19 09:35 Sodium 146 mmol/L (137-145) H 05/17/19 04:15 Potassium 3.7 mmol/L (3.6-5.0) 05/17/19 04:15 Chloride 102.1 mmol/L (98-107) 05/17/19 04:15 Carbon Dioxide 31 mmol/L (22-30) H 05/17/19 04:15 Anion Gap 17 mmol/L 05/17/19 04:15 BUN 19 mg/dL (9-20) 05/17/19 04:15 Creatinine 1.0 mg/dL (0.8-1.5) 05/17/19 04:15 Estimated GFR > 60 ml/min 05/17/19 04:15 BUN/Creatinine Ratio 19 % 05/17/19 04:15 Glucose 168 mg/dL (75-100) H 05/17/19 04:15 POC Glucose 228 (70-105) H 05/17/19 12:49 Calcium 7.7 mg/dL (8.4-10.2) L 05/17/19 04:15 Troponin T 0.038 ng/mL (0.00-0.029) H 05/13/19 15:00 NT-Pro-B Natriuret Pep 2083 pg/mL (0-900) H 05/13/19 09:35 Triglycerides 49 mg/dL (2-149) 05/13/19 09:35 Cholesterol 102 mg/dL (50-199) 05/13/19 09:35 LDL Cholesterol Direct 46 mg/dL (50-130) L 05/13/19 09:35 HDL Cholesterol 53 mg/dL (40-59) 05/13/19 09:35 Cholesterol/HDL Ratio 1.92 % 05/13/19 09:35 Active Medications - Current Medications Current Medications: Generic Name Dose Route Start Last Admin Trade Name Freq PRN Reason Stop Dose Admin Acetaminophen 650 mg 05/13/19 15:11 05/17/19 02:24 Tylenol PO 650 mg Q4H PRN Administration Pain MILD(1-3)/Fever >100.5/LARSON Albuterol 2.5 mg 05/13/19 15:11 05/15/19 17:50 Proventil IH 2.5 mg Q4HRT PRN Administration Shortness Of Breath Apixaban 5 mg 05/13/19 22:00 05/17/19 10:22 Eliquis PO 5 mg Q12HR CARMEN Administration Protocol Atorvastatin Calcium 20 mg 05/13/19 22:00 05/16/19 21:42 Lipitor PO 20 mg QHS CARMEN Administration Carvedilol 6.25 mg 05/14/19 22:00 05/17/19 10:23 Coreg PO 6.25 mg BID CARMEN Administration Dextrose 50 ml 05/15/19 10:36 D50w (25gm) Syringe IV Q30MIN PRN Hypoglycemia Protocol Furosemide 40 mg 05/16/19 10:00 05/17/19 10:23 Lasix IV 40 mg QDAY CARMEN Administration Hydralazine HCl 100 mg 05/13/19 20:00 05/17/19 15:06 Apresoline PO 100 mg TID CARMEN Administration Insulin Human Regular 0 units 05/15/19 11:30 05/17/19 12:43 Humulin R SUB-Q 2 units ACHS CARMEN Administration Protocol Losartan Potassium 100 mg 05/14/19 10:00 05/17/19 10:23 Cozaar PO 100 mg QDAY CARMEN Administration Ondansetron HCl 4 mg 05/13/19 15:11 Zofran IV Q8H PRN Nausea And Vomiting Sodium Chloride 10 ml 05/13/19 22:00 05/17/19 10:24 Sodium Chloride Flush Syringe 10 Ml IV 10 ml BID CARMEN Administration Sodium Chloride 10 ml 05/13/19 15:11 Sodium Chloride Flush Syringe 10 Ml IV PRN PRN LINE FLUSH Nutrition/Malnutrition Assess - Dietary Evaluation Nutrition/Malnutrition Findings: Nutrition Notes Start: 05/14/19 15:00 Freq: Status: Active Protocol: Document 05/16/19 12:05 AP (Rec: 05/16/19 12:13 AP [id number]) Co-Sign 05/16/19 12:05 LP Nutrition Notes Initial or Follow up Reassessment Current Diagnosis Diabetes,Hypertension,Heart Failure Other Pertinent Diagnosis SOB, PVD, CABG, Afib Current Diet Cardiac/CC Labs/Tests Na 148 BG 111 Pertinent Medications Reviewed Height 6 ft 3 in Weight 133.6 kg [place] Body Weight (kg) 89.09 BMI 36.8 Intake Prior to Admission Good Weight Status Obese Subjective/Other Information F/U for intakes. Pt consued 100% of bfast. Pt asked for ONS. Percent of energy/protein needs met: 92%/70% Burn Absent Trauma Absent GI Symptoms None Current % PO Good (75-100%) Minimum of two criteria No physical signs of malnutrition #1 Nutrition Diagnosis Increased nutrient needs ( specify in comment below) Diagnosis Progress(for reassessment Continues documentation) Is patient on ventilator? No Is Patient Ambulatory and/or Out of Bed Yes REE-([facility]-ambulatory/OOB) [ 2751.619 [id number]] Kcal/Kg value to use for calculation 16 Approximate Energy Requirements Using 2138 kcal/Kg Calculation Used for Recommendations Kcal/kg Additional Notes PRO: 111-133g/day (89 kg/IBW) Fluid: 1ml/kcal or per MD Nutrition Intervention Change Diet Order: Continue cardiac diet/cc Add Supplement/Snack (indicate name/kcal Ensure high protein daily /protein ) Provides kCal: 160 Provides Protein (gm) 16 Goal #1 Pt meet 80% of kcal/PRO needs Goal #2 wound healing Anticipated Discharge Needs: Cardiac/CC diet Follow-Up By: 05/22/19 Additional Comments F/U for PO/ONS intakes.
[2019-05-18] MEDS: INSULIN REGULAR, HUMAN 100 UNITS/1 ML SUB-Q SCH ×4 (08:30→22:55)
[2019-05-18] MEDS: hydrALAZINE 100 MG TAB PO SCH ×3 (09:40→21:34)
[2019-05-18] MEDS: FUROSEMIDE 40 MG/4 ML INJ IV SCH (09:40)
[2019-05-18] MEDS: carvediloL 6.25 MG TAB PO SCH ×2 (09:40→21:34)
[2019-05-18] MEDS: APIXABAN 5 MG TAB PO SCH ×2 (09:41→21:34)
[2019-05-18] MEDS: LOSARTAN 50 MG TAB PO SCH (09:41)
--- NOTE | 2019-05-18 15:07 | Progress Note ---
Assessment and Plan Assessment and plan: Patient is a 83 yo man with a history of CAD s/p CABG in 2008, HFrEF, ICMP, NSVT, LifeVest in place, atrial fibrillation, anticoagulated on Eliquis, HTN, DM type 2, Op dsyphonia under ENT, PVD and chronic BLE wounds with bilateral mid- calf casts in place for which he is followed by wound care. He is followed by [place] cardiology. He presented with c/o progressively worsening SOB. He was found to have CHF Decompensation, as well as acute hypoxemic respiratory failure. Patient pulse oximetry fluctuates on room air between 85 and 88%. Patient treated with supplemental oxygen with mild improvement in symptoms. Echo done 02/2019 showed EF 25-30%, dilated LV, dilated LA and RA, grade 2 diastolic dysfunction, mild to mod [place]. * EKG Rhythm: Atrial Fibrillation * pCXR showed no acute findings * v/q scan showed low probability for PE Acute on chronic systolic heart failure: treated with IV lasix BID, now once a day as patient was developing contraction alkalosis which resolved Acute hypoxic respiratory failure requiring O2 supplementation: on 2.5 liters o2, will try daily weaning attempts as CHF improves ICMP with NSVT: LifeVest in situ. [facility], Cont coreg and monitor electrolytes, Cont to monitor on telemetry. CAD s/p CABG in 2008: Cont statin. Chronic atrial fibrillation: Rate controlled. Cont Coreg and Eliquis. HTN Stable. Cont hydralazine, coreg and losartan. Type 2 DM: treat with SSI added to home regimen and modify diet to ADA PVD / Chronic BLE wounds: Wound care done, cast removed DVT prophylaxis: SCD to bilateral lower extremities while in bed, continue therapeutic anticoagulation. Disposition: home with home care, Cardiology has cleared to go home Patient appealed his discharge because daughter out of town. History Interval history: Patient was seen and examined. Follow-up on current diagnosis of CHF, improved with O2. Overnight uneventful as no events directly reported to me. Patient denies any chest pain, nausea/vomiting or severe headaches. Imaging, nursing no te, chart, labs and old chart reviewed. Discussed with patient. Hospitalist Physical - Physical exam Narrative exam: Gen: chonically disable appearing, WDWN, NAD, Awake, Alert, Orientated x 3 HEENT: NCAT, EOMI, PERRL, OP Clear Neck: supple, no adenopathy, no thyromegaly, improved JVD CVS/Heart: irreg irreg, normal S1S2, pulses present bilaterally Chest/Lungs: diminished bs bilaterally, Symmetrical chest expansion, good air en try bilaterally GI/Abdomen: soft, NTND, good bowel sounds, no guarding or rebound /Bladder: no suprapubic tenderness, no CVA or paraspinal tenderness Extermity/Skin: bilateral venous leg changes, see wound care pic MSK: FROM x 4 Neuro: CN 2-12 grossly intact, no new focal deficits Psych: calm - Constitutional Vitals: Temp Pulse Resp BP Pulse Ox 98.6 F 71 18 155/55 100 05/18/19 12:27 05/18/19 12:27 05/18/19 12:27 05/18/19 12:05/18/19 12:27 General appearance: Present: no acute distress Results - Labs CBC & Chem 7: 05/13/19 09:35 05/17/19 04:15 Labs: Laboratory Last Values WBC 7.7 K/mm3 (4.5-11.0) 05/13/19 09:35 RBC 3.14 M/mm3 (3.65-5.03) L 05/13/19 09:35 Hgb 9.4 gm/dl (11.8-15.2) L 05/13/19 09:35 Hct 28.6 % (35.5-45.6) L 05/13/19 09:35 MCV 91 fl (84-94) 05/13/19 09:35 MCH 30 pg (28-32) 05/13/19 09:35 MCHC 33 % (32-34) 05/13/19 09:35 RDW 16.9 % (13.2-15.2) H 05/13/19 09:35 Plt Count 216 K/mm3 (140-440) 05/13/19 09:35 Lymph % (Auto) 13.1 % (13.4-35.0) L 05/13/19 09:35 [place] % (Auto) 8.7 % (0.0-7.3) H 05/13/19 09:35 Eos % (Auto) 0.4 % (0.0-4.3) 05/13/19 09:35 Baso % (Auto) 0.9 % (0.0-1.8) 05/13/19 09:35 Lymph # 1.0 K/mm3 (1.2-5.4) L 05/13/19 09:35 [place] # 0.7 K/mm3 (0.0-0.8) 05/13/19 09:35 Eos # 0.0 K/mm3 (0.0-0.4) 05/13/19 09:35 Baso # 0.1 K/mm3 (0.0-0.1) 05/13/19 09:35 Seg Neutrophils % 76.9 % (40.0-70.0) H 05/13/19 09:35 Seg Neutrophils # 5.9 K/mm3 (1.8-7.7) 05/13/19 09:35 PT 14.7 Sec. (12.2-14.9) 05/13/19 09:35 INR 1.13 (0.87-1.13) 05/13/19 09:35 APTT 22.5 Sec. (24.2-36.6) L 05/13/19 09:35 D-Dimer 1226.80 ng/mlDDU (0-234) H 05/13/19 09:35 Sodium 146 mmol/L (137-145) H 05/17/19 04:15 Potassium 3.7 mmol/L (3.6-5.0) 05/17/19 04:15 Chloride 102.1 mmol/L (98-107) 05/17/19 04:15 Carbon Dioxide 31 mmol/L (22-30) H 05/17/19 04:15 Anion Gap 17 mmol/L 05/17/19 04:15 BUN 19 mg/dL (9-20) 05/17/19 04:15 Creatinine 1.0 mg/dL (0.8-1.5) 05/17/19 04:15 Estimated GFR > 60 ml/min 05/17/19 04:15 BUN/Creatinine Ratio 19 % 05/17/19 04:15 Glucose 168 mg/dL (75-100) H 05/17/19 04:15 POC Glucose 223 (70-105) H 05/18/19 12:34 Calcium 7.7 mg/dL (8.4-10.2) L 05/17/19 04:15 Troponin T 0.038 ng/mL (0.00-0.029) H 05/13/19 15:00 NT-Pro-B Natriuret Pep 2083 pg/mL (0-900) H 05/13/19 09:35 Triglycerides 49 mg/dL (2-149) 05/13/19 09:35 Cholesterol 102 mg/dL (50-199) 05/13/19 09:35 LDL Cholesterol Direct 46 mg/dL (50-130) L 05/13/19 09:35 HDL Cholesterol 53 mg/dL (40-59) 05/13/19 09:35 Cholesterol/HDL Ratio 1.92 % 05/13/19 09:35 Active Medications - Current Medications Current Medications: Generic Name Dose Route Start Last Admin Trade Name Freq PRN Reason Stop Dose Admin Acetaminophen 650 mg 05/13/19 15:11 05/17/19 02:24 Tylenol PO 650 mg Q4H PRN Administration Pain MILD(1-3)/Fever >100.5/LARSON Albuterol 2.5 mg 05/13/19 15:11 05/15/19 17:50 Proventil IH 2.5 mg Q4HRT PRN Administration Shortness Of Breath Apixaban 5 mg 05/13/19 22:00 05/18/19 09:41 Eliquis PO 5 mg Q12HR CARMEN Administration Protocol Atorvastatin Calcium 20 mg 05/13/19 22:00 05/17/19 23:00 Lipitor PO 20 mg QHS CARMEN Administration Carvedilol 6.25 mg 05/14/19 22:00 05/18/19 09:40 Coreg PO 6.25 mg BID CARMEN Administration Dextrose 50 ml 05/15/19 10:36 D50w (25gm) Syringe IV Q30MIN PRN Hypoglycemia Protocol Furosemide 40 mg 05/16/19 10:00 05/18/19 09:40 Lasix IV 40 mg QDAY CARMEN Administration Hydralazine HCl 100 mg 05/13/19 20:00 05/18/19 13:18 Apresoline PO 100 mg TID CARMEN Administration Insulin Human Regular 0 units 05/15/19 11:30 05/18/19 12:30 Humulin R SUB-Q 2 units ACHS CARMEN Administration Protocol Losartan Potassium 100 mg 05/14/19 10:00 05/18/19 09:41 Cozaar PO 100 mg QDAY CARMEN Administration Ondansetron HCl 4 mg 05/13/19 15:11 Zofran IV Q8H PRN Nausea And Vomiting Sodium Chloride 10 ml 05/13/19 22:00 05/18/19 09:41 Sodium Chloride Flush Syringe 10 Ml IV 10 ml BID CARMEN Administration Sodium Chloride 10 ml 05/13/19 15:11 Sodium Chloride Flush Syringe 10 Ml IV PRN PRN LINE FLUSH Nutrition/Malnutrition Assess - Dietary Evaluation Nutrition/Malnutrition Findings: Nutrition Notes Start: 05/14/19 1 5:00 Freq: Status: Active Protocol: Document 05/16/19 12:05 AP (Rec: 05/16/19 12:13 AP [id number]) Co-Sign 05/16/19 12:05 LP Nutrition Notes Initial or Follow up Reassessment Current Diagnosis Diabetes,Hypertension,Heart Failure Other Pertinent Diagnosis SOB, PVD, CABG, Afib Current Diet Cardiac/CC Labs/Tests Na 148 BG 111 Pertinent Medications Reviewed Height 6 ft 3 in Weight 133.6 kg [place] Body Weight (kg) 89.09 BMI 36.8 Intake Prior to Admission Good Weight Status Obese Subjective/Other Information F/U for intakes. Pt consued 100% of bfast. Pt asked for ONS. Percent of energy/protein needs met: 92%/70% Burn Absent Trauma Absent GI Symptoms None Current % PO Good (75-100%) Minimum of two criteria No physical signs of malnutrition #1 Nutrition Diagnosis Increased nutrient needs ( specify in comment below) Diagnosis Progress(for reassessment Continues documentation) Is patient on ventilator? No Is Patient Ambulatory and/or Out of Bed Yes REE-([facility]-ambulatory/OOB) [ 2751.619 [id number]] Kcal/Kg value to use for calculation 16 Approximate Energy Requirements Using 2138 kcal/Kg Calculation Used for Recommendations Kcal/kg Additional Notes PRO: 111-133g/day (89 kg/IBW) Fluid: 1ml/kcal or per MD Nutrition Intervention Change Diet Order: Continue cardiac diet/cc Add Supplement/Snack (indicate name/kcal Ensure high protein daily /protein ) Provides kCal: 160 Provides Protein (gm) 16 Goal #1 Pt meet 80% of kcal/PRO needs Goal #2 wound healing Anticipated Discharge Needs: Cardiac/CC diet Follow-Up By: 02/05/20 Additional Comments F/U for PO/ONS intakes.
[2019-05-19] MEDS: INSULIN REGULAR, HUMAN 100 UNITS/1 ML SUB-Q SCH ×2 (08:18→12:48)
[2019-05-19 08:27] VITALS: BP 137/50
[2019-05-19] MEDS: hydrALAZINE 100 MG TAB PO SCH (08:55)
[2019-05-19] MEDS: APIXABAN 5 MG TAB PO SCH (09:09)
[2019-05-19] MEDS: LOSARTAN 50 MG TAB PO SCH (09:09)
[2019-05-19] MEDS: carvediloL 6.25 MG TAB PO SCH (09:09)
[2019-05-19] MEDS: FUROSEMIDE 40 MG/4 ML INJ IV SCH (09:10)
== END 2019-05-19 14:09 | disposition home health service (06) | DRG 291 ==
LOC: ED 08:14 → 4A 15:11
PROVIDERS: ADMIT Internal Medicine; ATTEND Internal Medicine
PROC: 5A09357 Assistance with Respiratory Ventilation, Less than 24 Consecutive Hours, Continuous Positive Airway Pressure (ICD-10-PCS; principal; 2019-05-14)
PROC: 5A09357 Assistance with Respiratory Ventilation, Less than 24 Consecutive Hours, Continuous Positive Airway Pressure (ICD-10-PCS; 2019-05-15)
PROC: 5A09357 Assistance with Respiratory Ventilation, Less than 24 Consecutive Hours, Continuous Positive Airway Pressure (ICD-10-PCS; 2019-05-16)
PROC: 5A09357 Assistance with Respiratory Ventilation, Less than 24 Consecutive Hours, Continuous Positive Airway Pressure (ICD-10-PCS; 2019-05-19)
DX: I11.0 Hypertensive heart disease with heart failure (principal); J96.01 Acute respiratory failure with hypoxia; I48.20 Chronic atrial fibrillation, unspecified; J44.1 Chronic obstructive pulmonary disease with (acute) exacerbation; E66.2 Morbid (severe) obesity with alveolar hypoventilation; I48.92 Unspecified atrial flutter; I50.23 Acute on chronic systolic (congestive) heart failure; I25.10 Atherosclerotic heart disease of native coronary artery without angina pectoris; I73.9 Peripheral vascular disease, unspecified; E87.6 Hypokalemia; E11.51 Type 2 diabetes mellitus with diabetic peripheral angiopathy without gangrene; D64.9 Anemia, unspecified; R35.8 Other polyuria; I48.0 Paroxysmal atrial fibrillation; I25.5 Ischemic cardiomyopathy; R60.9 Edema, unspecified; Z95.1 Presence of aortocoronary bypass graft; Z79.01 Long term (current) use of anticoagulants; Z99.81 Dependence on supplemental oxygen; Z87.891 Personal history of nicotine dependence; Z79.899 Other long term (current) drug therapy; Z68.37 Body mass index [BMI] 37.0-37.9, adult; Z83.3 Family history of diabetes mellitus; Z82.49 Family history of ischemic heart disease and other diseases of the circulatory system; Z88.6 Allergy status to analgesic agent
CPT/HCPCS: 36415; 71045; 74230; 78582; 80048; 80061; 82962; 83880; 84484; 85025; 85379; 85610; 85730; 93005; 93010; 94640; 94644; 94660; 94760; 96374; G0378; A9270-GY; A9540; A9558; J1815; J1940

== ENCOUNTER 2019-05-22 10:48 | Outpatient (CLI) | payer MEDICARE ==
[2019-05-22] MEDS ORDERED: LIDOCAINE (4%) 40 MG/ML TOPICAL SOLN 50 ML BOTTLE TP ONE (12:48)
== END 2019-05-22 10:49 | disposition home or self-care (01) ==
LOC: WOUND 10:48
PROVIDERS: ATTEND Surgery
DX: I87.313 Chronic venous hypertension (idiopathic) with ulcer of bilateral lower extremity (principal); E11.621 Type 2 diabetes mellitus with foot ulcer; L89.893 Pressure ulcer of other site, stage 3; L97.512 Non-pressure chronic ulcer of other part of right foot with fat layer exposed; L97.522 Non-pressure chronic ulcer of other part of left foot with fat layer exposed; E11.622 Type 2 diabetes mellitus with other skin ulcer; L97.821 Non-pressure chronic ulcer of other part of left lower leg limited to breakdown of skin; I89.0 Lymphedema, not elsewhere classified; I87.2 Venous insufficiency (chronic) (peripheral); I25.10 Atherosclerotic heart disease of native coronary artery without angina pectoris; Z87.891 Personal history of nicotine dependence

== ENCOUNTER 2019-05-30 13:02 | Outpatient (CLI) | payer MEDICARE ==
[2019-05-30] MEDS ORDERED: VITAMIN A & D OINT 56.7 GM TP SCH (14:00)
== END 2019-05-30 13:03 | disposition home or self-care (01) ==
LOC: WOUND 13:02
PROVIDERS: ATTEND Surgery
DX: I87.313 Chronic venous hypertension (idiopathic) with ulcer of bilateral lower extremity (principal); E11.621 Type 2 diabetes mellitus with foot ulcer; L97.512 Non-pressure chronic ulcer of other part of right foot with fat layer exposed; L97.522 Non-pressure chronic ulcer of other part of left foot with fat layer exposed; E11.622 Type 2 diabetes mellitus with other skin ulcer; L97.821 Non-pressure chronic ulcer of other part of left lower leg limited to breakdown of skin; I89.0 Lymphedema, not elsewhere classified; I87.2 Venous insufficiency (chronic) (peripheral); I25.10 Atherosclerotic heart disease of native coronary artery without angina pectoris; Z87.891 Personal history of nicotine dependence
CPT/HCPCS: A6250

== ENCOUNTER 2019-06-12 09:49 | Outpatient (CLI) | payer MEDICARE ==
[2019-06-12] MEDS ORDERED: LIDOCAINE (4%) 40 MG/ML TOPICAL SOLN 50 ML BOTTLE TP ONE (11:00)
== END 2019-06-12 09:50 | disposition home or self-care (01) ==
LOC: WOUND 09:49
PROVIDERS: ATTEND Surgery
DX: I87.313 Chronic venous hypertension (idiopathic) with ulcer of bilateral lower extremity (principal); E11.621 Type 2 diabetes mellitus with foot ulcer; L97.512 Non-pressure chronic ulcer of other part of right foot with fat layer exposed; L97.522 Non-pressure chronic ulcer of other part of left foot with fat layer exposed; E11.622 Type 2 diabetes mellitus with other skin ulcer; L97.821 Non-pressure chronic ulcer of other part of left lower leg limited to breakdown of skin; I89.0 Lymphedema, not elsewhere classified; I87.2 Venous insufficiency (chronic) (peripheral); I25.10 Atherosclerotic heart disease of native coronary artery without angina pectoris; Z87.891 Personal history of nicotine dependence

== ENCOUNTER 2019-06-19 10:17 | Outpatient (CLI) | payer MEDICARE ==
[2019-06-19] MEDS ORDERED: LIDOCAINE (4%) 40 MG/ML TOPICAL SOLN 50 ML BOTTLE TP ONE (11:00)
== END 2019-06-19 10:18 | disposition home or self-care (01) ==
LOC: WOUND 10:17
PROVIDERS: ATTEND Surgery
DX: E11.621 Type 2 diabetes mellitus with foot ulcer (principal); L97.522 Non-pressure chronic ulcer of other part of left foot with fat layer exposed; L97.512 Non-pressure chronic ulcer of other part of right foot with fat layer exposed; E11.622 Type 2 diabetes mellitus with other skin ulcer; L97.812 Non-pressure chronic ulcer of other part of right lower leg with fat layer exposed; L97.421 Non-pressure chronic ulcer of left heel and midfoot limited to breakdown of skin; I11.0 Hypertensive heart disease with heart failure; I50.9 Heart failure, unspecified; I25.10 Atherosclerotic heart disease of native coronary artery without angina pectoris; Z90.89 Acquired absence of other organs; Z95.1 Presence of aortocoronary bypass graft; Z87.891 Personal history of nicotine dependence